=== PATIENT | female | born 1960 | race Caucasian/White ===

== ENCOUNTER 2023-02-22 13:07 | Outpatient (OUT) | payer MEDICARE, SELFPAY ==
--- NOTE | 2023-02-22 13:20 | XR_ITS ---
The [address] [address] Patient Name: PRASANNA RIVER MRN: [facility]:[id number] date: 1960 Sex: F Assigned Patient Location: MRI Current Patient Location: MRI Accession/Order Number: [id number] Exam Date: 02/22/2023 13:22 Report Date: 02/22/2023 23:31 At the request of: NON-STAFF PHYSICIAN Procedure: XR lumbar spine min 4V EXAMINATION: XR lumbar spine min 4V HISTORY: Lumbosacral region radiculopathy M54.17 ; chronic lumbar pain radiating into right leg COMPARISON: No relevant comparison available. FINDINGS: BONES: Mild left convex curvature lumbar spine. Mild degenerative facet arthropathy L4-L5, L5-S1. No fracture spondylolisthesis. DISC SPACES: Moderate disc space narrowing L4-L5, L5-S1. Disc bulging and likely some bone encroachment narrowing the L4-L5 and L5-S1 neural foramen. PARASPINOUS: Negative. No paraspinous abnormality is seen. OTHER: Negative. XR/XR lumbar spine min 4V IMPRESSION: 1. No appreciable acute abnormality. 2. Moderate degenerative changes of lower lumbar spine likely contributing to patient's symptoms. Electronically authenticated by: MOO CASTANO Date: 02/22/2023 23:31
--- NOTE | 2023-02-22 13:20 | MR_ITS ---
[address] [address] Patient Name: PRASANNA RIVER MRN: [facility]:[id number] date: 1960 Sex: F Assigned Patient Location: MRI Current Patient Location: MRI Accession/Order Number: [id number] Exam Date: 02/22/2023 13:39 Report Date: 02/22/2023 23:29 At the request of: NON-STAFF PHYSICIAN Procedure: MR lumbar spine wo con EXAMINATION: MR lumbar spine wo con HISTORY: Lumbosacral region radiculopathy M54.17 ; chronic lumbar pain radiating into right leg COMPARISON: No relevant comparison available. TECHNIQUE: A variety of imaging planes and parameters were utilized for visualization of suspected pathology. FINDINGS: For the purposes of numbering, sagittal T2 image # 8 extends from the T10 vertebral body superiorly to the S2 level inferiorly. PARASPINAL AREA: Normal with no visible mass. BONES: No fracture, pars defect, or osseous lesion. CORD/CAUDA EQUINA: Normal caliber, contour, and signal intensity. DISC LEVELS: 12-L1: No significant disc/facet abnormality, spinal stenosis, or foraminal stenosis. L1-L2: Mild diffuse disc bulging and disc space narrowing without significant central canal or foraminal stenosis. L2-L3: Early degenerative disc disease is present without focal protrusion or neural impingement. L3-L4: Moderate degenerative disc disease is present without visible neural impingement. L4-L5: Moderate marked disc space narrowing with mild diffuse disc bulging eccentric to the right causing moderate right foramen narrowing. No significant central canal or left foramen narrowing. Mild right degenerative facet arthropathy. L5-S1: Moderate right foramen narrowing secondary to moderate eccentric disc bulging to the right and moderate disc space narrowing. Mild degenerative facet arthropathy bilaterally. MR/MR lumbar spine wo con IMPRESSION: 1. Multilevel moderate foramen narrowing and mild central canal narrowing predominantly due to degenerative disc disease and disc bulging. 2. Mild degenerative facet arthropathy of lower lumbar spine. Electronically authenticated by: MOO CASTANO Date: 02/22/2023 23:29
== END 2023-02-22 13:08 | disposition home or self-care (01) ==
LOC: MRI 13:12
PROVIDERS: PCP Family Medicine
DX: M54.17 Radiculopathy, lumbosacral region (principal); M51.37 Other intervertebral disc degeneration, lumbosacral region; M48.07 Spinal stenosis, lumbosacral region
CPT/HCPCS: 72110; 72148

== ENCOUNTER 2023-04-12 08:54 | Outpatient (OUT) | payer MEDICARE, SELFPAY ==
--- OUTSIDE RECORDS SUMMARY | 2023-04-12 08:57 | XMS_ITS | CCD ---
Author Name Unknown Address [address] [place] [id number] Organization [facility] Care Team Providers Care Automatic Line Set Up Mechanic Name Role Phone ENRICO BELLO Admitting Unavailable ENRICO BELLO Attending Unavailable ENRICO BELLO Consulting Unavailable Larry Granado Primary Care Provider JODEE, DR NIELSEN Admitting Unavailable JODEE, DR NIELSEN Attending Unavailable ZAKIYA, DR EDWARDS Primary Care Unavailable DARIN, DR WOLFE Admitting Unavailable DARIN, DR WOLFE Attending Unavailable ZAKIYA, DR EDWARDS Primary Care Unavailable HENRIQUE MIGUEL Consulting Unavailable DARIN, DR WOLFE Consulting Unavailable JODEE, DR NIELSEN Admitting Unavailable JODEE, DR NIELSEN Attending Unavailable ZAKIYA, DR EDWARDS Primary Care Unavailable DR Prashant HERRING Consulting Unavailable Drew Herring Unavailable [phone] Drew Herring Admitting UnavailConner Disla Primary Care Unavailable Drew Herring Attending UnavailAashish Lopez Attending Unavailable Aashish Singh Admitting Unavailable NO FAMILY, PHYSICIAN Primary Care Unavailable Mathew Felix Attending Unavailable Mathew Felix Admitting Unavailable Conner Sigala Primary Care Unavailable CONNER SIGALA Attending Unavailable CONNER SIGALA Referring Unavailable JERMAINE VALLES Attending Unavailable CONNER SIGALA Referring Unavailable Allergies Allergy Classification Reported Allergen(s) Allergy Type Date of Onset Reaction(s) Facility (1 source) Aspirin Drug Allergy 05-17-19 07 [facility] Work Phone: (1 source) Ibuprofen Drug Allergy 05-17-19 07 [facility] Work Phone: (1 source) Acetaminophen / HYDROcodone Drug Allergy 12-11-19 14 [facility] (1 source) Aspirin Drug Allergy 02-11-20 13 [facility] (1 source) Ibuprofen Drug Allergy 02-11-20 13 [facility] (1 source) Latex Drug allergy (disorder) 02-27-20 14 [facility] (1 source) Meperidine Drug Allergy 02-11-20 13 [facility] (1 source) NSAIDs Drug allergy (disorder) 02-27-20 14 [facility] (2 sources) Sulfonamides (Antibiotic) Propensity to adverse reactions Unknown [place] Other (2 sources) Narcotic Pains Meds Propensity to adverse reactions (Emiliano) 01/12/2012 SOB SOB [place] Other (2 sources) Motrin, Aspirin Propensity to adverse reactions (Emiliano) 01/12/2012 Shock Shock [place] Other (1 source) Aspirin Drug Allergy 05-31-19 18 [facility]ository (1 source) Ibuprofen Drug Allergy 05-31-19 18 [facility] (1 source) Meperidine Drug Allergy 05-31-19 18 [facility] Medications Current Medications Medication Drug Class(es) Dates Sig (Normalized) Sig (Original) benoxinate hydrochloride 4 mg/ml / fluorescein sodium 2.5 mg/ml ophthalmic solution (1 source) Diagnostic Dye Start: 11-10-2021 End: 11-11-2021 fluorescein-benoxi shane 0.25-0.4 % 1 Drop (FLURESS) budesonide 3 mg delayed release oral capsule (2 sources) Corticosteroid Start: 09-07-2022 take 3 capsules by mouth once daily Budesonide 3 MG 3 CAPS Orally Once a day for 30 days August, Active pantoprazole 40 mg delayed release oral tablet (2 sources) Proton Pump Inhibitor Start: 09-19-2019 take 1 tablet by mouth every twenty-four hours Pantoprazole Sodium 40 MG 1 tablet Orally Once a day for 30 day(s) Sep, Active phenylephrine hydrochloride 25 mg/ml ophthalmic solution (1 source) alpha-1 Adrenergic Agonist Start: 11-10-2021 End: 11-11-2021 PHENYLephrine 2.5 % 1 Drop (AK-DILATE, ABRAHAM-SYNEPHRINE) potassium chloride 20 meq extended release oral tablet (1 source) take 1 tablet by mouth every twenty-four hours Potassium Chloride ER 20 MEQ 1 tablet with food Orally Once a day for 30 days Active probiotic (1 source) probiotic as directed Active proparacaine hydrochloride 5 mg/ml ophthalmic solution (1 source) Local Anesthetic Start: 11-10-2021 End: 11-11-2021 proparacaine 0.5 % 1 Drop (ALCAINE) tropicamide 10 mg/ml ophthalmic solution (1 source) Anticholinergic Start: 11-10-2021 End: 11-11-2021 tropicamide 1 % 1 Drop (MYDRIACYL) Completed/Discontinued Medications Medication Drug Class(es) Dates Sig (Normalized) Sig (Original) albuterol 0.83 mg/ml inhalation solution (1 source) beta2-Adrenergic Agonist Start: 07-01-2020 albuterol (PROVENTIL) 2.5 mg /3 mL (0.083 %) nebulizer solution Use via nebulizer as needed. 0 07/01/2020 Active Comment on above: Use via nebulizer as needed. ALPRAZolam 0.5 mg oral tablet (1 source) Benzodiazepine Start: 11-16-2006 take 1 tablet by mouth once daily alprazolam (XANAX) 0.5 mg ORAL Tab Take one(1) tablet three(3) times daily. 0 0 11/16/2006 Active Comment on above: Take one(1) tablet t hree(3) times daily. amLODIPine 5 mg oral tablet (1 source) Dihydropyridine Calcium Channel Arlyn take 1 tablet by mouth once daily amLODIPine (NORVASC) 5 mg tablet Take 1 tablet by mouth once daily. 0 Active Comment on above: Take 1 tablet by kat once daily. clonazePAM 1 mg oral tablet (1 source) Benzodiazepine Start: 01-13-2015 take 0.5 tablet by mouth once daily clonazePAM 1 MG 1/2 tab Orally daily Jan, Not-Taking clopidogrel 75 mg oral tablet (3 sources) P2Y12 Platelet Inhibitor Start: 11-02-2021 take 1 tablet by mouth once daily clopidogrel (PLAVIX) 75 mg tablet Take 75 mg by mouth once daily. 0 11/02/2021 Active Comment on above: Take 75 mg by mouth once daily. dicyclomine hydrochloride 20 mg oral tablet (1 source) Anticholinergic Start: 07-21-2020 take 1 tablet by mouth once daily dicyclomine (BENTYL) 20 mg tablet Take 20 mg by mouth once daily. 0 07/21/2020 Active Comment on above: Take 20 mg by mouth once daily. escitalopram 20 mg oral tablet (3 sources) Serotonin Reuptake Inhibitor Start: 10-16-2021 take 1 tablet by mouth once daily escitalopram oxalate (LEXAPRO) 20 mg tablet Take 20 mg by mouth once daily. 0 10/16/2021 Active take 1 tablet by kat th every twenty-four hours Lexapro 10 MG 1 tablet Orally Once a day Active Comment on above: Take 20 mg by mouth once daily. Ethinyl Estradiol / Norethindrone (1 source) Estrogen Start: 05-18-19 07 LOESTRIN 04/30 (21) 1 MG-20 MCG TAB Take one(1) tablet daily. 0 0 05/18/2006 Active Comment on above: Take one(1) tablet d aily. fluticasone propionate 0.05 mg/actuat metered dose nasal spray (1 source) Corticosteroid Start: 08-22-19 take 1 spray(s) nasal route once daily fluticasone (FLONASE) 50 mcg/actuation nasal spray Use 1 [place] in each nostril once daily. 0 08/21/2021 Active Comment on above: Use 1 [place] in each nostril once daily. Methylcellulose (1 source) Citrucel Not-Jonnathan ing 24 hr metoprolol succinate 25 mg extended release oral tablet (4 sources) beta-Adrenergic Arlyn Start: 05-18-19 End: 11-11-19 22 TOPROL XL 25 MG 24 HR TAB Take one(1) tablet daily. 0 0 05/18/2006 11/10/2021 Discontinued take 1 tablet by kat th every twenty-four hours Metoprolol Tartrate 25 MG 1 tablet Orall y once a day Active Comment on above: Take 1 tablet by kat th once daily. Take one(1) tablet d aily. omeprazole 40 mg delayed release oral capsule (1 source) Proton Pump Inhibitor take 1 capsule by mouth once daily omeprazole (PRILOSEC) 40 mg capsule Take 40 mg by mouth once daily. 0 Active Comment on above: Take 40 mg by mouth once daily. 24 hr oxybutynin chloride 10 mg extended release oral tablet (1 source) Cholinergic Muscarinic Antagonist Start: 2 take 1 tablet by mouth once daily oxybutynin ER (DITROPAN XL) 10 mg 24 hr tablet Take 10 mg by mouth once daily. 0 09/21/2021 Active Comment on above: Take 10 mg by mouth once daily. pravastatin sodium 40 mg oral tablet (3 sources) HMG-CoA Reductase Inhibitor Start: 2 take 1 tablet by mouth once daily pravastatin (PRAVACHOL) 40 mg tablet Take 40 mg by mouth once daily. 0 08/20/2021 Active take 1 tablet by mouth once ed y Pravastatin 10 mg one tab orally daily Active Comment on above: Take 40 mg by mouth once daily. predniSONE 10 mg oral tablet (2 sources) Start: 08-19-19 predniSONE 10 MG 8 tablet on day one then decrease by 1 tablet until gone Orally Once a day for 8 day(s) August, Not-Taking risperiDONE 0.25 mg oral tablet (1 source) Atypical Antipsychotic Start: 11-17-19 07 take 1 tablet by mouth once daily risperidone (RISPERDAL) 0.25 mg ORAL Tab Take one(1) tablet two(2) times daily. 0 0 11/16/2006 Active Comment on above: Take one(1) tablet t wo(2) times daily. THERAPEUTIC MULTIVITAMIN TAB (1 source) Start: 05-18-19 THERAPEUTIC MULTIVITAMIN TAB Take one(1) tablet daily. 0 0 05/18/2006 Active Comment on above: Take one(1) tablet d aily. tiZANidine (1 source) Central alpha-2 Adrenergic Agonist tiZANidine HCl Not-Taking Problems Active Problems Problem Classification Problem Date Documented Da te Episodic/Chronic Abdominal pain (4 sources) Abdominal pain; Translations: [Unspecified abdominal pain] Episodic Anal and rectal conditions (2 sources) Anal and rectal polyp; Translations: [Rectal polyp] Episodic Blindness and vision defects (1 source) Visual field defect; Translations: [Unspecified visual field defects] Episodic Esophageal disorders (2 sources) Gastroesophageal reflux disease; Translations: [Gastro-esophageal reflux disease without esophagitis] Chronic Genitourinary symptoms and ill-defined conditions (1 source) Post-void dribbling; Translations: [Post-void dribbling] Onset: 3 Chronic Intestinal obstruction without hernia (2 sources) Small bowel obstruction; Translations: [Unspecified intestinal obstruction, unspecified as to partial versus complete obstruction] Episodic Noninfectious gastroenteritis (5 sources) Colitis; Translations: [Noninfective gastroenteritis and colitis, unspecified] Onset: 3 Episodic Other and unspecified benign neoplasm (2 sources) Hyperplastic polyp of intestine; Translations: [Polyp of colon] Episodic Other and unspecified benign neoplasm (2 sources) Benign neoplasm of rectum; Translations: [Benign neoplasm of rectum] Episodic Other and unspecified benign neoplasm (2 sources) Benign neoplasm of colon; Translations: [Benign neoplasm of sigmoid colon] Episodic Other bone disease and musculoskeletal deformities (4 sources) Other specified disorders of bone density and structure, unspecified site; Translations: [OTH D/O BONE DEN STRUCT UNS SITE] Onset: 3 Episodic Other gastrointestinal disorders (2 sources) Irritable bowel syndrome with diarrhea; Translations: [Irritable bowel syndrome with diarrhea] Chronic Other gastrointestinal disorders (2 sources) Diarrhea; Translations: [Diarrhea, unspecified] Episodic Other gastrointestinal disorders (2 sources) Dysphagia; Translations: [Dysphagia, unspecified] Episodic Other screening for suspected conditions (not mental disorders or infectious disease) (2 sources) Encounter for screening for osteoporosis; Translations: [Encounter for screening mammogram for malignant neoplasm of breast] Onset: 3 Episodic Regional enteritis and ulcerative colitis (2 sources) Chronic ulcerative pancolitis; Translations: [Ulcerative (chronic) pancolitis with unspecified complications] Chronic Residual codes; unclassified (4 sources) Asymptomatic menopausal state; Translations: [ASYMPTOMATIC MENOPAUSAL STATE] Onset: 3 Episodic Spondylosis; intervertebral disc disorders; other back problems (2 sources) Other intervertebral disc degeneration, lumbar region; Translations: [Spondylosis without myelopathy or radiculopathy, lumbar region] Onset: 3 Chronic Spondylosis; intervertebral disc disorders; other back problems (1 source) Radiculopathy, site unspecified; Translations: [RADICULOPATHY SITE UNSPECIFIED] Onset: 3 Episodic Urinary tract infections (1 source) Urinary tract infections; Translations: [Urinary tract infection, site not specified] Onset: 3 Past or Other Problems Problem Classification Problem Date Documented Da te Episodic/Chronic Genitourinary symptoms and ill-defined conditions (3 sources) Retention of urine, unspecified; Translations: [Frequency of micturition] Onset: 09-09-2022 Episodic Other gastrointestinal disorders (6 sources) Diarrhea, unspecified; Translations: [DIARRHEA UNSPECIFIED] Onset: 08-19-2022 Episodic Other nervous system disorders (1 source) Unsteadiness on feet; Translations: [Unsteadiness on feet] Onset: 04-30-2022 Episodic Results Test Name Value Interpretation Reference Range Facil ity XR CHEST 2 VIEWSon 3 XR CHEST 2 VIEWS EXAMINATION/TECHNIQU E: XR CHEST 2 VIEWS HISTORY: Chest pressure. COMPARISON: None RESULT: No focal consolidation. No pleural effusion. No pneumothorax. Normal cardiomediastinal silhouette. No acute osseous findings. Surgical clips right upper quadrant. IMPRESSION: No acute radiographic abnormality. ELECTRONICALLY SIGNED BY: Clark Wheeler MD Normal Not Available Urine Cultureon 09-09-2022 Bacteria identified Cx Nom (U) No Growth 2 Days PERFORMED BY: [place] [address] PATHOLOGIST STILL OPERATOR HELPER PATEL LAWSON M.D. Normal [facility] Comment on above: Performed By: #### C UU #### [address] 09-02-2022 L --- Specimen: [id number] Received: 09/02/22 Status: MOLLY Katelyn Num: [id number] Spec Type: Surgical Subm Dr: Drew Herring MD Tissues: A Colon Biopsy (RANDOM COLON BX) Procedures: Trichrome, HE/2, Gross/Micro L4, CD3 Age/ Patient Sex Location Account Attending Physician Rosalba River Prashant 62/F [id number] Drew Herring MD SPEC NUM: [id number] RECD: 09/02/22-1315 STATUS: MOLLY ZEPEDA NUM: [id number] IOANA: 09/02/22- [facility] DR: Drew Herring MD ENTERED: 09/02/22-1317 [facility] DR: DIAZ TYPE: Surgical DEPT: S ORDERED: Trichrome, HE/2, Gross/Micro L4, CD3 ORDERED: Trichrome, HE/2, Gross/Micro L4, CD3 Pathological Diagnosis Colon, random, biopsy: - Colonic mucosa with changes most consistent with lymphocytic colitis. - There is no evidence of chronic colitis. - Negative for epithelial dysplasia. - CD3 is positive for increased surface intraepithelial lymphocytes. - Trichrome is negative for increased subepithelial collagen table. COMMENT: Sections demonstrate small fragments of intestinal mucosa with well preserved glandular architecture. There is colonic epithelial lymphocytosis without thickened subepithelial collagen. A few intraepithelial neutrophils are seen. There is no evidence of chronicity. Patchy lymphoid aggregates are also present. The histologic changes are most consistent with lymphocytic colitis. Clinical correlation is advised. Clinical Information Colitis, rule out microscopic colitis Gross Description Received in formalin labeled with the patient's name, number and random biopsies colon rule out microscopic colitis are multiple fragments of soft torres tissue measuring 1.7 x 0.4 x 0.2 cm in aggregate. Entirely submitted in one cassette labeled A1. Specimen: [id number] Received: 09/02/22 Status: MOLLY Zepeda Num: [id number] Spec Type: Surgical Subm Dr: Drew Herring MD Tissues: A Colon Biopsy (RANDOM COLON BX) Procedures: Trichrome, HE/2, Gross/Micro L4, CD3 Patient: PericoLisaRosalba L [id number] (Continued) Specimen: Received: 09/02/22 (Continued) Signed (signature on file) Sunita Copeland MD 09/03/22 1517 Specimen: [id number] Received: 09/02/22 Status: MOLLY Zepeda Num: [id number] Spec Type: Surgical Subm Dr: Drew Herring MD Tissues: A Colon Biopsy (RANDOM COLON BX) Procedures: Trichrome, HE/2, Gross/Micro L4, CD3 Patient: Rosalba River [id number] (Continued) Specimen: [id number] Received: 09/02/22 (Continued) Microscopic Description Two H E slides reviewed. The microscopic examination confirms the diagnosis. CPT Codes 98739, 57118, 24656 Specimen: [id number] Received: 09/02/22 Status: MOLLY Zepeda Num: [id number] Spec Type: Surgical Subm Dr: Drew Herring MD Tissues: A Colon Biopsy (RANDOM COLON BX) Procedures: Trichrome, HE/2, Gross/Micro L4, CD3 Patient: Rosalba River [id number] (Continued) Signed (signature on file) Sunita Copeland MD 09/03/22 1517 [facility] CBC AUTO DIFFon 08-19-2022 BASO # 0.1 103/ul Normal 0.0-0.1 [facility] Comment on above: Performed By: #### C BC #### [facility] [address] [place], [place] [address] Dr. Jenny Shin Basophils/100 WBC (Bld) 0.8 % Normal 0.2-2.0 [facility] Comment on above: Performed By: #### C BC #### [facility] [address] [place], [place] [address] Dr. Yilan Shin EO # 0.2 103/ul Normal 0.0-0.7 [facility] Comment on above: Performed By: #### C BC #### [facility] [address] [place] [address] Dr. Jenny Shin Eosinophils/100 WBC (Bld) 2.2 % Normal 0.9-7.0 [facility] Comment on above: Performed By: #### C BC #### [facility] [address] [place] [address] Dr. Jenny Shin Erythrocyte distribution width (RBC) [Ratio] 12.9 % Normal 11.0-15.0 [facility] Comment on above: Performed By: #### C BC #### [facility] [address] [place] [address] Dr. Jenny Shin Hematocrit (Bld) [Volume fraction] 43.0 % Normal 36.0-48.0 [facility] Comment on above: Performed By: #### C BC #### [facility] [address] [place] [address] Dr. Jenny Shin Hemoglobin (Bld) [Mass/Vol] 14.3 g/dL Normal 12.0-16.0 [facility] Comment on above: Performed By: #### C BC #### [facility] [address] [place] [address] Dr. Jenny Shin IG # 0.03 10e3/ul Normal 0.00-0.03 [facility] Comment on above: Performed By: #### C BC #### [facility] [address] [place] [address] Dr. Jenny Shin IG % 0.4 % Normal 0.0-0.5 [facility] Comment on above: Performed By: #### C BC #### [facility] [address] [place] [address] Dr. Jenny Shin LYMPH # 2.8 103/ul Normal 1.2-3.8 [facility] Comment on above: Performed By: #### C BC #### [facility] [address] [place] [address] Dr. Jenny Shin Lymphocytes/100 WBC (Bld) 35.7 % Normal 20.5-60.0 [facility] Comment on above: Performed By: #### C BC #### [facility] [address] [place] [address] Dr. Jenny Shin MANUAL DIFF REQ NO Normal [facility] Comment on above: Performed By: #### C BC #### [facility] [address] [place] [address] Dr. Jenny Shin MCH (RBC) [Entitic mass] 28.4 pg Normal 26.7-34.0 [facility] Comment on above: Performed By: #### C BC #### [facility] [address] [place] [address] Dr. Jenny Shin MCHC (RBC) [Mass/Vol] 33.3 g/dL Normal 29.9-35.2 [facility] Comment on above: Performed By: #### C BC #### [facility] [address] [place] [address] Dr. Jenny Shin MCV (RBC) [Entitic vol] 85.3 fL Normal 81.0-99.0 [facility] Comment on above: Performed By: #### C BC #### [facility] [address] [place] [address] Dr. Jenny Shin MONO # 0.6 103/ul Normal 0.3-0.8 [facility] Comment on above: Performed By: #### C BC #### [facility] [address] [place] [address] Dr. Jenny Shin Monocytes/100 WBC (Bld) 7.3 % Normal 1.7-12.0 [facility] Comment on above: Performed By: #### C BC #### [facility] [address] [place] [address] Dr. Jenny Shin NEUT # 4.1 103/ul Normal 1.4-6.5 [facility] Comment on above: Performed By: #### C BC #### [facility] [address] [place] [address] Dr. Jenny Shin Neutrophils/100 WBC (Bld) 53.6 % Normal 43.0-75.0 [facility] Comment on above: Performed By: #### C BC #### [facility] [address] [place] [address] Dr. Jenny Shin Platelet mean volume (Bld) [Entitic vol] 9.5 fL Normal 9.5-13.5 [facility] Comment on above: Performed By: #### C BC #### [facility] [address] [place] [address] Dr. Jenny Shin PLT 339 103/ul Normal 150-450 [facility] Comment on above: Performed By: #### C BC #### [facility] [address] [place] [address] Dr. Jenny Shin RBC 5.04 106/ul Normal 4.20-5.40 [facility] Comment on above: Performed By: #### C BC #### [facility] [address] [place] [address] Dr. Jenny Shin WBC 7.7 103/ul Normal 4.0-11.0 [facility] Comment on above: Performed By: #### C BC #### [facility] [address] [place] [address] Dr. Jenny Shin CRPon 08-19-2022 CRP [Mass/Vol] mg/L Normal <=1.0 [facility] Comment on above: Performed By: #### C RP, CMP #### [facility] [address] [place] [address] Dr. Jenny Shin PROF 14(COMP METB)on 023 Albumin [Mass/Vol] 3.7 g/dL Normal 3.4-5.0 [facility] Comment on above: Performed By: #### C RP, CMP #### [facility] [address] [place] [address] Dr. Jenny Shin Albumin/Globulin [Mass ratio] 0.9 {ratio} Normal [facility] Comment on above: Performed By: #### C RP, CMP #### [facility] [address] [place] [address] Dr. Jenny hSin ALP [Catalytic activity/Vol] 99 U/L Normal 46-116 [facility] Comment on above: Performed By: #### C RP, CMP #### [facility] [address] [place] [address] [address] Jenny Shin ALT [Catalytic activity/Vol] 24 U/L Normal 14-59 [facility] Comment on above: Performed By: #### C RP, CMP #### [facility] [address] [place] [address] [address] Jenny Shin Anion gap [Moles/Vol] 12.3 mmol/L Normal [facility] Comment on above: Performed By: #### C RP, CMP #### [facility] [address] [place] [address] [address] Jenny Shin AST [Catalytic activity/Vol] 25 U/L Normal 15-37 [facility] Comment on above: Performed By: #### C RP, CMP #### [facility] [address] [place] [address] Dr. Jenny Shin Bilirubin [Mass/Vol] 0.5 mg/dL Normal 0.2-1.0 [facility] Comment on above: Performed By: #### C RP, CMP #### [facility] [address] [place] [address] [address] Jenny Shin Calcium [Mass/Vol] 9.0 mg/dL Normal 8.5-10.1 [facility] Comment on above: Performed By: #### C RP, CMP #### [facility] [address] [place] [address] [address] Jenny Shin Chloride [Moles/Vol] 105 mmol/L Normal 98-107 [facility] Comment on above: Performed By: #### C RP, CMP #### [facility] [address] [place] [address] [address] Jenny Shin CO2 [Moles/Vol] 26.6 mmol/L Normal 21.0-32.0 [facility] Comment on above: Performed By: #### C RP, CMP #### [facility] [address] [place] [address] [address] Jenny Shin Creatinine [Mass/Vol] 0.87 mg/dL Normal 0.55-1.02 [facility] Comment on above: Performed By: #### C RP, CMP #### [facility] [address] [place] [address] [address] Jenny Shin EGFR-AF MARSHALLESE >60 Normal >=60 [facility] Comment on above: Performed By: #### C RP, CMP #### [facility] [address] [place] [address] [address] Jenny Shin EGFR-NON AF MARSHALLESE >60 Normal >=60 [facility] Comment on above: Performed By: #### C RP, CMP #### [facility] [address] [place] [address] [address] Jenny Shin Globulin (S) [Mass/Vol] 3.9 g/dL Normal [facility] Comment on above: Performed By: #### C RP, CMP #### [facility] [address] [place] [address] Dr. Jenny Shin Glucose [Mass/Vol] 105 mg/dL Normal 74-106 [facility] Comment on above: Performed By: #### C RP, CMP #### [facility] [address] [place] [address] [address] Jenny Shin Potassium [Moles/Vol] 2.9 mmol/L Critically low 3.5-5.1 [facility] Comment on above: Performed By: #### C RP, CMP #### [facility] [address] [place] [address] [address] Jenny Shin Protein [Mass/Vol] 7.6 g/dL Normal 6.4-8.2 [facility] Comment on above: Performed By: #### C RP, CMP #### [facility] [address] [place] [address] [address] Jenny Shin Sodium [Moles/Vol] 141 mmol/L Normal 136-145 [facility] Comment on above: Performed By: #### C RP, CMP #### [facility] [address] [address] [address] Jenny Shin Urea nitrogen [Mass/Vol] 10.0 mg/dL Normal 7.0-18.0 [facility] Comment on above: Performed By: #### C RP, CMP #### [facility] [address] [address] [address] Jenny Shin Urea nitrogen/Creatinin e [Mass ratio] 11.5 mg/mg Normal [facility] Comment on above: Performed By: #### C RP, CMP #### [facility] [address] [address] [address] Jenny Shin SED RATE WESTERGRENon 2022 SED RATE 17 mm/hr Normal <=30 [facility] Comment on above: Performed By: #### S EDR #### [facility] [address] [address] [address] Jenny Shin MG MAMM SCREEN 3D JELENA CADon 07-06-2022 MG MAMM SCREEN 3D JELENA CAD Patient: ROSALBA RIVER Exam Date: 07/06/2022 : 1960 Gender:F Ordering : DR YANETH WEBSTER Admission #: [id number] Family : Order #: [id number] CLICK HERE TO VIEW EXAM RADIOLOGY REPORT PROCEDURE: MAMMOGRAM SCREENING 3D BILATERAL CAD COMPARISON: MG MAMM SCREEN 3D JELENA CAD, 03/21/2020. INDICATIONS: Screening mammography Calculator Name NCI Breast Cancer Risk Assessment Tool 5 Year Breast Cancer Risk Not Reported. Lifetime Breast Cancer Risk Not Reported. Personal Breast Cancer No Personal Ovarian Cancer No Treatments None Family Cancers None LOCATION: [facility] BREAST COMPOSITION: Scattered areas fibroglandular density. FINDINGS: DIAGNOSTIC CATEGORY 2--BENIGN FINDING: RIGHT BREAST: No significant suspicious finding. Scattered benign-appearing calcifications are present. Scattered benign-appearing lymph nodes are present. No significant change has occurred. LEFT BREAST: No significant suspicious finding. Scattered benign-appearing lymph nodes are present. No significant change has occurred. RECOMMENDATIONS: ROUTINE MAMMOGRAM AND CLINICAL EVALUATION IN 12 MONTHS. PLEASE NOTE: A NORMAL MAMMOGRAM DOES NOT EXCLUDE THE POSSIBILITY OF BREAST CANCER. A CLINICALLY SUSPICIOUS PALPABLE LUMP SHOULD BE BIOPSIED. Dictated by: Henrique Miguel M.D. on 07/07/2022 at 07:33 Approved by: Henrique Miguel M.D. on 07/07/2022 at 07:43 Normal [facility] XR DEXA BONE DENSITYon 07-06 XR DEXA BONE DENSITY EXAMINATION: XR DEXA BONE DENSITY, 07/06/2022 3:20 PM EDT HISTORY: Screening for osteoporosis COMPARISON: None. TECHNIQUE: Dual-energy X-ray absorptiometry (DEXA) bone density study performed for the axial skeleton. FINDINGS: SPINE ANALYSIS: Average bone mineral density is 1.199 g/cm2. T-score (standard deviation relative to young adult mean): 0.2 . HIP ANALYSIS: Lowest bone mineral density is within the left femoral neck, 0.896 g/cm2. T-score (standard deviation relative to young adult mean): -1.0 . IMPRESSION: World Edd Organization Classification: Normal - Low Fracture Risk Electronically authenticated by: HENRIQUE MIGUEL Date: 2022-07-06 21:49 Normal [facility] XR lumbar spine 6V w bending on 04-30-2022 XR lumbar spine 6V w bending [facility] [address] XRay Report Signed Patient: Rosalba Mcneill MR#: [id number] : 1960 Acct:[id number] Age/Sex: 62 / F ADM Date: 04/30/22 Loc: ICXD Room: Type: [facility] Attending Dr: Mathew Felix MD Copies to: Mathew Felix MD Ordering Provider: Mathew Felix MD Date of Service: 04/30/22 XR/XR lumbar spine 6V w bending: Z23. ENCOUNTER FOR ADMINISTRATION OF VACCINE LUMBAR SPINE COMPLETE WITH FLEXION AND EXTENSION VIEWS - 8 views: CLINICAL HISTORY: Unsteady on her feet. No injury. COMPARISON: 03/17/2010 AP, lateral (neutral, flexion and extension), both oblique and AP and lateral coned-down views of the lumbosacral junction were obtained. The bony structures are osteopenic. There is subtle levoscoliotic curvature. There is no evidence of fracture. Alignment is maintained on the lateral views. No instability is seen. Disc space narrowing is present greatest at L4-5 and the lumbosacral junction. There are small endplate spurs and lower lumbar facet hypertrophy. No pars defect is identified. The sacroiliac joints are maintained and show mild sclerosis. There are no paraspinal soft tissue abnormalities. XR/XR lumbar spine 6V w bending IMPRESSION: OSTEOPENIA, SUBTLE SCOLIOSIS AND DEGENERATIVE CHANGES. Impression dictated by: Melly Navarro M.D.04/30/2022 4:46 PM Dictation Location: RADIO-PC-10 Transcribed By: [facility] 04/30/221645 Dictated By: Melly Navarro MD 04/30/22 1639 Signed By: 04/30/22 164 [facility] CNCOon 03-11-2021 CNCO Letter Text Normal [facility] CNPNon 01-09-2021 CNPN Telephone (OPHTMN) ROSALBA MCNEILL ([id number]) 1960 F Date Time Provider Department 01/09/21 SHAHZAD PIZARRO OPHTMN During your visit today, we recorded the following information about you: Candie Estevez 01/09/2021 3:47 PM Signed Received outside medical records for the following patient. Records have been sent to scanning for Epic entry. Patient is scheduled to be seen by Dr. Pizarro 05/05/2021. Allergies As of Date: 01/09/2021 Noted Allergy Reaction ASPIRIN 05/17/2006 2 - Rash IBUPROFEN 05/17/2006 2 - Rash Date Reviewed: 11/16/2006 Reviewed by: Mariam Manning - Reviewed Reason for Visit: Received Outside Medical Records [[id number]] Prescriptions as of 01/09/2021 - risperidone (RISPERDAL) 0.25 mg ORAL Tab Take one(1) tablet two(2) times daily. - alprazolam (XANAX) 0.5 mg ORAL Tab Take one(1) tablet three(3) times daily. - TOPROL XL 25 MG 24 HR TAB Take one(1) tablet daily. - LOESTRIN 04/30 (21) 1 MG-20 MCG TAB Take one(1) tablet daily. - THERAPEUTIC MULTIVITAMIN TAB Take one(1) tablet daily. Problem List As Of Date: 01/09/2021 (None) Encounter Status:Closed by CANDIE ESTEVEZ on 01/09/21 Normal [facility] CT HEAD W/O CONTRAST [id number] 10-09-2018 CT HEAD W/O CONTRAST [id number] CT SCAN OF THE HEAD WITHOUT CONTRAST CLINICAL HISTORY: REASON FOR STUDY: Cerebrovascular accident TECHNIQUE: Helically acquired axial CT images were obtained through the head without contrast. FINDINGS: The brain appears morphologically normal. Ross and white matter are normal in attenuation. No intra-axial or extra-axial mass or abnormal fluid collection is seen. IMPRESSION: Negative CT scan of the brain. Normal [employer] [facility] Comment on above: Order Comment: REASO N FOR STUDY: Cerebrovascular accident No Panel Information [facility] Vital Signs Date Time Vital Sign Value Performing Clinician Facility 03-10-2023 14:45-0500 Body height 162.56 cm Drew Herring Other [facility] Other 03-10-2023 14:45-0500 Body mass index (BMI) [Ratio] 39.13 kg/m2 Drew Herring Other [facility] Other 03-10-2023 14:45-0500 Body weight 103.42 kg Drew Herring Other [facility] Other 03-10-2023 14:45-0500 Diastolic blood pressure 93 mm[Hg] Drew Herring Other [facility] Other 03-10-2023 14:45-0500 Systolic blood pressure 168 mm[Hg] Drew Herring Other [facility] Other 09-07-2022 14:45-0400 Body height 162.56 cm Drew Herring Other [facility] Other 09-07-2022 14:45-0400 Body mass index (BMI) [Ratio] 36.9 kg/m2 Drew Herring Other [facility] Other 09-07-2022 14:45-0406 Body weight 97.52 kg Drew Herirng Other [facility] Other Encounters Encounter Date Encounter Type Care Provider Facility Start: 03-17-2023 End: 03-17-2023 ambulatory JERMAINE Cerda HAI Not Available Start: 03-12-2023 End: 03-13-2023 ambulatory CONNER SIGALA Not Available Start: 03-10-2023 End: 03-10-2023 ambulatory Drew Herring Other [facility] Other Start: 03-10-2023 Office outpatient visit 15 minutes Drew Herring [facility] Start: 09-09-2022 End: 09-09-2022 ambulatory Aashish Singh Facility:[facility] Start: 09-07-2022 End: 09-07-2022 ambulatory Drew Herring Other [facility] Other Start: 09-07-2022 Office outpatient visit 15 minutes Drew Herring [facility] G[facility] Start: 09-02-2022 End: 09-02-2022 ambulatory Drew Herring Facility:[facility] Start: 08-19-2022 End: 08-20-[address] DOCTOR ELLSWORTH Facility:[facility] Start: 07-06-2022 End: 07-07-[address] YANETH WEBSTER Facility:[facility] Start: 05-27-2022 End: 07-20-[address] DOCTOR ELLSWORTH Facility:[facility] Start: 04-30-2022 End: 04-30-2022 ambulatory Mathew Felix Facility:[facility] Start: 11-10-2021 End: 11-10-2021 Patient encounter procedure Shahzad Pizarro DO Work Phone: Ophthalmology Comment on above: Visual field defect (Primary Dx) Start: 10-09-2018 End: 10-09-2018 Patient encounter procedure ENRICO BELLO Facility:[facility] Procedures Date Procedure Procedure Detail Performing Clinician Start: 11-10-2021 End: 11-10-2021 Visual field xm uni/bi w/interp extended exam Shahzad Pizarro DO Work Phone: Start: 03-21-2020 Mammography Shahzad bear DO Work Phone: Plan of Treatment Date Care Activity Detail Author Start: 12-10-2021 Influenza vaccination INFLUENZA (#1) [facility] Start: 03-21-2021 Mammography MAMMOGRAM [facility] Start: 12-11-2020 COVID-19 VACCINE (3 - Booster) COVID-19 VACCINE (3 - Booster) [facility] Start: 2012 SHINGRIX VACCINE (1 of 2) SHINGRIX V ACCINE (1 of 2) [facility] Start: 02-01-2012 LIPID SCREEN LIPID SCREEN [facility] Start: 01-31-2010 DIABETES SCREEN DIABETES SCREEN [facility] Start: 2007 COLOGUARD (FIT-DNA) COLOGUARD (FIT-D NA) [facility] Start: 2007 Colonoscopy COLONOSCOPY [facility] Start: 2007 COLORECTAL CANCER SCREENING COLORECTAL CANCER SCREENING [facility] Start: [address] COLONOGRAPHY [facility] Start: 2007 FECAL OCCULT BLOOD FECAL OCCULT BLOO D [facility] Start: [address] [facility] Start: 1992 HPV TESTING HPV TESTING [facility] Start: 1983 PAP TESTING PAP TESTING [facility] Start: 1981 Urine microalbumin profile DTAP,TDAP ,TD (1 - Tdap) [facility] Start: 1980 HEPATITIS C SCREENING HEPATITIS C SC REENING [facility] Start: 1980 HIV SCRE[address] HIV SCREENING [facility] Start: 1974 Adult depression scr eening assessment DEPRESSION SCREENING [facility] Immunizations Immunization Date Immunization Notes Care Provider Fa cility 07-11-2020 COVID-19 vaccine, fu ll dose (MODERNA) Shahzad Pizarro DO Work Phone: [facility] 07-27-2016 tetanus toxoid, reduced diphtheria toxoid, and acellular pertussis vaccine, adsorbed Drew Nima Other [facility] Other Payers Date Payer Category Payer Private Health Insurance [id number] 2022 Self-pay 2022 Unknown [id number] 2021 Medicare DEVOTED MEDICARE DEVOTED HEALTH [id number] 2021-Present [phone] [address] [place] [id number] [facility] [id number] 2020 Unknown [id number] 1960 Unknown [id number] 593 1960 Unknown [id number]. 593 1960 Unknown [id number]. 593 1960 Unknown [id number]. 1259 1960 Unknown [id number]. 1259 1960 Unknown [id number]. 1259 Medicare [id number] Unknown [id number] 531 Unknown [id number] 531 Unknown [id number] 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 Start: 10-31-2021 End: 11-10-2021 Exposure to SARS-CoV-2 (event) Not sure [facility] Sex Assigned At Sex Assigned At Bir th [facility] Other Evaluation note 03-10-2023 Note Date & Type Note Facility 03-10-2023 Evaluation note Encounter Date Diagnosis Assessment Notes Feb, Microscopic colitis (ICD-10 - K52.89) PATIENT DOING WELL ON THE BUDESONIDE. WILL HAVE PATIENT STOP THE MEDICATION AFTER SHE HAS BEEN ON IT FOR ONE YEAR AND SEE HOW SHE DOES. [facility] Other Evaluation note 09-07-2022 Note Date & Type Note Facility 09-07-2022 Evaluation note Encounter Date Diagnosis Assessment Notes August, Diarrhea (ICD-10 - R19.7) August, Microscopic colitis (ICD-10 - K52.89) PATIENT IS IMPROVING ON PREDNISONE. SHE SHOULD ALSO CONTINUE ON HER PANTOPRAZOLE TO HELP KEEP INFLAMMATION UNDER CONTROL. START BUDESONIDE 3 MG 3 PO QAM FOR MAINTENANCE THERAPY. RETURN VISIT HERE IN SIX MONTHS [facility] Other Progress note 11-10-2021 Note Date & Type Note Facility 11-10-2021 Note HNO ID: [id number] Author: Shahzad Pizarro, DO Service: ? Author Type: Physician Type: Progress Notes Filed: 11/10/2021 3:25 PM Note Text: Visual field defect (primary encounter diagnosis) I don't see any defect on today's study so just observe I have confirmed and edited as necessary the relevant ophthalmic history, ROS, and the neuro exam findings as obtained by others. I have seen and examined this patient. I have discussed the case and the management of this patient's care with the Resident/Fellow, if applicable. I also have reviewed and agree with the assessment and plan as stated above and agree with all of its relevant components. Shahzad Pizarro DO November 10, 2021 3:25 PM [facility] History of Present illness Narrative 11-10-2021 Shahzad Pizarro DO - 11/10/2021 3:25 PM EDT Note Date & Type Note Facility 11-10-2021 History of Presen t illness Narrative Visual field defect (primary encounter diagnosis) I don't see any defect on today's study so just observe I have confirmed and edited as necessary the relevant ophthalmic history, ROS, and the neuro exam findings as obtained by others. I have seen and examined this patient. I have discussed the case and the management of this patient's care with the Resident/Fellow, if applicable. I also have reviewed and agree with the assessment and plan as stated above and agree with all of its relevant components. Shahzad Pizarro DO November 10, 2021 3:25 PM documented in this encounter [facility] History general Narrative - Reported 04-11-2014 Note Date & Type Note Facility 04-11-2014 History general N arrative - Reported Type Medical History Anxiety Medical History severe depression Medical History mild stroke in april 2014 Medical History high blood pressure Medical History Colonoscopy 02-03-15 Medical History Hypertension, essential, benign Medical History Osmotic diarrhea Medical History Pancolitis Medical History BMI 36.0-36.9,adult Medical History Body mass index (BMI ) of 35.0-35.9 in adult Medical History Dietary counseling and surveilla nce Surgical History appendix 1981 Surgical History tonsils AGE 12 Surgical History left ankle 1991 Hospitalization History stroke 04/2014 Hospitalization History see above [facility] Other History general Narrative - Reported 04-11-2014 Note Date & Type Note Facility 04-11-2014 History general N arrative - Reported Type Medical History Anxiety Medical History severe depression Medical History mild stroke in april 2014 Medical History high blood pressure Medical History Colonoscopy 02-03-15 Medical History Hypertension, essential, benign Medical History Osmotic diarrhea Medical History Pancolitis Medical History BMI 36.0-36.9,adult Medical History Body mass index (BMI ) of 35.0-35.9 in adult Medical History Dietary counseling and surveilla nce Surgical History appendix 1982 Surgical History tonsils AGE 12 Surgical History left ankle 1991 Surgical History TOP TEETH EXTRACTED Hospitalization History stroke 04/2014 Hospitalization History see above [facility] Other Evaluation note Note Date & Type Note Facility Evaluation note Diagnosis Visual field defect- Primary Visual field defect, unspecified documented in this encounter [facility] Summary Purpose Family History No Family History Records FoundNo Family History Records FoundNo Family History Records FoundNo Family History Records FoundNo Family History Records Found Advance Directives No Advanced Directives Records FoundNo Advanced Directives Records FoundNo Advanced Directives Records FoundNo Advanced Directives Records FoundNo Advanced Directives Records Found Additional Source Comments INFORMATION SOURCE (unrecogn ized section and content) DATE CREATED AUTHOR 10/19/2018 [facility] DATE CREATED AUTHOR AUTHOR'S ORGANIZ ATION 11/12/2021 [facility] DATE CREATED AUTHOR AUTHOR'S ORGANIZ ATION 08/23/2022 [facility] DATE CREATED AUTHOR AUTHOR'S ORGANIZ ATION 12/11/2022 [facility] DATE CREATED AUTHOR AUTHOR'S ORGANIZ ATION 03/18/[address] [facility] EPIC Source Comments (unrecognize d section and content) In the event this informatio n is protected by the Federal Confidentiality of Alcohol and Drug Abuse Patient Records regulations: The Federal rules restrict any use of the information to criminally investigate or prosecute any alcohol or drug abuse patient.[facility] Reason for Visit (unrecogniz ed section and content) Reason Comments Diplopia x the past year Blurred Vision OD Glare Driving in the dark Care Teams (unrecognized sec tion and content) Automatic Line Set Up Mechanic Relationship Specialty Start Date End Date Larry Granado PCP - General 05/17/06 FOR RECORDS PERTAINING TO PATIENTS WHO ARE OR HAVE BEEN ENROLLED IN A CHEMICAL DEPENDENCY/SUBSTANCEABUSE PROGRAM, SOME INFORMATION MAY BE OMITTED. This clinical summary was aggregated from multiple sources. Caution should be exercised in using it in the provision of clinical care. This summary normalizes information from multiple sources, and as a consequence, information in this document may materially change the coding, format and clinical context of patient data. In addition, data may be omitted in some cases. CLINICAL DECISIONS SHOULD BE BASED ON THE PRIMARY CLINICAL RECORDS. [facility]. provides no warranty or guarantee of the accuracy or completeness of information in this document.
--- NOTE | 2023-04-12 17:16 | PM.STRESS ---
Stress Test Stress Test Procedure: Exercise treadmill stress test General Information: Reason for Stress Test: Dyspnea Cardiac History and Risk Factors: Former smoker, father had IA Resting 12 - Lead Electrocardiogram: Rate & rhythm: Normal sinus at a rate of 75. [place]: Normal T-waves: Inverted in III ST-segments: Normal orientation Stress Test: Protocol: Phani protocol was followed. Exercise capacity: Fair exercise capacity. Total exercise time of 4minutes 12 seconds reached Phani stage 2 at 2.5MPH, 12% grade, & 7 METs. Blood pressure: Initial: 144/82, Maximum: 188/106, Recovery: 154/100 Rate & rhythm: Patient remained in sinus rhythm during the exercise and recovery portions of the study.? The maximum heart rate was 141, which was 88% of the maximum predicted heart rate 159. ST-segments & T-waves: During recovery, there was 0.5mm ST depression leading to ST downsloping in aVF, 0.5mm ST depression in II, and prominent ST downsloping in III. Patient response/symptoms: Patient complained of dyspnea and dizziness during exertion, which were reproducible to her chief complaint. Interpretation: Abnormal exercise stress test based on ST segment changes noted in the inferior leads. Reproducible dyspnea on exertion. [place]verria Treadmill Score is 1.7 which is a moderate risk. Clinical correlation required.
== END 2023-04-12 08:55 | disposition home or self-care (01) ==
LOC: CARD 08:54
PROVIDERS: PCP Family Medicine; Visit Provider Family Medicine
DX: R06.09 Other forms of dyspnea (principal)
CPT/HCPCS: 93017

== ENCOUNTER 2023-11-16 19:14 | Emergency (ER) | payer MEDICARE, SELFPAY ==
[2023-11-16 19:18] VITALS: BP 172/94; PULSE 62; TEMP 36.6; O2SAT 98; BMI 39.4
--- NOTE | 2023-11-16 19:23 | PC.NURSE ---
Complains of bladder pain for past two days and right sided flank pain that started today.
--- NOTE | 2023-11-16 19:36 | ED_ITS ---
Documented by User: DALLIN Ardon 11/22/23 12:57 HPI HPI - General Adult General Chief complaint: Urogenital-Female Stated complaint: Back Pain Time Seen by Provider: 11/16/23 19:26 Source: patient Mode of arrival: walk-in Limitations: no limitations History of Present Illness HPI narrative: 63-year-old female presents with complaint of bladder spasms, urinary frequency that started on Tuesday. Yesterday, started having burning with urination. Today, has developed some right lower back, flank discomfort. She also states she was little confused today and that she had trouble remembering her son's name. History of urinary tract infections in the past. Denies any history of kidney stones. + Nausea. Denies fever, chills, vomiting, diarrhea, hematuria. Quality:?As above Severity:? moderate Timing:?3 days, worsening Context: Normal setting and activity? Modifying factors:?Worse with urination Associated symptoms: As Related Data Home Medications ?Medication ?Instructions ?Recorded ?Confirmed albuterol sulfate 90 mcg/actuation 2 inh inhalation Q4H PRN shortness 11/16/23 11/16/23 aerosol inhaler of breath or wheezing amlodipine 5 mg tablet 5 mg PO DAILY 11/16/23 11/16/23 budesonide 3 mg 9 mg PO DAILY 11/16/23 11/16/23 capsule,delayed,extended release clopidogrel 75 mg tablet 75 mg PO DAILY 11/16/23 11/16/23 cyproheptadine 4 mg tablet mg 11/16/23 escitalopram oxalate 20 mg tablet 20 mg PO DAILY 11/16/23 11/16/23 hydrochlorothiazide 25 mg tablet 25 mg PO DAILY 11/16/23 11/16/23 metoprolol succinate 25 mg 25 mg PO DAILY 11/16/23 11/16/23 tablet,extended release 24 hr oxybutynin chloride 10 mg 10 mg PO DAILY 11/16/23 11/16/23 tablet,extended release 24 hr pravastatin 40 mg tablet 40 mg PO DAILY 11/16/23 11/16/23 Allergies Allergy/AdvReac Type Severity Reaction Status Date / Time aspirin Allergy Severe Anaphylaxis Verified 11/16/23 19:22 NSAIDS (Non-Steroidal AdvReac Severe Vomiting Verified 11/16/23 19:22 Anti-Inflamma Opioid HPI Opioid Management Most Recent Opioid Data: No Data to Display Review of Systems ROS Constitutional Denies: fever, chills or fatigue Cardiovascular Denies: chest pain Respiratory Denies: shortness of breath Gastrointestinal Reports: abdominal pain and nausea; Denies: vomiting or diarrhea Genitourinary Reports: painful urination, urinary frequency, urinary urgency and pelvic pain; Denies: blood in urine Musculoskeletal Reports: back pain; Denies: joint pain Neurological Denies: headache Endocrine Reports: fatigue Exam Constitutional Vital Signs, click to edit/add: Last Vital Signs Temp 97.9 F 11/16/23 19:18 Pulse 62 11/16/23 19:18 Resp 16 11/16/23 19:18 BP 172/94 H 11/16/23 19:18 Pulse Ox 98 11/16/23 19:18 O2 Del Method Room Air 11/16/23 19:18 Common normals: no apparent distress, oriented x3 and alert HENMT Common normals: normocephalic, head/scalp atraumatic and external nose normal Head and scalp: normocephalic and atraumatic Nose: external nose normal Respiratory Common normals: normal respiratory effort and clear to auscultation bilaterally Auscultation: clear to auscultation bilaterally Cardio Common normals: regular rate, regular rhythm and no murmurs Rate: regular rate Rhythm: regular rhythm GI Common normals: soft to palpation and non-tender Inspection: normal to inspection Palpation: soft Common normals: no CVA tenderness Extremity Common normals: normal to inspection Neuro Common normals: oriented x3, no focal motor deficits, no sensory deficits noted and gait normal Sensorium/orientation: alert Psych Common normals: thought process normal, cooperative and affect normal Thought process: normal thought process Course Vital Signs Vital signs: Vital Signs Temperature 97.9 F 11/16/23 19:18 Pulse Rate 62 11/16/23 19:18 Respiratory Rate 16 11/16/23 19:18 Blood Pressure 172/94 H 11/16/23 19:18 Pulse Oximetry 98 11/16/23 19:18 Oxygen Delivery Method Room Air 11/16/23 19:18 Temperature 97.9 F 11/16/23 19:18 Pulse Rate 62 11/16/23 19:18 Respiratory Rate 16 11/16/23 19:18 Blood Pressure 172/94 H 11/16/23 19:18 Pulse Oximetry 98 11/16/23 19:18 Oxygen Delivery Method Room Air 11/16/23 19:18 Medical Decision Making MDM Narrative Medical decision making narrative: This is a pleasant 63-year-old female who presents to the emergency department with complaint of bladder spasms, urinary frequency, dysuria, suprapubic discomfort, right flank, lower back pain since this past Tuesday. History of urinary tract infections in the past. Has had associated nausea. Denies fever, chills, vomiting, hematuria, diarrhea. On arrival afebrile, vital stable. On exam, nontoxic, well-appearing patient in no distress. Heart regular rate and rhythm. Lung sounds clear and equal bilaterally. Abdomen soft, nontender. No CVA tenderness. Labs reveal white blood cell count of 11.9. No anemia, thrombocytopenia, electrolyte imbalance, renal impairment. LFTs unremarkable. Urinalysis shows some concern for infection with leukocyte Estrace, 10?20 white blood cells, large bacteria. Urine culture was sent. Patient was given dose of Keflex Favor acute urinary tract infection [] less likely [] Disposition ? The patient was discharged. Plan: Patient will be discharged to home. Condition at time of disposition: stable ? Advised to follow up with primary provider. Advised to return for any worsening and/or development of new, concerning signs or symptoms PLEASE NOTE: Portions of the medical record may have been produced using electronic bread panner and may contain errors with respect to translation of words which may not have been identified prior to finalization of the chart. Lab Data Labs: Lab Results 11/16/23 11/16/23 Range/Units 20:00 20:05 WBC 11.9 H (4.0-11.0) 10^3/uL RBC 4.89 (4.20-5.40) 10^6/uL Hgb 14.2 (12.0-16.0) g/dL Hct 42.3 (36.0-48.0) % MCV 86.5 (81.0-99.0) fL MCH 29.0 (26.7-34.0) pg MCHC 33.6 (29.9-35.2) g/dL RDW 12.9 (11.0-15.0) % Plt Count 332 (150-450) 10^3/uL MPV 10.1 (9.5-13.5) fL Neut % (Auto) 65.0 (43.0-75.0) % Lymph % (Auto) 25.5 (20.5-60.0) % Ralls % (Auto) 8.1 (1.7-12.0) % Eos % (Auto) 0.5 L (0.9-7.0) % Baso % (Auto) 0.6 (0.2-2.0) % Neut # (Auto) 7.8 H (1.4-6.5) 10^3/uL Lymph # (Auto) 3.0 (1.2-3.8) 10^3/uL Ralls # (Auto) 1.0 H (0.3-0.8) 10^3/uL Eos # (Auto) 0.1 (0.0-0.7) 10^3/uL Baso # (Auto) 0.1 (0.0-0.1) 10^3/uL Abs Immat Gran (auto) 0.04 H (0.00-0.03) 10^3/uL Imm/Tot Granulo (auto) 0.3 (0.0-0.5) % Sodium 136 (136-145) mmol/L Potassium 3.4 L (3.5-5.1) mmol/L Chloride 102 (98-107) mmol/L Carbon Dioxide 29.1 (21.0-32.0) mmol/L Anion Gap 8.3 BUN 16.0 (7.0-18.0) mg/dL Creatinine 0.70 (0.55-1.02) mg/dL Est GFR ( Amer) >60 (>=60) Est GFR (Non-Af Amer) >60 (>=60) BUN/Creatinine Ratio 22.9 Glucose 104 (74-106) mg/dL Calcium 8.9 (8.5-10.1) mg/dL Total Bilirubin 0.5 (0.2-1.0) mg/dL AST 11 L (15-37) U/L ALT 23 (14-59) U/L Alkaline Phosphatase 96 (46-116) U/L Total Protein 7.0 (6.4-8.2) g/dL Albumin 3.3 L (3.4-5.0) g/dL Globulin 3.7 g/dL Albumin/Globulin Ratio 0.9 Urine Color Lt. yellow (YELLOW) Urine Clarity Clear (CLEAR) Urine pH 6.5 (5.0-9.0) Ur Specific [place] 1.010 (1.005-1.025) Urine Protein Negative (NEG/TRACE) mg/dL Urine Glucose (UA) Negative (NEGATIVE) mg/dL Urine Ketones Negative (NEGATIVE) mg/dL Urine Occult Blood Trace-i (NEGATIVE) Urine Nitrite Negative (NEGATIVE) Urine Bilirubin Negative (NEGATIVE) Urine Urobilinogen 0.2 (0.2-1.0) EU/dL Ur Leukocyte Esterase Moderate A (NEGATIVE) Urine RBC 0-2 (0-2) #/HPF Urine WBC 10-20 A (NONE SEEN) #/HPF Ur Squamous Epith Cells Few A (NONE/RARE) #/LPF Ur Transition Epith Cell Few A (NONE SEEN) #/LPF Urine Crystals None seen (None Seen) #/HPF Urine Bacteria Large A (NONE SEEN) #/HPF Urine Casts None seen (NONE SEEN) #/LPF Ur Culture Indicated? Yes Discharge Plan Discharge Stand Alone Forms: Portal Instructions Chief Complaint: Urogenital-Female Clinical Impression: Urinary tract infection Patient Disposition: Home, Self-Care Time of Disposition Decision: 22:01 Condition: Good Prescriptions / Home Meds: No Action albuterol sulfate 90 mcg/actuation HFA aerosol inhaler 2 inh inhalation Q4H PRN (Reason: shortness of breath or wheezing) amlodipine 5 mg tablet 5 mg PO DAILY budesonide 3 mg capsule,delayed,extend.release 9 mg PO DAILY clopidogrel 75 mg tablet 75 mg PO DAILY cyproheptadine 4 mg tablet escitalopram oxalate 20 mg tablet 20 mg PO DAILY hydrochlorothiazide 25 mg tablet 25 mg PO DAILY metoprolol succinate 25 mg tablet extended release 24 hr 25 mg PO DAILY oxybutynin chloride 10 mg tablet extended release 24hr 10 mg PO DAILY pravastatin 40 mg tablet 40 mg PO DAILY Print Language: Icelandic Instructions: Urinary Tract Infection in Women (DC) Referrals: GRACE SIGALA [Primary Care Provider] - 1 week Discharge Date/Time: 11/16/23 22:54 Documented by User: Blanka Armenta MD 11/22/23 19:32 HPI HPI - General Adult General Chief complaint: Urogenital-Female Stated complaint: Back Pain Time Seen by Provider: 11/16/23 19:26 Related Data Home Medications ?Medication ?Instructions ?Recorded ?Confirmed albuterol sulfate 90 mcg/actuation 2 inh inhalation Q4H PRN shortness 11/16/23 11/16/23 aerosol inhaler of breath or wheezing amlodipine 5 mg tablet 5 mg PO DAILY 11/16/23 11/16/23 budesonide 3 mg 9 mg PO DAILY 11/16/23 11/16/23 capsule,delayed,extended release clopidogrel 75 mg tablet 75 mg PO DAILY 11/16/23 11/16/23 cyproheptadine 4 mg tablet mg 11/16/23 escitalopram oxalate 20 mg tablet 20 mg PO DAILY 11/16/23 11/16/23 hydrochlorothiazide 25 mg tablet 25 mg PO DAILY 11/16/23 11/16/23 metoprolol succinate 25 mg 25 mg PO DAILY 11/16/23 11/16/23 tablet,extended release 24 hr oxybutynin chloride 10 mg 10 mg PO DAILY 11/16/23 11/16/23 tablet,extended release 24 hr pravastatin 40 mg tablet 40 mg PO DAILY 11/16/23 11/16/23 Allergies Allergy/AdvReac Type Severity Reaction Status Date / Time aspirin Allergy Severe Anaphylaxis Verified 11/16/23 19:22 NSAIDS (Non-Steroidal AdvReac Severe Vomiting Verified 11/16/23 19:22 Anti-Inflamma Opioid HPI Opioid Management Most Recent Opioid Data: No Data to Display Exam Constitutional Vital Signs, click to edit/add: Last Vital Signs Temp 97.9 F 11/16/23 19:18 Pulse 62 11/16/23 19:18 Resp 16 11/16/23 19:18 BP 172/94 H 11/16/23 19:18 Pulse Ox 98 11/16/23 19:18 O2 Del Method Room Air 11/16/23 19:18 Course Vital Signs Vital signs: Vital Signs Temperature 97.9 F 11/16/23 19:18 Pulse Rate 62 11/16/23 19:18 Respiratory Rate 16 11/16/23 19:18 Blood Pressure 172/94 H 11/16/23 19:18 Pulse Oximetry 98 11/16/23 19:18 Oxygen Delivery Method Room Air 11/16/23 19:18 Temperature 97.9 F 11/16/23 19:18 Pulse Rate 62 11/16/23 19:18 Respiratory Rate 16 11/16/23 19:18 Blood Pressure 172/94 H 11/16/23 19:18 Pulse Oximetry 98 11/16/23 19:18 Oxygen Delivery Method Room Air 11/16/23 19:18 Medical Decision Making [facility] Narrative Medical decision making narrative: This is a pleasant 63-year-old female who presents to the emergency department with complaint of bladder spasms, urinary frequency, dysuria, suprapubic discomfort, right flank, lower back pain since this past Tuesday. History of urinary tract infections in the past. Has had associated nausea. Denies fever, chills, vomiting, hematuria, diarrhea. On arrival afebrile, vital stable. On exam, nontoxic, well-appearing patient in no distress. Heart regular rate and rhythm. Lung sounds clear and equal bilaterally. Abdomen soft, nontender. No CVA tenderness. Labs reveal white blood cell count of 11.9. No anemia, thrombocytopenia, electrolyte imbalance, renal impairment. LFTs unremarkable. Urinalysis shows some concern for infection with leukocyte Estrace, 10?20 white blood cells, large bacteria. Urine culture was sent. Patient was given dose of Keflex Favor acute urinary tract infection [] less likely [] Disposition ? The patient was discharged. Plan: Patient will be discharged to home. Condition at time of disposition: stable ? Advised to follow up with primary provider. Advised to return for any worsening and/or development of new, concerning signs or symptoms PLEASE NOTE: Portions of the medical record may have been produced using electronic bread panner and may contain errors with respect to translation of words which may not have been identified prior to finalization of the chart. This patient was seen and evaluated in conjunction with the physician faculty i on call medical assistant. Please refer to full H&P. She presents for evaluation of flank pain with urinary frequency urgency dysuria and bladder spasms. She has not been febrile. She is not toxic in appearance. She is tolerating liquids without difficulty. Routine labs are reviewed. Her white count is minimally elevated at 11.9. Electrolytes and kidney function are normal. CT scan of the abdomen pelvis which is included in the body of this report does not show any acute findings including kidney stones or pyelonephritis. The results of the CT scan was discussed with the patient and she was given a copy for her records. She states that Cipro typically treats her urinary tract infections and she was given a dose of Cipro despite having already been given a dose of Keflex. She was also given a dose of Pyridium for her bladder spasms. She will be discharged home with a prescription for Cipro to use for the next 7 days. She was instructed to return to the emergency department for fever, worsening flank pain, inability to tolerate her medications or any concerns. Medical Records Medical records narrative: [place] [address] CT Scan Report Signed Patient: PRASANNA RIVER MR#: [id number] : 1960 Acct:[id number] Age/Sex: 63 / F ADM Date: 11/16/23 Loc: ER Attending Dr: Ordering Physician: Irving Estevez Date of Service: 11/16/23 Procedure(s): CT abdomen pelvis wo con Accession Number(s): [id number] cc: GRACE SIGALA ~ [facility] [place] [id number] Patient Name: PRASANNA RIVER MRN: [id number] date: 1960 Sex: F Assigned Patient Location: ER Current Patient Location: ER Accession/Order Number: [id number] Exam Date: 11/16/2023 21:00 Report Date: 11/16/2023 21:38 At the request of: IRVING ESTEVEZ Procedure: CT abdomen pelvis wo con EXAM: CT abdomen pelvis wo con HISTORY: flank pain TECHNIQUE: Helical CT images from the lung bases through the symphysis pubis were obtained with contrast. Coronal and sagittal reformatted images were generated at a workstation for further assessment. COMPARISON: None. FINDINGS: Lower chest: No consolidation. No pleural effusion or pneumothorax. Liver: No suspicious liver lesions. Portal veins appear patent. Gallbladder: Cholecystectomy changes. Spleen: Normal size. Pancreas: No suspicious pancreatic lesions. The pancreatic duct is not dilated. Adrenal glands: No adrenal nodules. Kidneys: No hydronephrosis or obstructing renal stones. Bladder / Pelvic organs: Unremarkable. Bowel: No bowel wall thickening. The appendix is not visualized. Lymph nodes: No retroperitoneal, mesenteric, or pelvic lymphadenopathy. Peritoneum / Retroperitoneum: No free fluid or air within the abdomen. Vessels: No infrarenal aortic aneurysm. Bones and soft tissues: No suspicious lesion in the bones. CT/CT abdomen pelvis wo con IMPRESSION: 1. No renal or ureteral stone. No acute intra-abdominal abnormality. 2. Small pericardial effusion. Electronically authenticated by: NADEEN BEY Date: 11/16/2023 21:38 Lab Data Labs: Lab Results 11/16/23 11/16/23 Range/Units 20:00 20:05 WBC 11.9 H (4.0-11.0) 10^3/uL RBC 4.89 (4.20-5.40) 10^6/uL Hgb 14.2 (12.0-16.0) g/dL Hct 42.3 (36.0-48.0) % MCV 86.5 (81.0-99.0) fL MCH 29.0 (26.7-34.0) pg MCHC 33.6 (29.9-35.2) g/dL RDW 12.9 (11.0-15.0) % Plt Count 332 (150-450) 10^3/uL MPV 10.1 (9.5-13.5) fL Neut % (Auto) 65.0 (43.0-75.0) % Lymph % (Auto) 25.5 (20.5-60.0) % Ralls % (Auto) 8.1 (1.7-12.0) % Eos % (Auto) 0.5 L (0.9-7.0) % Baso % (Auto) 0.6 (0.2-2.0) % Neut # (Auto) 7.8 H (1.4-6.5) 10^3/uL Lymph # (Auto) 3.0 (1.2-3.8) 10^3/uL Ralls # (Auto) 1.0 H (0.3-0.8) 10^3/uL Eos # (Auto) 0.1 (0.0-0.7) 10^3/uL Baso # (Auto) 0.1 (0.0-0.1) 10^3/uL Abs Immat Gran (auto) 0.04 H (0.00-0.03) 10^3/uL Imm/Tot Granulo (auto) 0.3 (0.0-0.5) % Sodium 136 (136-145) mmol/L Potassium 3.4 L (3.5-5.1) mmol/L Chloride 102 (98-107) mmol/L Carbon Dioxide 29.1 (21.0-32.0) mmol/L Anion Gap 8.3 BUN 16.0 (7.0-18.0) mg/dL Creatinine 0.70 (0.55-1.02) mg/dL Est GFR ( Amer) >60 (>=60) Est GFR (Non-Af Amer) >60 (>=60) BUN/Creatinine Ratio 22.9 Glucose 104 (74-106) mg/dL Calcium 8.9 (8.5-10.1) mg/dL Total Bilirubin 0.5 (0.2-1.0) mg/dL AST 11 L (15-37) U/L ALT 23 (14-59) U/L Alkaline Phosphatase 96 (46-116) U/L Total Protein 7.0 (6.4-8.2) g/dL Albumin 3.3 L (3.4-5.0) g/dL Globulin 3.7 g/dL Albumin/Globulin Ratio 0.9 Urine Color Lt. yellow (YELLOW) Urine Clarity Clear (CLEAR) Urine pH 6.5 (5.0-9.0) Ur Specific [place] 1.010 (1.005-1.025) Urine Protein Negative (NEG/TRACE) mg/dL Urine Glucose (UA) Negative (NEGATIVE) mg/dL Urine Ketones Negative (NEGATIVE) mg/dL Urine Occult Blood Trace-i (NEGATIVE) Urine Nitrite Negative (NEGATIVE) Urine Bilirubin Negative (NEGATIVE) Urine Urobilinogen 0.2 (0.2-1.0) EU/dL Ur Leukocyte Esterase Moderate A (NEGATIVE) Urine RBC 0-2 (0-2) #/HPF Urine WBC 10-20 A (NONE SEEN) #/HPF Ur Squamous Epith Cells Few A (NONE/RARE) #/LPF Ur Transition Epith Cell Few A (NONE SEEN) #/LPF Urine Crystals None seen (None Seen) #/HPF Urine Bacteria Large A (NONE SEEN) #/HPF Urine Casts None seen (NONE SEEN) #/LPF Ur Culture Indicated? Yes Discharge Plan Discharge Stand Alone Forms: Portal Instructions Chief Complaint: Urogenital-Female Clinical Impression: Urinary tract infection Patient Disposition: Home, Self-Care Time of Disposition Decision: 22:01 Condition: Good Prescriptions / Home Meds: No Action albuterol sulfate 90 mcg/actuation HFA aerosol inhaler 2 inh inhalation Q4H PRN (Reason: shortness of breath or wheezing) amlodipine 5 mg tablet 5 mg PO DAILY budesonide 3 mg capsule,delayed,extend.release 9 mg PO DAILY clopidogrel 75 mg tablet 75 mg PO DAILY cyproheptadine 4 mg tablet escitalopram oxalate 20 mg tablet 20 mg PO DAILY hydrochlorothiazide 25 mg tablet 25 mg PO DAILY metoprolol succinate 25 mg tablet extended release 24 hr 25 mg PO DAILY oxybutynin chloride 10 mg tablet extended release 24hr 10 mg PO DAILY pravastatin 40 mg tablet 40 mg PO DAILY Print Language: Icelandic Instructions: Urinary Tract Infection in Women (DC) Referrals: GRACE SIGALA [Primary Care Provider] - 1 week Discharge Date/Time: 11/16/23 22:54
--- OUTSIDE RECORDS SUMMARY | 2023-11-16 19:43 | XMS_ITS | CCD ---
Author Organization [facility] Inform ion [facility] Care Team Providers Care Telemarketing Sales Representative Name Role Phone ENRICO BELLO Admitting Unavailable ENRICO BELLO Attending Unavailable ENRICO BELLO Consulting Unavailable Larry Granado Primary Care Provider JODEE, DR NIELSEN Admitting Unavailable JODEE, DR NIELSEN Attending Unavailable ZAKIYA, DR EDWARDS Primary Care Unavailable DARIN, DR WOLFE Admitting Unavailable DARIN, DR WOLFE Attending Unavailable ZAKIYA, DR EDWARDS Primary Care Unavailable HENRIQUE MIGULE Consulting Unavailable DARIN, DR WOLFE Consulting Unavailable JODEE, DR NIELSEN Admitting Unavailable JODEE, DR NIELSEN Attending Unavailable ZAKIYA, DR EDWARDS Primary Care Unavailable DR Prashant HERRING Consulting Unavailable Drew Herring Unavailable Drew Herring Admitting UnavailConner Disla Primary Care Unavailable Drew Herring Attending UnavailAashish Lopez Attending Unavailable Aashish Singh Admitting Unavailable NO FAMILY, PHYSICIAN Primary Care Unavailable Sujata Felix Attending Unavailable Sujata Felix Admitting Unavailable Conner Sigala Primary Care Unavailable CONNER SIGALA Attending Unavailable CONNER SIGALA Referring Unavailable JOHAN STAPLETON Attending Unavailable CONNER SIGALA Attending Unavailable CONNER SIGALA Referring Unavailable SUJATA FELIX Attending Unavailable JOHAN STAPLETON Referring Unavailable JERMAINE VALLES Attending Unavailable CONNER SIGALA Referring Unavailable Allergies Allergy Classification Reported Allergen(s) Allergy Type Date of Onset Reaction(s) Facility (1 source) Aspirin Drug Allergy 05-17-19 [facility] Work Phone: (1 source) Ibuprofen Drug Allergy 05-17-19 [facility] Work Phone: (1 source) Acetaminophen / HYDROcodone Drug Allergy 12-11-19 14 [facility] Repository (1 source) Aspirin Drug Allergy 02-11-20 13 [facility] Repository (1 source) Ibuprofen Drug Allergy 02-11-20 13 [facility] Repository (1 source) Latex Drug allergy (disorder) 02-27-20 14 [facility] Repository (1 source) Meperidine Drug Allergy 02-11-20 13 [facility] Repository (1 source) NSAIDs Drug allergy (disorder) 02-27-20 14 [facility] Repository (2 sources) Sulfonamides (Antibiotic) Propensity to adverse reactions Unknown [facility] Other (2 sources) Narcotic Pains Meds Propensity to adverse reactions (Emiliano) 01/12/2012 SOB SOB [facility] Other (2 sources) Motrin, Aspirin Propensity to adverse reactions (Emiliano) 01/12/2012 Shock Shock [facility] Other (1 source) Aspirin Drug Allergy 05-31-19 18 [facility] Repository (1 source) Ibuprofen Drug Allergy 05-31-19 18 [facility] Repository (1 source) Meperidine Drug Allergy 05-31-19 18 [facility] Repository Medications Current Medications Medication Drug [...] 1 tablet by kat th once daily. clonazePAM 1 mg oral tablet [...] nasal spray (1 source) Corticosteroid Start: 08-22-19 22 take 1 spray(s) nasal route once daily fluticasone (FLONASE) 50 mcg/actuation nasal spray Use 1 [place] in each nostril once daily. 0 08/21/2021 Active Comment on above: Use 1 [place] in each nostril once daily. Methylcellulose (1 source) Citrucel Not-Jonnathan ing 24 hr metoprolol succinate 25 mg extended release oral tablet (4 sources) beta-Adrenergic Arlyn Start: 05-18-19 07 End: 11-11-19 22 TOPROL XL 25 MG [...] THERAPEUTIC MULTIVITAMIN TAB (1 source) Start: 05-18-19 07 THERAPEUTIC MULTIVITAMIN TAB Take one(1) tablet daily. [...] Results Test Name Value Interpretation Reference Range Facility BI MAMMOGRAM SCREENING TOMOS YNTHESIS BILATERALon 07-21-2023 BI MAMMOGRAM SCREENING TOMOSYNTHESIS BILATERAL This is a summary report. The complete report is available in the patient's medical record. If you cannot access the medical record, please contact the sending organization for a detailed fax or copy. BI MAMMOGRAM SCREENING TOMOSYNTHESIS BILATERAL:08/25/2023 12:55 PM CLINICAL HISTORY:screen. COMPARISONS: March 21, 2020. TECHNIQUE: Routine full field 3D breast tomosynthesis was performed bilaterally. CAD analysis was performed and used in the interpretation. FINDINGS: Scattered fibroglandular densities are noted with stable asymmetry. There are no developing masses, suspicious microcalcifications, or areas of architectural distortion identified on today's examination. There is no significant change when compared to the prior examinations identified, given differences in technique and positioning. IMPRESSION: BI-RADS 1- NEGATIVE. ROUTINE FOLLOW-UP MAMMOGRAPHY IS SUGGESTED IN ONE YEAR. DENSITY: Scattered fibroglandular densities. Board Certified Radiologists. Accredited by the ACR and FDA. MAMMOGRAPHY IS VERY IMPORTANT TO YOUR HEALTH. THE [place] [place] [employer]ET[employer] GUIDELINES RECOMMEND THAT WOMEN 40 YEARS OF AGE AND OLDER SHOULD HAVE A MAMMOGRAM EVERY YEAR. A REMINDER LETTER WILL BE SENT AT THE APPROPRIATE TIME. ELECTRONICALLY SIGNED BY: Ken Howard DO Normal Not Available XR CHEST 2 VIEWSon 3 XR CHEST [...] (U) No Growth 2 Days PERFORMED BY: [address] [place] [id number] PATHOLOGIST PERSONAL ATTENDANT PATEL LAWSON M.D. Normal [facility] Comment on above: Performed By: #### C UU #### [place] [id number] [facility] 09-02-2022 L --- Specimen: [id number] Received: 09/02/22 Status: MOLLY Rodrígueztsering Num: [id number] Spec Type: Surgical Subm Dr: Drew Herring MD Tissues: A Colon Biopsy (RANDOM COLON BX) Procedures: LUANA Dias/Roberto, Gross/Micro L4, CD3 Age/ Patient Sex Location Account Attending Physician Rosalba River 62/F [id number] Drew Herring MD SPEC NUM: [id number] RECD: 09/02/22 STATUS: MOLLY RE NUM: [id number] IOANA: 09/02/22- [facility] DR: Drew Herring MD ENTERED: 09/02/[address] [facility] DR: SPEC TYPE: Surgical DEPT: S ORDERED: Trichrome, HE/2, [...] submitted in one cassette labeled A1. Specimen: [id number] Received: 09/02/22 Status: MOLLY Re Num: [id number] Spec Type: Surgical Subm Dr: Drew Herring MD Tissues: A Colon Biopsy (RANDOM COLON BX) Procedures: Trichrome, HE/2, Gross/Micro L4, CD3 Patient: Rosalba River [id number] (Continued) Specimen: [id number] Received: 09/02/22 (Continued) Signed (signature on file) Sunita Copeland MD 09/03/22 1517 Specimen: [id number] Received: 09/02/22 Status: MOLLY Zepeda Num: [id number] Spec Type: Surgical Subm Dr: Drew Herring MD Tissues: A Colon Biopsy (RANDOM COLON BX) Procedures: Trichrome, HE/2, Gross/Micro L4, CD3 Patient: Rosalba River [id number] (Continued) Specimen: [id number] Received: 09/02/22 (Continued) Microscopic Description Two H E slides reviewed. The microscopic examination confirms the diagnosis. CPT Codes 33174, 75183, 19425 Specimen: [id number] Received: 09/02/22 Status: MOLLY Katelyn Num: [id number] Spec Type: Surgical Subm Dr: Drew Herring MD Tissues: A Colon Biopsy (RANDOM COLON BX) Procedures: Trichrome, HE/2, Gross/Micro L4, CD3 Patient: Rosalba River [id number] (Continued) Signed (signature on file) Sunita Copeland MD 09/03/22 1517 [facility] CBC AUTO DIFFon 08-19-2022 BASO # 0.1 103/ul Normal 0.0-0.1 [facility] Comment on above: Performed By: #### C BC #### [facility] [address] [place] [address] Dr. Jenny Shin Basophils/100 WBC (Bld) 0.8 % Normal 0.2-2.0 [facility] Comment on above: Performed By: #### C BC #### [facility] [address] [place] [address] Dr. Jenny Shin EO # 0.2 103/ul Normal 0.0-0.7 [facility] Comment on above: Performed By: #### C BC #### [facility] [address] [place] [address] Dr. Jenny Shin Eosinophils/100 WBC (Bld) 2.2 % Normal 0.9-7.0 [facility] Comment on above: Performed By: #### C BC #### [facility] [address] [place] [address] Dr. Jenny Shin Erythrocyte distribution width (RBC) [Ratio] 12.9 % Normal 11.0-15.0 [facility] Comment on above: Performed By: #### C BC #### [facility] [address] [place] [address] Dr. Jenny Shin Hematocrit (Bld) [Volume fraction] 43.0 % Normal 36.0-48.0 [facility] Comment on above: Performed By: #### C BC #### [facility] [address] [place] [address] Dr. Jenny Shin Hemoglobin (Bld) [Mass/Vol] 14.3 g/dL Normal 12.0-16.0 [facility] Comment on above: Performed By: #### C BC #### [facility] [address] [place] [address] Dr. Jenny Shin IG # 0.03 10e3/ul Normal 0.00-0.03 [facility] Comment on above: Performed By: #### C BC #### [facility] [address] [place] [address] Dr. Jenny Shin IG % 0.4 % Normal 0.0-0.5 [facility] Comment on above: Performed By: #### C BC #### [facility] [address] [place] [address] Dr. Jenny Shin LYMPH # 2.8 103/ul Normal 1.2-3.8 [facility] Comment on above: Performed By: #### C BC #### [facility] [address] [place] [address] Dr. Jenny Shin Lymphocytes/100 WBC (Bld) 35.7 % Normal 20.5-60.0 [facility] Comment on above: Performed By: #### C BC #### [facility] [address] [place] [address] Dr. Jenny Shin MANUAL DIFF REQ NO Normal [facility] Comment on above: Performed By: #### C BC #### [facility] [address] [place] [address] Dr. Jenny Shin MCH (RBC) [Entitic mass] 28.4 pg Normal 26.7-34.0 [facility] Comment on above: Performed By: #### C BC #### [facility] [address] [place] [address] Dr. Jenny Shin MCHC (RBC) [Mass/Vol] 33.3 g/dL Normal 29.9-35.2 [facility] Comment on above: Performed By: #### C BC #### [facility] [address] [place] [address] Dr. Jenny Shin MCV (RBC) [Entitic vol] 85.3 fL Normal 81.0-99.0 [facility] Comment on above: Performed By: #### C BC #### [facility] [address] [place] [address] Dr. Jenny Shin MONO # 0.6 103/ul Normal 0.3-0.8 [facility] Comment on above: Performed By: #### C BC #### [facility] [address] [place] [address] Dr. Jenny Shin Monocytes/100 WBC (Bld) 7.3 % Normal 1.7-12.0 [facility] Comment on above: Performed By: #### C BC #### [facility] [address] [place] [address] Dr. Jenny Shin NEUT # 4.1 103/ul Normal 1.4-6.5 [facility] Comment on above: Performed By: #### C BC #### [facility] [address] [place] [address] Dr. Jenny Shin Neutrophils/100 WBC (Bld) 53.6 % Normal 43.0-75.0 [facility] Comment on above: Performed By: #### C BC #### [facility] [address] [place] [address] Dr. Jenny Shin Platelet mean volume (Bld) [Entitic vol] 9.5 fL Normal 9.5-13.5 [facility] Comment on above: Performed By: #### C BC #### [facility] [address] [place] [address] Dr. Jenny Shin PLT 339 103/ul Normal 150-450 [facility] Comment on above: Performed By: #### C BC #### [facility] [address] [place] [address] Dr. Jenny Shin RBC 5.04 106/ul Normal 4.20-5.40 [facility] Comment on above: Performed By: #### C BC #### [facility] [address] [place] [address] [address] Jenny Shin WBC 7.7 103/ul Normal 4.0-11.0 [facility] Comment on above: Performed By: #### C BC #### [facility] [address] [place] [address] Dr. Jenny Shin CRPon 08-19-2022 CRP [Mass/Vol] mg/L Normal <=1.0 [facility] Comment on above: Performed By: #### C RP, CMP #### [facility] [address] [place] [address] Dr. Jenny Shin PROF 14(COMP METB)on 023 Albumin [Mass/Vol] 3.7 g/dL Normal 3.4-5.0 [facility] Comment on above: Performed By: #### C RP, CMP #### [facility] [address] [place] [address] Dr. Jenny Shin Albumin/Globulin [Mass ratio] 0.9 {ratio} Normal [facility] Comment on above: Performed By: #### C RP, CMP #### [facility] [address] [place] [address] Dr. Jenny Shni ALP [Catalytic activity/Vol] 99 U/L Normal 46-116 [facility] Comment on above: Performed By: #### C RP, CMP #### [facility] [address] [place] [address] Dr. Jenny Shin ALT [Catalytic activity/Vol] 24 U/L Normal 14-59 [facility] Comment on above: Performed By: #### C RP, CMP #### [facility] [address] [place] [address] Dr. Jenny Shin Anion gap [Moles/Vol] 12.3 mmol/L Normal [facility] Comment on above: Performed By: #### C RP, CMP #### [facility] [address] [place] [address] Dr. Jenny Shin AST [Catalytic activity/Vol] 25 U/L Normal 15-37 [facility] Comment on above: Performed By: #### C RP, CMP #### [facility] [address] [place] [address] Dr. Jenny Shin Bilirubin [Mass/Vol] 0.5 mg/dL Normal 0.2-1.0 [facility] Comment on above: Performed By: #### C RP, CMP #### [facility] [address] [place] [address] Dr. Jenny Shin Calcium [Mass/Vol] 9.0 mg/dL Normal 8.5-10.1 [facility] Comment on above: Performed By: #### C RP, CMP #### [facility] [address] [place] [address] Dr. Jenny Shin Chloride [Moles/Vol] 105 mmol/L Normal 98-107 [facility] Comment on above: Performed By: #### C RP, CMP #### [facility] [address] [place] [address] Dr. Jenny Shin CO2 [Moles/Vol] 26.6 mmol/L Normal 21.0-32.0 [facility] Comment on above: Performed By: #### C RP, CMP #### [facility] [address] [place] [address] Dr. Jenny Shin Creatinine [Mass/Vol] 0.87 mg/dL Normal 0.55-1.02 [facility] Comment on above: Performed By: #### C RP, CMP #### [facility] [address] [place] [address] Dr. Jenny Shin EGFR-AF SRI [place]ANKAN >60 Normal >=60 [facility] Comment on above: Performed By: #### C RP, CMP #### [facility] [address] [place] [address] Dr. Jenny Shin EGFR-NON AF SRI LANKAN >60 Normal >=60 [facility] Comment on above: Performed By: #### C RP, CMP #### [facility] [address] [place] [address] Dr. Jenny Shin Globulin (S) [Mass/Vol] 3.9 g/dL Normal [facility] Comment on above: Performed By: #### C RP, CMP #### [facility] [address] [place] [address] [address] Jenny Shin Glucose [Mass/Vol] 105 mg/dL Normal 74-106 [facility] Comment on above: Performed By: #### C RP, CMP #### [facility] [address] [place] [address] [address] Jenny Shni Potassium [Moles/Vol] 2.9 mmol/L Critically low 3.5-5.1 [facility] Comment on above: Performed By: #### C RP, CMP #### [facility] [address] [address] [address] Jenny Shin Protein [Mass/Vol] 7.6 g/dL Normal 6.4-8.2 [facility] Comment on above: Performed By: #### C RP, CMP #### [facility] [address] [address] [address] Jenny Shin Sodium [Moles/Vol] 141 mmol/L Normal 136-145 [facility] Comment on above: Performed By: #### C RP, CMP #### [facility] [address] [place] [address] [address] Jenny Shin Urea nitrogen [Mass/Vol] 10.0 mg/dL Normal 7.0-18.0 [facility] Comment on above: Performed By: #### C RP, CMP #### [facility] [address] [address] [address] Jenny Shin Urea nitrogen/Creatinine [Mass ratio] 11.5 mg/mg Normal [facility] Comment on above: Performed By: #### C RP, CMP #### [facility] [address] [place] [address] Dr. Jenny Shin SED RATE [facility] 2022 SED RATE 17 mm/hr Normal <=30 [facility] Comment on above: Performed By: #### S EDR #### [facility] [address] [address] [address] Jenny Shin MG MAMM SCREEN 3D JELENA CADon 07-06-2022 MG MAMM SCREEN 3D JELENA CAD Patient: ROSALBA RIVER Exam Date: 07/06/2022 : 1960 Gender:F Ordering : DR YANETH WEBSTER Admission #: [id number] Family : Order #: [id number] CLICK HERE TO VIEW EXAM RADIOLOGY REPORT PROCEDURE: MAMMOGRAM SCREENING 3D BILATERAL CAD COMPARISON: MG MAMM SCREEN 3D JELENA CAD, 03/21/2020. INDICATIONS: Screening mammography Calculator Name NCI Breast Cancer Risk Assessment Tool 5 Year Breast Cancer Risk Not Reported. Lifetime Breast Cancer Risk Not Reported. Personal Breast Cancer No Personal Ovarian Cancer No Treatments None Family Cancers None LOCATION: [facility] BREAST COMPOSITION: Scattered areas fibroglandular density. [...] Miguel M.D. on 07/07/2022 at 07:43 Normal [facility] XR DEXA BONE DENSITYon 07-06 XR DEXA [...] by: HENRIQUE MIGUEL Date: 2022-07-06 21:49 Normal [facility] XR lumbar spine 6V w bending on 04-30-2022 XR lumbar spine 6V w bending [facility] [address] XRay Report Signed Patient: Rosalba Mcneill MR#: [id number] : 1960 Acct:[id number] Age/Sex: 62 / F ADM Date: 04/30/22 Loc: ICXD Room: Type: [facility] Attending Dr: Sujata Felix MD Copies to: Sujata Felix MD Ordering Provider: Sujata Felix MD Date of Service: 04/30/22 XR/XR [...] Melly Navarro M.D.04/30/2022 4:46 PM Dictation Location: [place] [address] Transcribed By: [facility] 04/30/22 1646 Dictated By: Melly Navarro MD 04/30/22 1639 Signed By: 04/30/22 1646 Normal [facility] CNCOon 03-11-2021 CNCO Letter Text Normal [facility] 01-09-2021 CNPN Telephone (OPHTMN) ROSALBA MCNEILL ([id number]) 1960 F Date Time Provider Department 01/09/21 SHAHZAD PIZARRO During your visit today, we recorded the following information about you: Candie Estevez 01/09/2021 3:47 PM Signed Received outside medical records for the following patient. Records have been sent to [facility] for Epic entry. Patient is scheduled to be seen by Dr. Pizarro 05/05/2021. Allergies As of Date: 01/09/2021 Noted Allergy Reaction ASPIRIN 05/17/2006 2 - Rash IBUPROFEN 05/17/2006 2 - Rash Date Reviewed: 11/16/2006 Reviewed by: Mariam Manning - Reviewed Reason for Visit: Received Outside Medical Records [3576] Prescriptions as of 01/09/2021 - risperidone (RISPERDAL) 0.25 mg ORAL Tab Take one(1) tablet two(2) times daily. - alprazolam (XANAX) 0.5 mg ORAL Tab Take one(1) tablet three(3) times daily. - TOPROL XL 25 MG 24 HR TAB Take one(1) tablet daily. - LOESTRIN 1/20 (21) 1 MG-20 MCG TAB Take one(1) tablet daily. - THERAPEUTIC MULTIVITAMIN TAB Take one(1) tablet daily. Problem List As Of Date: 01/09/2021 (None) Encounter Status:Closed by CANDIE ESTEVEZ on 01/09/21 Normal [facility] [address] HEAD W/O CONTRAST [id number] 10-09-2018 CT HEAD W/O CONTRAST [address] CT SCAN OF THE HEAD WITHOUT CONTRAST CLINICAL HISTORY: REASON FOR STUDY: Cerebrovascular accident TECHNIQUE: Helically acquired axial CT images were obtained through the head without contrast. FINDINGS: The brain appears morphologically normal. Ross and white matter are normal in attenuation. No intra-axial or extra-axial mass or abnormal fluid collection is seen. IMPRESSION: Negative CT scan of the brain. Normal [facility] Comment on above: Order Comment: REASO N FOR STUDY: Cerebrovascular accident No Panel Information [facility] Vital Signs Date Time Vital Sign Value Performing Clinician Facility 03-10-2023 14:45-0500 Body height 162.56 cm Drew Nima Other [facility] Other 03-10-2023 14:45-0500 Body mass index (BMI) [Ratio] 39.13 kg/m2 Drew Herring Other [facility] Other 03-10-2023 14:45-0500 Body weight 103.42 kg Drew Herring Other [facility] Other 03-10-2023 14:45-0500 Diastolic blood pressure 93 mm[Hg] Drew Herring Other [facility] Other 03-10-2023 14:45-0500 Systolic blood pressure 168 mm[Hg] Drew Nima Other [facility] Other 09-07-2022 14:45-0400 Body height 162.56 cm Drew Stephensack Other [facility] Other 09-07-2022 14:45-0400 Body mass index (BMI) [Ratio] 36.9 kg/m2 Drew Nima Other [facility] Other 09-07-2022 14:45-0400 Body weight 97.52 kg Drew Herring Other [facility] Other Encounters Encounter Date Encounter Type Care Provider Facility Start: 08-25-2023 End: 08-26-2023 ambulatory JOHAN STAPLETON Not Available Start: 08-18-2023 End: 08-18-2023 ambulatory SUJATA FELIX Not Available Start: 07-21-2023 End: 07-21-2023 ambulatory JOHAN STAPLETON Not Available Start: 03-17-2023 End: 03-17-2023 ambulatory JERMAINE VALLES Not Available Start: 03-12-2023 End: 03-13-2023 ambulatory CONNER SIGALA Not Available Start: 03-10-2023 End: 03-10-2023 ambulatory Drew Herring Other [facility] Other Start: 03-10-2023 Office outpatient visit 15 minutes Drew Herring [facility] Start: 09-09-2022 End: 09-09-2022 ambulatory Aashish Singh Facility:[facility] Start: 09-07-2022 End: 09-07-2022 ambulatory Drew Herring Other [facility] Other Start: 09-07-2022 Office outpatient visit 15 minutes Drew Herring [facility] G[facility] Start: 09-02-2022 End: 09-02-2022 ambulatory Drew Herring Facility:[facility] Start: 08-19-2022 End: 08-20-[address] DOCTOR ELLSWORTH Facility:[facility] Start: 07-06-2022 End: 07-07-[address] YANETH WEBSTER Facility:[facility] Start: 05-27-2022 End: 07-20-[address] DOCTOR ELLSWORTH Facility:[facility] Start: 04-30-2022 End: 04-30-2022 ambulatory Sujata Felix Facility:[facility] Start: 11-10-2021 End: 11-10-2021 Patient encounter procedure Shahzad Pizarro DO Work Phone: Ophthalmology Comment on above: Visual field defect (Primary Dx) Start: 10-09-2018 End: 10-09-2018 Patient encounter procedure ENRICO BELLO Facility:[facility] Date Procedure Procedure Detail Performing Clinician Start: 11-10-2021 End: 11-10-2021 Visual field xm uni/bi w/interp extended exam Shahzad Pizarro DO Work Phone: Start: 03-21-2020 Mammography Shahzad bear DO Work Phone: Plan of Treatment Date Care Activity Detail Author Start: 12-10-2021 Influenza vaccination INFLUENZA (#1) [facility] Start: 03-21-2021 Mammography MAMMOGRAM [facility] Start: 12-11-2020 COVID-19 VACCINE (3 - Booster) COVID-19 VACCINE (3 - Booster) [facility] Start: 2012 SHINGRIX VACCINE (1 of 2) SHINGRIX V ACCINE (1 of 2) [facility] Start: 02-01-2012 LIPID SCREEN LIPID SCREEN [facility] Start: 01-31-2010 DIABETES SCREEN DIABETES SCREEN [facility] Start: 2007 COLOGUARD (FIT-DNA) COLOGUARD (FIT-D NA) [facility] Start: 2007 Colonoscopy COLONOSCOPY [facility] Start: 2007 COLORECTAL CANCER SCREENING COLORECTAL CANCER SCREENING [facility] Start: [address] COLONOGRAPHY [facility] Start: 2007 FECAL OCCULT BLOOD FECAL OCCULT BLOO D [facility] Start: 2007 SIGMOIDOSCOPY SIGMOIDOSCOPY [facility] Start: 1992 HPV TESTING HPV TESTING [facility] Start: 1983 PAP TESTING PAP TESTING [facility] Start: 1981 Urine microalbumin profile DTAP,TDAP ,TD (1 - Tdap) [facility] Start: 1980 HEPATITIS C SCREENING HEPATITIS C SC REENING [facility] Start: 1980 HIV SCREENING HIV SCREENING [facility] Start: 1974 Adult depression scr eening assessment DEPRESSION SCREENING [facility] Immunizations Immunization Date Immunization Notes Care Provider Fartun jalloh 07-11-2020 COVID-19 vaccine, fu ll dose (MODERNA) Shahzad Pizarro DO Work Phone: [facility] 07-27-2016 tetanus toxoid, reduced diphtheria toxoid, and acellular pertussis vaccine, adsorbed Drew Herring Other [email or web address] Other Payers Date Payer Category Payer Medicare [id number] 2022 Self-pay 2022 Unknown [id number] 2021 Medicare DEVOTED MEDICARE DEVOTED HEALTH [id number] 2021-Present [phone] [address] [place] [id number] O [id number] 2020 Unknown [id number] 1960 Unknown [id number] [id number] 1960 Unknown [id number] 2.16.840.1.630344.3.579.2.593 1962 Unknown [id number] 2.16.840.1.792012.3.579.2.593 1962 Unknown [id number] 2.16.840.1.927625.3.579.2.1259 1962 Unknown [id number] 2.16.840.1.772459.3.579.2.1259 1962 Unknown [id number] 2.16.840.1.531588.3.579.2.1259 1962 Unknown [id number] 2.16.840.1.257191.3.579.2.1259 1962 Unknown [id number] 2.16.840.1.372740.3.579.2.1259 1962 Unknown [id number] 2.16.840.1.131275.3.579.2.1259 1960 Unknown [id number] 2.16.840.1.865485.3.579.2.1259 Medicare [id number] [id number] Unknown [id number] 2.16.840.1.732429.3.579.2.531 Unknown [id number] 2.16.840.1.878734.3.579.2.531 Unknown [id number] 2.16.840.1.211604.3.579.2.531 Social History Date Type Detail Facility Tobacco smoking status NHIS Ex-smoker [facility] Work Phone: History of tobacco use Cigarette Smoker [facility] Start: 11-10-2021 Alcohol intake 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 Start: 10-31-2021 End: 11-10-2021 Exposure to SARS-CoV-2 (event) Not sure [facility] Sex Assigned At Sex Assigned At Bir th [email or web address] Other Evaluation note 03-10-2023 Note Date & Type Note Facility 03-10-2023 Evaluation note Encounter Date Diagnosis Assessment Notes Feb, Microscopic colitis (ICD-10 - K52.89) PATIENT DOING WELL ON THE BUDESONIDE. WILL HAVE PATIENT STOP THE MEDICATION AFTER SHE HAS BEEN ON IT FOR ONE YEAR AND SEE HOW SHE DOES. [email or web address] Other Evaluation note 09-07-2022 Note Date & Type Note Facility 09-07-2022 Evaluation note Encounter Date Diagnosis Assessment Notes August, Diarrhea (ICD-10 - R19.7) August, Microscopic colitis (ICD-10 - K52.89) PATIENT IS IMPROVING ON PREDNISONE. SHE SHOULD ALSO CONTINUE ON HER PANTOPRAZOLE TO HELP KEEP INFLAMMATION UNDER CONTROL. START BUDESONIDE 3 MG 3 PO QAM FOR MAINTENANCE THERAPY. RETURN VISIT HERE IN SIX MONTHS [email or web address] Other Progress note 11-10-2021 Note Date & Type Note Facility 11-10-2021 Note HNO ID: [id number] Author: Shahzad Pizarro, DO Service: ? Author [...] Pizarro DO November 10, 2021 3:25 PM [facility] History of Present illness Narrative 11-10-2021 [...] 2021 3:25 PM documented in this encounter [facility] History general Narrative - Reported 04-11-2014 Note [...] History stroke 04/2014 Hospitalization History see above [email or web address] Other History general Narrative - Reported 04-11-2014 [...] History stroke 04/2014 Hospitalization History see above [email or web address] Other Evaluation note Note Date & Type Note Facility Evaluation note Diagnosis Visual field defect- Primary Visual field defect, unspecified documented in this encounter [facility] Summary Purpose Family History No Family History Records FoundNo Family History Records FoundNo Family History Records FoundNo Family History Records FoundNo Family History Records Found Advance Directives No Advanced Directives Records FoundNo Advanced Directives Records FoundNo Advanced Directives Records FoundNo Advanced Directives Records FoundNo Advanced Directives Records Found Additional Source Comments INFORMATION SOURCE (unrecogn ized section and content) DATE CREATED AUTHOR 10/19/2018 [facility] DATE CREATED AUTHOR AUTHOR'S ORGANIZ ATION 11/12/2021 [facility] DATE CREATED AUTHOR AUTHOR'S ORGANIZ ATION 08/23/2022 [facility] DATE CREATED AUTHOR AUTHOR'S ORGANIZ ATION 12/11/2022 [facility] DATE CREATED AUTHOR AUTHOR'S ORGANIZ ATION 09/02/2023 [facility] [employer] Source Comments (unrecognize d section and content) In the event this informatio n is protected by the Federal Confidentiality of Alcohol and Drug Abuse Patient Records regulations: The Federal rules restrict any use of the information to criminally investigate or prosecute any alcohol or drug abuse patient.[facility] Reason for Visit (unrecogniz ed section and content) Reason Comments Diplopia x the past year Blurred Vision OD Glare Driving in the dark Care Teams (unrecognized sec tion and content) 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 [facility] [facility]. provides no warranty or guarantee of the accuracy or completeness of information in this document.
[2023-11-16] MEDS: 0.9 % SODIUM CHLORIDE 1,000 ML 999 ML IV (20:03)
[2023-11-16 20:24] LABS: Basophils Absolute Auto 0.1 10^3/uL (0.0-0.1); Basophils Percent Auto 0.6 % (0.2-2.0); Eosinophils Absolute Auto 0.1 10^3/uL (0.0-0.7); Eosinophils Percent Auto 0.5 % (0.9-7.0); Hematocrit 42.3 % (36.0-48.0); Hemoglobin 14.2 g/dL (12.0-16.0); Immature Granulocytes Abs Auto 0.04 10^3/uL (0.00-0.03); Immature Granulocytes Pct Auto 0.3 % (0.0-0.5); Lymphocytes Percent Auto 25.5 % (20.5-60.0); Mean Corpuscular HGB Conc 33.6 g/dL (29.9-35.2); Mean Corpuscular Volume 86.5 fL (81.0-99.0); Mean Platelet Volume 10.1 fL (9.5-13.5); Monocytes Percent Auto 8.1 % (1.7-12.0); Neutrophils Absolute Auto 7.8 10^3/uL (1.4-6.5); Platelet Count 332 10^3/uL (150-450); Red Blood Count 4.89 10^6/uL (4.20-5.40); Red Cell Distribution Width 12.9 % (11.0-15.0); White Blood Count 11.9 10^3/uL (4.0-11.0)
[2023-11-16 20:25] LABS: Bilirubin Urine NEGATIVE (NEGATIVE); Blood Urine TRACE-I (NEGATIVE); Clarity Urine CLEAR (CLEAR); Color Urine LT. YELLOW (YELLOW); Glucose Urine UA NEGATIVE (NEGATIVE); Ketones Urine NEGATIVE (NEGATIVE); Leukocyte Esterase Urine MODERATE (NEGATIVE); Nitrite Urine NEGATIVE (NEGATIVE); Protein Urine NEGATIVE (NEG/TRACE); Urobilinogen Urine 0.2 EU/dL (0.2-1.0); pH Urine 6.5 (5.0-9.0)
[2023-11-16 20:35] LABS: Bacteria Urine LARGE #/HPF (NONE SEEN); RBC Urine 0-2 #/HPF (0-2)
[2023-11-16 20:36] LABS: Cast Seen? NONE SEEN #/LPF (NONE SEEN); Crystals Seen? None Seen #/HPF (None Seen); Squamous Epithelial Cell Urine FEW #/LPF (NONE/RARE); Transitional Epi Cells Urine FEW #/LPF (NONE SEEN); Urine Culture Indicated YES
[2023-11-16 20:40] LABS: Alanine Aminotransferase 23 U/L (14-59); Albumin Globulin Ratio 0.9; Albumin Level 3.3 g/dL (3.4-5.0); Alkaline Phosphatase 96 U/L (46-116); Anion Gap 8.3; Aspartate Amino Transferase 11 U/L (15-37); BUN Creatinine Ratio 22.9; Bilirubin Total 0.5 mg/dL (0.2-1.0); Calcium 8.9 mg/dL (8.5-10.1); Carbon Dioxide 29.1 mmol/L (21.0-32.0); Chloride 102 mmol/L (98-107); Estimated GFR (African America >60 (>=60); Estimated GFR (Non-African Ame >60 (>=60); Globulin 3.7 g/dL; Glucose 104 mg/dL (74-106); Potassium 3.4 mmol/L (3.5-5.1); Sodium 136 mmol/L (136-145)
--- NOTE | 2023-11-16 20:51 | CT_ITS ---
The [address] [address] Patient Name: PRASANNA RIVER MRN: [id number] date: 1960 Sex: F Assigned Patient Location: ER Current Patient Location: Accession/Order Number: [id number] Exam Date: 11/16/2023 21:00 Report Date: 11/16/2023 21:38 At the request of: CHIRAG ESTEVEZ Procedure: CT abdomen pelvis wo con EXAM: CT abdomen pelvis wo con HISTORY: flank pain TECHNIQUE: Helical CT images from the lung bases through the symphysis pubis were obtained with contrast. Coronal and sagittal reformatted images were generated at a workstation for further assessment. COMPARISON: None. FINDINGS: Lower chest: No consolidation. No pleural effusion or pneumothorax. Liver: No suspicious liver lesions. Portal veins appear patent. Gallbladder: Cholecystectomy changes. Spleen: Normal size. Pancreas: No suspicious pancreatic lesions. The pancreatic duct is not dilated. Adrenal glands: No adrenal nodules. Kidneys: No hydronephrosis or obstructing renal stones. Bladder / Pelvic organs: Unremarkable. Bowel: No bowel wall thickening. The appendix is not visualized. Lymph nodes: No retroperitoneal, mesenteric, or pelvic lymphadenopathy. Peritoneum / Retroperitoneum: No free fluid or air within the abdomen. Vessels: No infrarenal aortic aneurysm. Bones and soft tissues: No suspicious lesion in the bones. CT/CT abdomen pelvis wo con IMPRESSION: 1. No renal or ureteral stone. No acute intra-abdominal abnormality. 2. Small pericardial effusion. Electronically authenticated by: NADEEN BEY Date: 11/16/2023 21:38
[2023-11-16] MEDS: CEPHALEXIN 500 MG CAPSULE PO (21:27)
== END 2023-11-16 22:54 | disposition home or self-care (01) ==
PROVIDERS: Physician Assistant; Emergency Provider Emergency Medicine; PCP Family Medicine
DX: N39.0 Urinary tract infection, site not specified (principal)
CPT/HCPCS: 36415; 74176; 80053; 81001; 85025; 87086; 87150; 87186; 99285

== ENCOUNTER 2024-04-29 09:43 | Emergency (ER) | payer MEDICARE, SELFPAY ==
[2024-04-29] VITALS (20 sets, daily range): BP systolic 124–157; BP diastolic 76–100; PULSE 85–105; TEMP 36.7; O2SAT 93–96; BMI 40.9
--- OUTSIDE RECORDS SUMMARY | 2024-04-29 09:53 | XMS_ITS | CCD ---
Author Organization [facility] Care Team Providers Care Wiper Blender Name Role Phone ENRICO BELLO Admitting Unavailable ENRICO BELLO Attending Unavailable ENRICO BELLO Consulting Unavailable Larry Granado Primary Care Provider [phone] JODEE, DR NIELSEN Admitting Unavailable JODEE, DR NIELSEN Attending Unavailable ZAKIYA, DR EDWARDS Primary Care Unavailable DARIN, DR WOLFE Admitting Unavailable DARIN, DR WOLFE Attending Unavailable ZAKIYA, DR EDWARDS Primary Care Unavailable MOO CASTANO Consulting Unavailable DARIN, DR WOLFE Consulting Unavailable JODEE, DR NIELSEN Admitting Unavailable JODEE, DR NIELSEN Attending Unavailable ZAKIYA, DR EDWARDS Primary Care Unavailable DR Prashant SCOTT Consulting Unavailable Drew Scott Unavailable Drew Scott Admitting UnavailConner Arreaga Primary Care Unavailable Drew Scott Attending UnavailAashish Lopez Attending Unavailable Aashish Singh Admitting Unavailable NO FAMILY, PHYSICIAN Primary Care Unavailable Sujata Felix Attending Unavailable Sujata Felix Admitting Unavailable Conner Rosales Primary Care Unavailable Ned Ward Attending Unavailable DO Ruben TANG Attending UnavailDO Thai Middletonobir R Admitting UnavailCONNER Arreaga Primary Care Physician [phone] Ruben TANG Attending Unavailable Ruben TANG Admitting Unavailable Armani Ayon Attending Unavailable DO Ruben TANG Admitting UnavailConner Arreaga DO Primary Care Provider Sujata Felix MD Unavailable Conner Rosales DO Unavailable Conner Rosales DO Unavailable Charles Townsend Admitting Unavailable Betancor, Charles Attending Unavailable NONE, XXXX Referring Unavailable Betancor, Charles Admitting Unavailable Betancor, Charles Attending Unavailable Betancor, Charles Referring Unavailable CONNER ROSALES Attending Unavailable CONNER ROSALES Referring Unavailable JOHAN STAPLETON Attending Unavailable SUJATA FELIX Attending Unavailable JOHAN STAPLETON Referring Unavailable BREE FIGUEROA Attending UnavailJERMAINE Franco Attending Unavailable ÁNGEL WEBSTER Attending Unavailable Allergies Allergy Classification Reported Allergen(s) Allergy Type Date of Onset Reaction(s) Facility (9 sources) Aspirin; Translations: [aspirin] Drug Allergy 05-17-19 07 Rash, Difficulty breathing (finding) [facility] Work Phone: (10 sources) Ibuprofen Drug Allergy 05-17-19 07 Rash, Hives [facility] Work Phone: (1 source) Acetaminophen / HYDROcodone Drug Allergy 12-11-19 14 [facility] Repository (1 source) Aspirin Drug Allergy 02-11-20 13 [facility] Repository (1 source) Ibuprofen Drug Allergy 02-11-20 13 [facility] Repository (1 source) Latex Drug allergy (disorder) 02-27-20 14 [facility] Repository (1 source) Meperidine Drug Allergy 02-11-20 13 [facility] Repository (1 source) NSAIDs Drug allergy (disorder) 02-27-20 14 [facility] Repository (2 sources) Sulfonamides (Antibiotic) Propensity to adverse reactions Unknown [facility] [employer] Other (2 sources) Narcotic Pains Meds Propensity to adverse reactions (Emiliano) 01/12/2012 SOB SOB [facility] [employer] Other (2 sources) Motrin, Aspirin Propensity to adverse reactions (Emiliano) 01/12/2012 Shock Shock [employer] [facility] [employer] Other (1 source) Aspirin Drug Allergy 05-31-19 18 [facility] Repository (1 source) Ibuprofen Drug Allergy 05-31-19 18 [facility] Repository (1 source) Meperidine Drug Allergy 05-31-19 18 [facility] Repository (17 sources) NSAIDs; Translations: [NSAIDs] Propensity to adverse reactions (disorder) 09-10-19 Disorientated (finding), Shortness of breath [facility] Repository (8 sources) [place]; Translations: [Strawberries] Propensity to adverse reactions (disorder) Anaphylaxis (disorder) [facility] Repository (9 sources) Aluminum aspirin Drug Allergy 09-10-19 Shortness of breath [facility] Healthcare (9 sources) Meperidine Drug Allergy 09-10-19 Rash [facility] Healthcare (9 sources) Meperidine Drug Allergy 09-10-19 Unknown [facility] Healthcare (9 sources) Sulfonamides (Antibiotic) Drug Allergy 09-10-19 Rash [facility] Healthcare Medications Current Medications Medication Drug Class(es) Dates Sig (Normalized) Sig (Original) [id number] 200 actuat albuterol 0.09 mg/actuat metered dose inhaler (13 sources) beta2-Adrenergic Agonist Start: 08-15-2023 End: 08-14-2024 take 2 puff(s) by inhalation every four hours for wheezing albuterol HFA 90 mcg/act inhaler Indications: Asthma with status asthmaticus, unspecified asthma severity, unspecified whether persistent (CMS/HCC) Inhale 2 puffs every 4 (four) hours if needed for wheezing 1 g 11 08/15/2023 08/14/2024 Active Start: 08-03-2023 End: 12-13-2023 albuterol (2.5 MG/3ML) 0.083 % nebulizer solution Indications: Pulmonary emphysema, unspecified emphysema type (CMS/HCC) Take 3 mL (2.5 mg) by nebulization every 4 (four) hours if needed for wheezing Take 2.5 mg by nebulization every 4 (four) hours if needed for wheezing. 75 mL 3 08/03/2023 12/13/2023 Discontinued Start: 07-01-2020 albuterol (PRO VENTIL) 2.5 mg /3 mL (0.083 %) nebulizer solution Use via nebulizer as needed. 0 07/01/2020 Active Comment on above: Use via nebulizer as needed. amLODIPine 5 mg oral tablet (13 sources) Dihydropyridine Calcium Channel Severino Start: 09-07-19 End: 03-02-20 take 1 tablet by mouth once daily amLODIPine (Norvasc) 5 MG tablet Indications: Essential hypertension (CMS/HCC) TAKE 1 TABLET BY MOUTH EVERY DAY 90 tablet 1 03/02/2024 Active take 1 tablet by mouth once ed y amLODIPine (NORVASC) 5 mg tablet Take 1 tablet by mouth once daily. 0 Active Comment on above: Take 1 tablet by kat th once daily. atomoxetine 10 mg oral capsule (11 sources) Norepinephrine Reuptake Inhibitor Start: 12-13-19 End: 12-13-19 take 1 capsule by mouth once daily atomoxetine (Strattera) 10 MG capsule Indications: ADD (attention deficit disorder) without hyperactivity Take 1 capsule (10 mg) by mouth Daily Swallow capsule whole; do not open. If opened accidentally, do not touch eyes; wash hands immediately (product is an eye irritant). 90 capsule 3 12/13/2023 12/12/2024 Active benoxinate hydrochloride 4 mg/ml / fluorescein sodium 2.5 mg/ml ophthalmic solution (1 source) Diagnostic Dye Start: 11-11-19 End: 11-12-19 fluorescein-benoxina te 0.25-0.4 % 1 Drop (FLURESS) ciprofloxacin 500 mg oral tablet (5 sources) Quinolone Antimicrobial Start: 04-23-19 End: 04-28-19 take 1 tablet by mouth in the morning ciprofloxacin (Cipro) 500 MG tablet Indications: Pelvic pressure in female Take 1 tablet (500 mg) by mouth in the morning and 1 tablet (500 mg) before bedtime. Do all this for 5 days. 10 tablet 04/23/2024 04/28/2024 Active Start: 11-28-2023 End: 12-13-2023 take 1 tablet by mouth twice daily ciprofloxacin (Cipro) 250 MG tablet Indications: Acute cystitis without hematuria 1 tablet orally bid x 3 days 6 tablet 11/28/2023 12/13/2023 Discontinued clopidogrel 75 mg oral tablet (15 sources) [id number] Platelet Inhibitor Start: 08-15-2023 take 1 tablet by mouth once daily clopidogrel (Plavix) 75 MG tablet Indications: Hyperlipidemia, unspecified (CMS/HCC) TAKE 1 TABLET BY MOUTH EVERY DAY 90 tablet 3 08/15/2023 Active Start: 11-02-2021 take 1 tablet by kat th once daily clopidogrel (PLAVIX) 75 mg tablet Take 75 mg by mouth once daily. 0 11/02/2021 Active Comment on above: Take 75 mg by mouth once daily. Cyproheptadine (12 sources) Start: 02-20-2024 take 2 mg by mouth at bedtime cyproheptadine 2 mg, Oral, Bedtime, Refills(s) 0 Start Date: 02/20/24 Status: Ordered Start: 02-12-2024 take 1 tablet by kat th at bedtime cyproheptadine (Periactin) 4 MG tablet Indications: Dizziness and giddiness TAKE 1/2 TABLET BY MOUTH AT BEDTIME 45 tablet 3 02/12/2024 Active Start: 12-02-2022 take 1 tablet by kat th at bedtime cyproheptadine (Periactin) 4 MG tablet Take 4 mg by mouth at bedtime. 12/02/2022 Active escitalopram 20 mg oral tablet (15 sources) Serotonin Reuptake Inhibitor Start: 04-07-2023 take 1 tablet by mouth once daily escitalopram (Lexapro) 20 MG tablet Indications: Anxiety associated with depression TAKE 1 TABLET BY MOUTH EVERY DAY FOR 90 DAYS 90 tablet 3 04/07/2023 Active Start: 10-16-2021 take 1 tablet by kat th once daily escitalopram oxalate (LEXAPRO) 20 mg tablet Take 20 mg by mouth once daily. 0 10/16/2021 Active take 1 tablet by kat th every twenty-four hours Lexapro 10 MG 1 tablet Orally Once a day Active Comment on above: Take 20 mg by mouth once daily. fluconazole 100 mg oral tablet (5 sources) Azole Antifungal take 1 tablet by mouth once fluconazole (Diflucan) 100 MG tablet Take 100 mg by mouth 1 (one) time Active fluticasone propionate 0.05 mg/actuat metered dose nasal spray (10 sources) Corticosteroid Start: take 1 spray(s) nasal route once daily fluticasone (Flonase) 50 MCG/ACT nasal spray Indications: Acute non-recurrent maxillary sinusitis SPRAY 1 SPRAY INTO EACH NOSTRIL EVERY DAY FOR 90 DAYS 48 mL 3 06/16/2023 Active Start: 08-21-2021 take 1 spray(s) nasa l route once daily fluticasone (FLONASE) 50 mcg/actuation nasal spray Use 1 [place] in each nostril once daily. 0 08/21/2021 Active Comment on above: Use 1 [place] in each nostril once daily. hydroCHLOROthiazide 25 mg oral tablet (5 sources) Thiazide Diuretic take 1 tablet by mouth in the morning hydroCHLOROthiazide (HYDRODiuril) 25 MG tablet Take 1 tablet by mouth in the morning. Active omeprazole 40 mg delayed release oral capsule (10 sources) Proton Pump Inhibitor take 1 capsule by mouth before mealtime omeprazole (PriLOSEC) [address] capsule Take 40 mg by mouth in the morning. Take before meals. Active Comment on above: Take 40 mg by mouth once daily. 24 hr oxybutynin chloride 10 mg extended release oral tablet (13 sources) Cholinergic Muscarinic Antagonist Start: 2023 take 1 tablet by mouth once daily oxybutynin XL (Ditropan-XL) 10 MG 24 hr tablet Indications: Spasm of bladder TAKE 1 TABLET BY MOUTH EVERY DAY FOR 90 DAYS 90 tablet 2 02/10/2024 Active Start: 06-16-2023 take 1 tablet by kat th once daily oxybutynin XL (Ditropan-XL) 10 MG 24 hr tablet Indications: Spasm of bladder TAKE 1 TABLET BY MOUTH EVERY DAY FOR 90 DAYS 90 tablet 2 06/16/2023 Active Start: 09-21-2021 take 1 tablet by kat th once daily oxybutynin ER (DITROPAN XL) 10 mg 24 hr tablet Take 10 mg by mouth once daily. 0 09/21/2021 Active Comment on above: Take 10 mg by mouth once daily. pantoprazole 40 mg delayed release oral tablet (2 sources) Proton Pump Inhibitor Start: 09-19-19 20 take 1 tablet by mouth every twenty-four hours Pantoprazole Sodium 40 MG 1 tablet Orally Once a day for 30 day(s) Sep, Active phenylephrine hydrochloride 25 mg/ml ophthalmic solution (1 source) alpha-1 Adrenergic Agonist Start: 11-11-19 End: 11-12-19 PHENYLephrine 2.5 % 1 Drop (AK-DILATE, ABRAHAM-SYNEPHRINE) potassium chloride 20 meq extended release oral tablet (1 source) take 1 tablet by mouth every twenty-four hours Potassium Chloride ER 20 MEQ 1 tablet with food Orally Once a day for 30 days Active pravastatin sodium 40 mg oral tablet (15 sources) HMG-CoA Reductase Inhibitor Start: 06-16-19 take 1 tablet by mouth once daily in the evening pravastatin (Pravachol) 40 MG tablet Indications: Hyperlipidemia, unspecified (CMS/HCC) TAKE 1 TABLET BY MOUTH EVERY DAY IN THE EVENING FOR 90 DAYS 90 tablet 3 06/16/2023 Active Start: 08-20-2021 take 1 tablet by kat th once daily pravastatin (PRAVACHOL) 40 mg tablet Take 40 mg by mouth once daily. 0 08/20/2021 Active take 1 tablet by kat th once daily Pravastatin 10 mg one tab orally daily Active Comment on above: Take 40 mg by mouth once daily. probiotic (1 source) probiotic as dir ected Active proparacaine hydrochloride 5 mg/ml ophthalmic solution (1 source) Local Anesthetic Start: 11-10-2021 End: 11-11-2021 proparacaine 0.5 % 1 Drop (ALCAINE) terconazole 4 mg/ml vaginal cream (2 sources) Azole Antifungal Start: 04-23-2024 End: 04-30-2024 terconazole (Terazol 7) 0.4 % vaginal cream Indications: Vulvovaginal Candidiasis Insert 1 applicator into the vagina at bedtime for 7 days 45 g 2 04/23/2024 04/30/2024 Active tropicamide 10 mg/ml ophthalmic solution (1 source) Anticholinergic Start: 11-10-2021 End: 11-11-2021 tropicamide 1 % 1 Drop (MYDRIACYL) Completed/Discontinued Medications Medication Drug Class(es) Dates Sig (Normalized) Sig (Original) ALPRAZolam 0.5 mg oral tablet (1 source) Benzodiazepine Start: 11-16-2006 take 1 tablet by mouth once daily alprazolam (XANAX) 0.5 mg ORAL Tab Take one(1) tablet three(3) times daily. 0 0 11/16/2006 Active Comment on above: Take one(1) tablet t hree(3) times daily. Budesonide (14 sources) Corticosteroid Start: 02-20-2024 take 3 capsules by mouth once daily budesonide 3 mg, Oral, Daily, Taking 3 capsules for days, Refills(s) 0 Start Date: 02/20/24 Status: Ordered Start: 12-15-2022 take 1 capsule by mo uth in the morning, then take 3 mg by mouth every twenty-four hours budesonide EC (Entocort EC) 3 MG 24 hr capsule Take 9 mg by mouth in the morning. 12/15/2022 Active Start: 09-07-2022 take 3 capsules by m outh once daily Budesonide 3 MG 3 CAPS Orally Once a day for 30 days August, Active clonazePAM 1 mg oral tablet (1 source) Benzodiazepine Start: 01-13-2015 take 0.5 tablet by mouth once daily clonazePAM 1 MG 1/2 tab Orally daily Jan, Not-Taking dicyclomine hydrochloride 20 mg oral tablet (1 source) Anticholinergic Start: 07-21-2020 take 1 tablet by mouth once daily dicyclomine (BENTYL) 20 mg tablet Take 20 mg by mouth once daily. 0 07/21/2020 Active Comment on above: Take 20 mg by mouth once daily. estradiol 0.1 mg/ml vaginal cream (3 sources) Estrogen Start: 08-15-2023 End: 12-13-2023 estradiol (Estrace) 0.1 MG/GM vaginal cream Indications: Vaginal atrophy INSERT 1 GRAM INTO THE VAGINA AT BEDTIME FOR 2 WEEKS, THEN AT BEDTIME TWICE A WEEK 42.5 g 2 08/15/2023 12/13/2023 Discontinued Ethinyl Estradiol / Norethindrone (1 source) Estrogen Start: 05-18-2006 LOESTRIN /20 (21) 1 MG-20 MCG TAB Take one(1) tablet daily. 0 0 05/18/2006 Active Comment on above: Take one(1) tablet d aily. Methylcellulose (1 source) Citrucel Not-Taking metoprolol tartrate 50 mg oral tablet (18 sources) beta-Adrenergic Severino Start: 02-20-2024 End: 02-20-2024 Lopressor 50 mg oral tablet 50 mg = 1 tab(s), Tab, Oral, Start date 02/20/24 9:00:00 AM EST, 02/20/24 0:45:00 EST Start Date: 02/20/24 Stop Date: 02/20/24 Status: Completed Start: 02-20-2024 End: 02-20-2024 take 50 mg by mouth once daily metoprolol 50 mg, Oral, Daily, Refills(s) 0 Start Date: 02/20/24 Status: Ordered Start: 09-26-2023 End: 09-25-2024 take 1 tablet by mouth once daily metoprolol succinate XL (Toprol-XL) 50 MG 24 hr tablet Indications: Essential hypertension (CMS/HCC) TAKE 1 TABLET BY MOUTH DAILY, DO NOT CRUSH OR CHEW 90 tablet 1 01/30/2024 Active Start: 05-18-2006 End: 11-10-2021 TOPROL XL 25 MG 24 HR TAB Ta ke one(1) tablet daily. 0 0 05/18/2006 11/10/2021 Discontinued take 1 tablet by kat th every twenty-four hours Metoprolol Tartrate 25 MG 1 tablet Orally once a day Active Comment on above: Take 1 tablet by kat th once daily. Take one(1) tablet d aily. nitrofurantoin, macrocrystals 25 mg / nitrofurantoin, monohydrate 75 mg oral capsule (2 sources) Nitrofuran Antibacterial Start: 04-23-19 End: 04-23-19 take 1 capsule by mouth in the morning nitrofurantoin, macrocrystal-monohyd rate, (Macrobid) 100 MG capsule Indications: Leukocytes in urine Take 1 capsule (100 mg) by mouth in the morning and 1 capsule (100 mg) before bedtime. Do all this for 7 days. 14 capsule 04/23/2024 04/23/2024 Discontinued permethrin 50 mg/ml topical cream (3 sources) Pyrethroid Start: 09-26-19 End: 12-13-19 permethrin (Elimite) 5 % cream Indications: Scabies infestation apply to skin from hairline to toes and wash off 8-10 hours later 60 g 09/26/2023 12/13/2023 Discontinued predniSONE 10 mg oral tablet (2 sources) Start: 08-19-19 predniSONE 10 MG 8 tablet on day one then decrease by 1 tablet until gone Orally Once a day for 8 day(s) August, Not-Taking risperiDONE 0.25 mg oral tablet (1 source) Atypical Antipsychotic Start: 11-17-19 take 1 tablet by mouth once daily risperidone (RISPERDAL) 0.25 mg ORAL Tab Take one(1) tablet two(2) times daily. 0 0 11/16/2006 Active Comment on above: Take one(1) tablet t wo(2) times daily. THERAPEUTIC MULTIVITAMIN TAB (1 source) Start: 02-07-20 07 THERAPEUTIC MULTIVITAMIN TAB Take one(1) tablet daily. 0 0 05/18/2006 Active Comment on above: Take one(1) tablet d aily. tiZANidine (1 source) Central alpha-2 Adrenergic Agonist tiZANidine HCl Not-Taking Problems Active Problems Problem Classification Problem Date Documented Da te Episodic/Chronic Abdominal pain (8 sources) Abdominal pain; Translations: [Unspecified abdominal pain] 04-23-2024 Episodic Acute cerebrovascular disease (9 sources) Cerebrovascular accident; Translations: [Cerebral infarction, unspecified] Onset: 3 09-22-2022 Chronic Anal and rectal conditions (2 sources) Anal and rectal polyp; Translations: [Rectal polyp] Episodic Anxiety disorders (9 sources) Anxiety; Translations: [Anxiety disorder, unspecified] Onset: 3 11-04-2022 Chronic Asthma (9 sources) Asthma; Translations: [Unspecified asthma, uncomplicated] Onset: 3 11-04-2022 Chronic Cardiac dysrhythmias (9 sources) Atrial fibrillation; Translations: [Unspecified atrial fibrillation] Onset: 3 09-22-2022 Chronic Disorders of lipid metabolism (13 sources) Hyperlipidemia; Translations: [Hyperlipidemia, unspecified] Onset: 3 Chronic Disorders usually diagnosed in infancy, childhood, or adolescence (14 sources) Attention deficit hyperactivity disorder, predominantly inattentive type; Translations: [Other specified behavioral and emotional disorders with onset usually occurring in childhood and adolescence] Onset: 3 02-19-2024 Chronic Disorders usually diagnosed in infancy, childhood, or adolescence (1 source) Behavioral and emotional disorder with onset in childhood; Translations: [Other specified behavioral and emotional disorders with onset usually occurring in childhood and adolescence] Onset: 4 Chronic Esophageal disorders (11 sources) Gastroesophageal reflux disease; Translations: [Gastro-esophageal reflux disease without esophagitis] Onset: 3 11-04-2022 Chronic Essential hypertension (13 sources) Essential hypertension; Translations: [Essential (primary) hypertension] Onset: 3 Chronic Genitourinary symptoms and ill-defined conditions (10 sources) Post-void dribbling; Translations: [Incontinence] Onset: 3 11-04-2022 Chronic Genitourinary symptoms and ill-defined conditions (7 sources) Retention of urine, unspecified; Translations: [Frequency of micturition] Onset: 3 04-23-2024 Episodic Heart valve disorders (9 sources) Mitral valve prolapse; Translations: [Nonrheumatic mitral (valve) prolapse] Onset: 3 11-04-2022 Chronic Hypertension with complications and secondary hypertension (2 sources) Hypertensive urgency ; Translations: [Hypertensive urgency] 02-24-2024 Chronic Inflammatory diseases of female pelvic organs (2 sources) Acute vaginitis; Translations: [Acute vaginitis] 04-23-2024 Episodic Intestinal obstruction without hernia (2 sources) Small bowel obstruction; Translations: [Unspecified intestinal obstruction, unspecified as to partial versus complete obstruction] Episodic Mood disorders (13 sources) Depressive disorder; Translations: [Depression, unspecified] Onset: 3 Chronic Noninfectious gastroenteritis (5 sources) Colitis; Translations: [Noninfective gastroenteritis and colitis, unspecified] Onset: 3 Episodic Nonspecific chest pain (2 sources) Chest pain; Translations: [Other chest pain] Onset: 4 Episodic Other aftercare (1 source) Long-term current use of drug therapy; Translations: [Other penitentiary (current) drug therapy] Onset: 4 Episodic Other aftercare (2 sources) Post-discharge follow-up; Translations: [Encounter for follow-up examination after completed treatment for conditions other than malignant neoplasm] 02-24-2024 Episodic Other and unspecified benign neoplasm (2 [...] STRUCT UNS SITE] Onset: 3 Episodic Other circulatory disease (1 source) History of transient ischemic attack; Translations: [Personal history of transient ischemic attack (TIA), and cerebral infarction without residual deficits] Onset: 4 Episodic Other circulatory disease (3 sources) History of cerebrovascular accident 02-19-2024 Episodic Other diseases of bladder and urethra (9 sources) Spasm of bladder; Translations: [Other specified disorders of bladder] Onset: 3 09-22-2022 Chronic Other ear and sense organ disorders (9 sources) Hearing loss; Translations: [Unspecified hearing loss, unspecified ear] Onset: 3 11-04-2022 Chronic Other gastrointestinal disorders (2 sources) Irritable bowel syndrome with diarrhea; Translations: [Irritable bowel syndrome with diarrhea] Chronic Other gastrointestinal disorders (2 sources) Dysphagia; Translations: [Dysphagia, unspecified] Episodic Other injuries and conditions due to external causes (2 sources) Injury of head; Translations: [Unspecified injury of head, subsequent encounter] 02-24-2024 Episodic Other nutritional; endocrine; and metabolic disorders (9 sources) Morbid obesity; Translations: [Morbid (severe) obesity due to excess calories] Onset: 3 09-09-2022 Chronic Other screening for suspected conditions (not mental [...] Spondylosis; intervertebral disc disorders; other back problems (20 sources) Other intervertebral disc degeneration, lumbar region; Translations: [Spondylosis without myelopathy or radiculopathy, lumbar region] Onset: 3 12-13-2023 Chronic Superficial injury; contusion (3 sources) Right knee abrasion; Translations: [Abrasion, right knee, initial encounter] Onset: 4 Episodic Transient cerebral ischemia (9 sources) Transient cerebral ischemia; Translations: [Transient cerebral ischemic attack, unspecified] Onset: 3 09-22-2022 Chronic Urinary tract infections (1 source) Urinary tract infections; Translations: [Urinary tract infection, site not specified] Onset: 3 Past or Other Problems Problem Classification Problem Date Documented Da te Episodic/Chronic Blindness and vision defects (10 sources) Visual field defect; Translations: [Unspecified visual field defects] Onset: 09-22-2022 Episodic Delirium, dementia, and amnestic and other cognitive disorders (9 sources) Dementia; Translations: [Unspecified dementia without behavioral disturbance] Onset: 11-04-2022 Resolved: 03-28-2023 03-28-2023 Chronic Mood disorders (9 sources) Mood disorders Onset: 07-21-2023 07-21-2023 Other bone disease and musculoskeletal deformities (9 sources) Osteopenia; Translations: [Other specified disorders of bone density and structure, unspecified site] Onset: 09-22-2022 09-22-2022 Episodic Other gastrointestinal disorders (6 sources) Diarrhea, unspecified; Translations: [DIARRHEA UNSPECIFIED] Onset: 08-19-2022 Episodic Other gastrointestinal disorders (11 sources) Diarrhea; Translations: [Diarrhea, unspecified] Onset: 08-18-2023 08-18-2023 Episodic Other nervous system disorders (1 source) Unsteadiness on feet; Translations: [Unsteadiness on feet] Onset: 04-30-2022 Episodic Residual codes; unclassified (9 sources) Amnesia; Translations: [Other amnesia] Onset: 09-22-2022 09-22-2022 Episodic Spondylosis; intervertebral disc disorders; other back problems (20 sources) Radiculopathy, site unspecified; Translations: [Nerve root disorder] Onset: 05-28-2022 09-22-2022 Episodic Results Test Name Value Interpretation Reference Range Facility Urinalysis macro (dipstick) panel (U)on 04-23-2024 Bilirubin, UA Negative Negative - 4(70) +++ mg/dL [facility] Blood, UA Positive Negative - 50 Luís/mcL [facility] Clarity, UA Clear [facility] Color, UA Yellow [facility] Glucose, UA Negative Negative - 2000(110) ++++ mg/dL [facility] Interpretation and review of laboratory results Abnormal [facility] Ketones, UA Negative Negative - 160(16) ++++ mg/dL [facility] Leukocytes, UA Positive Negative - 500+++ Mannie/mcL [facility] Nitrite, UA Negative Negative - Positive [facility] pH, UA 6 5 - 9 [facility] Protein, UA Negative Negative - 2000(20) ++++ mg/dL [facility] Spec Grav, UA 1.01 1 - 1.03 [facility] Urobilinogen, UA 1.0 0.2 - 12 mg/dL [facility] NM Myocardial Spect Rest/Str ess 1 Dayon 04-22-2024 NM Myocardial Spect Rest/Stress 1 Day Exam Date/Time: 04/16/2024 10:43 EST Reason for Exam: R07.9;Chest pain Report [facility] [address] [place] [address] Nuclear Stress Report Name: ROSALBA RIVER Study Date: 04/16/2024 07:57 AM [facility] [place] 1960 (M/d/yyyy) Gender: Female Age: 64 yrs Ethnicity: T Reason For Study: Chest pain Ordering Physician: Charles Townsend Referring Physician: Charles Townsend Protocol 64460 Pharmacologic Lexiscan stress with Isotope. Study Protocol: One day rest/stress acquisition. Rest Dose Tc99m Cardiolite was administered. Rest Dose: 9.3 mCi IV. Stress Dose Stress Protocol: Lexiscan. Stress Dose: 28.3 mCi IV. Stress Parameters Normal blood pressure response. Symptoms: Headache. ECG Rest Occasional PVC's at rest. Normal Sinus Rhythm. ECG Peak Occasional PVC's. No significant changes from baseline. No ST-T wave changes from baseline. Arrhythmia No arrhythmias. Image Quality Rest Images: Limited or suboptimal due to excessive GI uptake. Stress Images: Limited or suboptimal due to excessive GI uptake. SPECT Perfusion No gross reversibility. Left Ventricle Report Normal global and regional wall motion in all territories. Interpretation Summary Normal global and regional wall motion in all territories. Rest Images: Limited or suboptimal due to excessive GI uptake. Stress Images: Limited or suboptimal due to excessive GI uptake. No gross reversibility. TID 0.97 FINAL REPORT Dictated: 04/16/2024 7:57 am Devonte Lazar MD Signed (Electronic Signature): 04/22/2024 3:37 pm Signed by: Devonte Lazar MD Transcribed by: DIVINA Technologist: JESUS Branham [facility] V[facility] Office/Cl inic Noteon 03-01-2024 Heart and Vascular Office/Clinic Note [facility] V[facility] Office/Clinic Note Chief Complaint Inpatient F/U- Chest pain , HTN History of Present Illness 63-year-old woman comes for cardiac evaluation. 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 She recently fell and hit her chest which caused significant chest pain. As a result, she was sent to the cardiology office for evaluation. Chest pain has resolved but in the setting of multiple risk factors and difficult ambulation, she is interested in ruling out underlying blockages with a stress test. Denies heart failure symptoms. Review of Systems PHQ Score Initial Depression Screen Score: 0 SCORE Constitutional: no fever, no chills, no sweats, no weakness Respiratory: no shortness of breath, no cough, no orthopnea, no wheezing Cardiovascular: no chest pain, no palpitations, no edema Additional ROS info: Except as noted in the above Review of Systems and in the History of Present Illness all other systems have been reviewed and are negative or noncontributory. Physical Exam Vitals & Measurements HR: 70(Peripheral) RR: 18 BP: 136/82 SpO2: 96% HT: 64 in HT: 162 cm WT: 107.6 kg WT: 237.217 lb BMI: 41 General: alert, no acute distress ENMT: TM's clear, oral mucosa moist, no pharyngeal erythema or exudate Cardiovascular: regular rate and rhythm, normal peripheral perfusion Respiratory: Lungs CTA, respirations non labored Extremities: no deformity, no trauma Neurological: oriented x 4, LOC appropriate for age, CN II-XII intact, motor strength equal & normal bilaterally, sensation equal & normal bilaterally, speech normal Assessment/Plan 63-year-old woman comes for cardiac evaluation History of chest pain, currently resolved Multiple CAD risk factors Hypertension, currently well-controlled Chronic antiplatelet therapy with Plavix 75 mg daily History of TIA/stroke, with ataxia requiring cane for ambulation Hyperlipidemia, treated with pravastatin 40 mg daily. History of statin myalgias with rosuvastatin atorvastatin Chronic beta-severino therapy with metoprolol 50 mg daily Antihypertensive therapy with amlodipine 5 mg daily No peripheral edema Plan: Obtain echocardiogram to determine left ventricular systolic function rule out any valvular abnormalities Obtain Lexiscan stress test to rule out underlying myocardial ischemia Continue high intensity statin therapy and uptitrate as tolerated Continue Plavix 75 mg daily Continue metoprolol 50 mg daily Continue multipin 5 mg daily Ordered: Echo Transthoracic Complete NM Myocardial Spect Rest/Stress 1 Day Problem List/Past Medical History Ongoing ADD (attention deficit disorder) Depression HLD (hyperlipidemia) HTN (hypertension) Hx of completed stroke Historical No qualifying data Medications amlodipine, 5 mg, Oral, Daily atomoxetine, 10 mg, Oral, Daily budesonide, 3 mg, Oral, Daily clopidogrel, 75 mg, Oral, Daily cyproheptadine, 2 mg, Oral, Bedtime escitalopram, 20 mg, Oral, Daily metoprolol, 50 mg, Oral, Daily oxybutynin, 10 mg, Oral, Daily pravastatin, 40 mg, Oral, Bedtime Allergies NSAIDs (Disorientated) Strawberries (Anaphylactic reaction) aspirin (Difficulty breathing) Social History Alcohol - Denies Alcohol Use, 02/19/2024 Substance Abuse - Denies Substance Abuse, 02/19/2024 Tobacco - Denies Tobacco Use, 02/19/2024 Former smoker, quit more than 30 days ago Tobacco Use:. Never Smokeless Tobacco Use:., 03/01/2024 Family History Acute myocardial infarction: Father. Hypertension: Mother and Father. Primary malignant neoplasm of lung: Mother. Normal [facility] Comment on above: Result Comment: Elec tronically Signed By: Kristian SMITH, Charles\.oscar\Date and Time Signed: 03/01/24 16:19 EST ED Note-Physicianon 02-22-20 ED Note-Physician ED Note-Physician Basic Information Time Seen: Karlie Carter PA-C 02/19/2024 18:03 Chief Complaint c/o right knee, right hand pain, constant midsternal chest pain that radiates across chest. on plavix for hx of stroke 4 years ago. pt states fell yesterday. took tylenol History of Present Illness Patient is a 63-year-old female with a past medical history of a CVA on Plavix, HTN, and anxiety who presents to the ED with chest pain, right knee pain, right hand pain, and right perioribital pain that began following a mechanical fall that occurred yesterday at 1300. Patient states she was walking up a ramp into a store when she tripped on the dress of a lady walking in front of her. Patient notes she fell onto her right side, hitting the right side of her face on the concrete. Patient denies loss of consciousness. She states she was observed by EMS but refused transportation to a hospital. She notes since the fall she has been having increasing pain in her right knee, hand, and chest. Patient states originally the chest pain was localized to the right aspect of her chest but is since radiated across the entire chest. She describes it as constant and tight. Patient denies a history of cardiovascular disease. She denies taking any medication for the pain. Review of Systems A 10 point review of systems is negative except as noted above. Medical and Surgical History: Reviewed and noted Social history: Lives at home Family History: Reviewed. Tobacco: denies Physical Exam Vitals & Measurements T: 36.8 ???C(Oral) HR: 90(Peripheral) RR: 18 BP: 152/90 SpO2: 97% HT: 162 cm WT: 105.1 kg BMI: 40.05 Nurses note and vital signs reviewed and noted. General: The patient appears well and in no apparent distress. Patient is resting comfortably on cart. GCS = 15. Skin: Warm, dry, no pallor noted. Head: Normocephalic, atraumatic Neck: Supple, trachea mid-line, diffuse cervical spinal tenderness to palpation, no lymphadenopathy. The patient has no step-offs or crepitus noted Eyes: PERRLA, EOMI ENT: No abad sign, ecchymosis to the left upper eyelid, left supraorbital tenderness to palpation, no step-offs, no blood in posterior oropharynx, no dental injuries Cardiovascular: Regular Rate and Rhythm, normal peripheral perfusion Respiratory: no distress, no accessory muscle use, no obvious wheezing Chest Wall: Mild tenderness to palpation to the right anterior ribs 3-5 with small area of ecchymosis over rib 4, no flail chest Back: Back has no evidence of trauma, including contusion, abrasion, swelling or ecchymosis. The patient had no evidence of step-offs or crepitus noted. No tenderness to palpation. Musculoskeletal: normal ROM, tenderness to palpation to the right fifth metacarpal with diffuse ecchymosis to the posterior aspect of the right hand, 2 abrasions to the anterior right knee, no focal bony tenderness to palpation of the right knee, full range of motion of the right knee intact, neurovascularly intact. Moves all four extremities in all modalities with 5/5 strength. GI: Soft, no tenderness to palpation, no masses appreciated. No rebound, guarding, or rigidity noted. 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 Psychiatric: Cooperative Procedure Heart Score for Major Cardiac Event History: Example factors for history - pattern of chest pain, onset, duration, relation with exercise, stress or cold, localization, concomitant symptoms. reaction to sublingual nitrates, [] Highly suspicious +2 [] Moderately suspicious +1 [x] Slightly suspicious 0 EKG: [x] Significant ST-Depression +2 [] Non specific repolarization disturbance +1 [] Normal 0 Age: [] >= 65 +2 [x] 45-65 + 1 [] <45 0 Risk Factors: (HLD, HTN, DM, Cigarette Smoking, Pos Family Hx, Obesity) [] >3 risk factors or hx of atherosclerotic disease + 2 [x] 1-2 risk factors + 1 [] No risk factors known 0 Troponin: [] >= 3X normal + 2 [] 1-3X normal + 1 [x] <= Normal 0 [] 0-3 Points 0.9 - 1.7% risk of major adverse cardiac event in 6 weeks [x] 4-6 Points 12-16.6% risk of major adverse cardiac event in 6 weeks [] 7-10 Points 50-65% risk of major adverse cardiac event in 6 weeks [] 0-3 Points with 2 sets of negative cardiac markers <1% risk of major adverse cardiac event in 30 days. Medical Decision Making Patient is a 63-year-old female with a past medical history of a CVA on Plavix, HTN, and anxiety who presents to the ED with chest pain that began following a mechanical fall that occurred yesterday at 1300. Patient is hemodynamically stable and afebrile. Heart score is 4. Patient was requesting pain medications. Due to an allergy to NSAIDs, she was offered morphine. Patient then denied this stating that s (more content not included)... Normal [facility] Comment on above: Result Comment: Elec tronically Signed By: Karlie Carter PA-C\.br\Date and Time Signed: 02/19/24 22:33 EST\.br\Electronically Co-Signed By: Karlie Carter PA-C\.br\Date and Time Co-Signed: 02/19/24 22:56 EST\.br\Electronically Co-Signed By: Ned Ward M.D.\.br\Date and Time Co-Signed: 02/22/24 07:21 EST ABO/Rh History Checkon 02-20 ABO/Rh History Check Patient discharged prior Normal [facility] Comment on above: Performed By: #### 1 [id number] #### [facility] [address] [place] [address] CHEMISTRYOrdered By: SYSTEM SYSTEM on 02-20-2024 Cholesterol [Mass/Vol] 170 mg/dL Normal 120 - 200 mg/dL [facility] Cholesterol in HDL [Mass/Vol] 51 mg/dL Invalid Interpretation Code [facility] Comment on above: Result Comment: '>= 60 LOW RISK' '<= 40 HIGH RISK' Cholesterol in LDL [Mass/Vol] 108 mg/dL Normal <=129mg/dL [facility] Cholesterol in VLDL [Mass/Vol] 21 mg/dL Normal 7 - 40 mg/dL [facility] Free T4 [Mass/Vol] 0.75 ng/dL Normal 0.58 - 1. 64 ng/dL [facility] Triglyceride [Mass/Vol] 107 mg/dL Normal <=149mg/dL [facility] Troponin HS 8.50 pg/mL Low 10.10 - 27.10 pg/mL [facility] Comment on above: Interpretive Data: T he 95% CI (Confidence Interval) PPV (Positive Predictive Value) for myocardial infarction in females is 38 pg/mL, in males 51 pg/mL. The results should be used in conjunction with clinical conditions of myocardial infarction. (Access High Sensitivity Troponin I Instructions For Use, [employer], November 2017) TSH Qn 5.91 m[IU]/L High 0.34 - 5.60 mcIU/mL [facility] CHEMISTRYOrdered By: Karla Elmore on 02-20-2024 HbA1c (Bld) [Mass fraction] 5.7 % Normal <=5.9% [facility] [place] CT Abdomen/Pelvis w/ Contras ton 02-20-2024 CT Abdomen/Pelvis w/ Contrast Exam Date/Time: 02/19/2024 19:20 EST Reason for Exam: ABDOMINAL TRAUMA;Trauma Report Review CT chest, for report CT abdomen pelvis. All CT scans at this facility use dose modulation, iterative reconstruction, and/or weight based dosing when appropriate to reduce radiation dose to as low as reasonably achievable. Ordering Provider: Karlie Carter FINAL REPORT Dictated: 02/20/2024 9:21 am Víctor Arevalo MD Signed (Electronic Signature): 02/20/2024 9:21 am Signed by: Víctor Arevalo MD Transcribed by: GENO Technologist: RAJAT Technical Comments GFR (mL/min/1/73m2) >60 Contrast: Isovue 300 Contrast amount in ml's: 130 Rectal Contrast Given? No Normal [facility] CT Chest w/ Contraston 02-19 CT Chest w/ Contrast Exam Date/Time: 02/19/2024 19:20 EST Reason for Exam: CHEST TRAUMA, MOD-SEVERE;Trauma Report IMPRESSION: CHOLECYSTECTOMY. NO ACUTE DISEASE, CT CHEST ABDOMEN PELVIS. CT OF THE CHEST, ABDOMEN, AND PELVIS WITH INTRAVENOUS CONTRAST MEDIUM. HISTORY: Trauma, CHEST TRAUMA, MOD-SEVERE TECHNICAL FACTORS: CT imaging of the chest, abdomen, and pelvis, was obtained and formatted as 5 mm contiguous axial images from the thoracic inlet through the symphysis pubis. Sagittal and coronal reconstructions obtained during postprocessing. Intravenous contrast medium: 130 mL, Isovue-300. Comparison: None CT OF THE CHEST WITH INTRAVENOUS CONTRAST MEDIUM. FINDINGS: Right lung: No nodules, masses, consolidation, pleural effusion, pneumothorax. Dependent subsegmental atelectatic change. Left lung: No nodules, masses, consolidation, pleural effusion, pneumothorax. Dependent subsegmental atelectatic change. Lymph nodes: No hilar, mediastinal, or axillary lymph node enlargement. Thoracic aorta: Normal in course and caliber. Cardiac: Size normal. No pericardial effusion. No coronary artery calcification. Musculoskeletal:No osteoblastic, and no osteolytic lesions. CT OF THE ABDOMEN AND PELVIS WITH INTRAVENOUS CONTRAST MEDIUM. Report FINDINGS: Liver: Normal in size, shape, and attenuation. Bile Ducts: Normal in caliber. Gallbladder: Surgically absent. Pancreas: Normal without masses, cysts, ductal dilatation or calcification. Spleen: Normal in size without masses or calcifications. Splenules measuring 10 and 6 mm, anterior to anterior spleen. Kidneys: Normal in size and enhancement. No hydronephrosis, masses, or stones. Adrenals: Normal. Small bowel: Normal in caliber. Appendix: Normal. Colon: Normal in caliber. Peritoneum: No ascites, free air, or fluid collections. Vessels: Aorta normal in course and caliber. Portal vein, splenic vein, superior mesenteric vein are patent. Lymph nodes: Retroperitoneal: No enlarged retroperitoneal lymph nodes. Mesenteric: No enlarged mesenteric lymph nodes. Pelvic: No enlarged pelvic lymph nodes. Ureters: Normal in course and caliber. No calcifications. Bladder: No wall thickening. Reproductive organs: No pelvic masses. Abdominal Wall: No hernia identified. No diastasis of rectus musculature. No edema or masses. Bones: No bone lesions. Posterior disc space narrowing L3-L4 with diffuse disc space narrowing L4-L5 and L5-S1. Posterior osteophytes L3 and L4. No post operative changes. All CT scans at this facility use dose modulation, iterative reconstruction, and/or weight based dosing when appropriate to reduce radiation dose to as low as reasonably achievable. Report Ordering Provider: Karlie Carter FINAL REPORT Dictated: 02/20/2024 9:20 am Signer Víctor SMITH Signed (Electronic Signature): 02/20/2024 9:20 am Signed by: Signer Víctor SMITH Transcribed by: GENO Technologist: RAJAT Technical Comments GFR (mL/min/1/73m2) >60 Contrast: Isovue 300 Contrast amount in ml's: 130 Normal [facility] CT Head or Brain w/o Contras ton 02-20-2024 CT Head or Brain w/o Contrast Exam Date/Time: 02/19/2024 19:20 EST Reason for Exam: HEAD TRAUMA, MOD-SEVERE;Other (please specify) Report IMPRESSION: NO EVIDENCE OF INTRACRANIAL HEMORRHAGE. CLINICAL HISTORY: HEAD TRAUMA, MOD-SEVERE. Patient fell. Pain. COMMENT: Unenhanced images were obtained. The ventricles and basal cisterns and cortical sulci appear within normal limits. There is no mass effect nor midline shift. There are small ill-defined areas of mildly decreased attenuation involving cerebral white matter and white matter of the basal ganglia bilaterally, that are nonspecific, but with small vessel ischemic changes suspected. There is no evidence of intracranial hemorrhage nor extra-axial hematoma. No mass lesion is evident. No skull fracture is noted. All CT scans at this facility use dose modulation, iterative reconstruction, and/or weight based dosing when appropriate to reduce radiation dose to as low as reasonably achievable. Ordering Provider: Karlie Carter FINAL REPORT Dictated: 02/20/2024 9:10 am Jama Ivy M.D. Signed (Electronic Signature): 02/20/2024 9:10 am Signed by: Jama Ivy M.D. Transcribed by: GENO Technologist: RAJAT Normal [facility] CT Maxillofacial w/o Contras ton 02-20-2024 CT Maxillofacial w/o Contrast Exam Date/Time: 02/19/2024 19:20 EST Reason for Exam: Trauma Report IMPRESSION: NO EVIDENCE OF FACIAL BONE FRACTURE. CLINICAL HISTORY: Trauma. Patient fell. Pain. COMMENT: Unenhanced images were obtained. The facial bone structures, including bones of the orbits, nasal bones, zygomatic arches, bony xie of the paranasal sinuses, the maxilla, and the mandible, are unremarkable in appearance, without evidence of fracture. The intraorbital structures are unremarkable and no intraorbital hematoma is evident. The left frontal sinus is underdeveloped. The paranasal sinuses are aerated and otherwise unremarkable. There is deviation of the bony nasal septum to the right, this appears chronic, as no fracture line is evident. The nasal cavities are unremarkable. The upper teeth are absent and some of the lower teeth are absent. All CT scans at this facility use dose modulation, iterative reconstruction, and/or weight based dosing when appropriate to reduce radiation dose to as low as reasonably achievable. Ordering Provider: Karlie Carter FINAL REPORT Dictated: 02/20/2024 9:28 am Jama Ivy M.D. Signed (Electronic Signature): 02/20/2024 9:28 am Signed by: Jama Ivy M.D. Transcribed by: GENO Technologist: RAJAT King [facility] CT Spine Cervical w/o Contra diane 02-20-2024 CT Spine Cervical w/o Contrast Exam Date/Time: 02/19/2024 19:20 EST Reason for Exam: NECK TRAUMA, DANGEROUS INJURY MECHANISM;Trauma Report IMPRESSION: NO EVIDENCE OF CERVICAL SPINE FRACTURE. MULTILEVEL DEGENERATIVE CHANGES. CLINICAL HISTORY: Trauma, NECK TRAUMA, DANGEROUS INJURY MECHANISM. Patient fell. Pain. COMMENT: Unenhanced images were obtained. There is kyphotic curvature of the cervical spine, which may be positional, developmental, degenerative, or due to cervical muscle spasm. There are mild hypertrophic degenerative arthritic changes at the atlantoodontoid articulation. There is mild narrowing of interspaces from C4-C5 through C7-T1. There is marginal hypertrophic spurring of vertebral bodies from C4 through T1, and there are hypertrophic spurs of uncinate processes at C4-C5 bilaterally, C5-C6 bilaterally, and C6-C7 bilaterally. There is associated neural foraminal encroachment at these levels. The cervical vertebral bodies are maintained in height. No fracture nor subluxation is noted. There is no prevertebral retropharyngeal soft tissue swelling. Evaluation of cervical intervertebral discs is limited, but with posterior hypertrophic spurring of vertebral bodies, there are anterior extradural defects at the C4-C5, C5-C6, and C6-C7 levels, with decreases in AP spinal canal diameters. All CT scans at this facility use dose modulation, iterative reconstruction, and/or weight based dosing when appropriate to reduce radiation dose to as low as reasonably achievable. Ordering Provider: Karlie Carter FINAL REPORT Dictated: 02/20/2024 9:21 am Jama Ivy M.D. Signed (Electronic Signature): 02/20/2024 9:21 am Signed by: Jama Ivy M.D. Transcribed by: GENO Technologist: RAJAT King [facility] Discharge Note-Nursingon Discharge Note-Nursing Discharge Note-Nursing ROSALBA NICOLE :1960 Visit Date:02/19/2024 Inpatient Discharge Instructions Your Care Team Admitting Physician - Ruben TANG DO Reason for Your Visit Chest Pain, Fall Your Diagnosis Acute chest pain Abrasion of knee, right Traumatic ecchymosis of right hand Traumatic periorbital ecchymosis of right eye HTN (hypertension) Hx of completed stroke HLD (hyperlipidemia) Depression ADD (attention deficit disorder) On deep vein thrombosis (DVT) prophylaxis Anterior chest wall pain Chest pain Facial pain Fall Hand pain-swelling Knee pain-swelling Tests Performed ABO/Rh History Check -- Results Pending -- Hemoglobin A1c -- Results Pending -- CT Abdomen/Pelvis w/ Contrast CT C-Spine w/o Contrast CT Chest w/ Contrast CT Head or Brain w/o Contrast CT Maxillofacial w/o Contrast XR Hand 3+ Views Right XR Knee Complete 4+ Views Right Please visit your patient portal for your results or contact your primary care physician. This Is Your Medications List amlodipine atomoxetine budesonide clopidogrel cyproheptadine escitalopram metoprolol oxybutynin pravastatin Discharge Vitals Temperature (Oral) 36.7 ???C Heart Rate (Apical) 78 Respiratory Rate 16 Blood Pressure 149/86 Height 162 cm Weight 105 kg BMI 40.05 What to do next Instructions From Your Doctor Event Name Event Result Discharge Activity Ambulate as tolerated Discharge Restrictions No restrictions Discharge Diet(s) Fat Modified- Low cholesterol Previously Scheduled Follow-Up Appointments 2023 11:00 AM EST With: Charles Townsend MD Where: [facility] New Follow Up Appointments after Discharge Follow Up with [facility] - new patient visit When: 03/01/2024 11:00 AM EST Comments: Will be seeing Dr. Townsend at this appointment. Follow Up with CON[facility]ALES When: Comments: Patient is to call Doctor's office to make hospital follow up appoinment. Where: [address], [address] [place] [address]- [employer] ([facility]) Medications What How Much When Instructions Next Dose Unchanged amlodipine 5 Milligram By Mouth Every day 02/21/2024 Unchanged atomoxetine 10 Milligram By Mouth Every day Resume 02/21/2024 Unchanged budesonide 3 Milligram By Mouth Every day Taking 3 capsules for days Resume 02/21/2024 Unchanged clopidogrel 75 Milligram By Mouth Every day 02/21/2024 Unchanged cyproheptadine 2 Milligram By Mouth At bedtime Tonight at bedtime Unchanged escitalopram 20 Milligram By Mouth Every day 02/21/2024 Unchanged metoprolol 50 Milligram By Mouth Every day 02/21/2024 Unchanged oxybutynin 10 Milligram By Mouth Every day 02/21/2024 Unchanged pravastatin 40 Milligram By Mouth At bedtime Tonight at bedtime Test Results CBC BMP WBC: 10.2 E9/L (02/19/24 18:26:00) Glucose Lvl: 97 mg/dL (02/19/24 18:26:00) RBC: 4.8 E12/L (02/19/24 18:26:00) BUN: 10 mg/dL (02/19/24 18:26:00) HGB: 14.2 gm/dL (02/19/24 18:26:00) Creatinine: 0.6 mg/dL (02/19/24 18:26:00) Hct: 40.8 % (02/19/24 18:26:00) BUN/Creat Ratio: 17 (02/19/24 18:26:00) MCV: 85.1 fL (02/19/24 18:26:00) Sodium Lvl: 139 mmol/L (02/19/24 18:26:00) MCH: 29.7 pg (02/19/24 18:26:00) Potassium Lvl: 3.2 mmol/L Low (02/19/24:00) MCHC: 34.9 gm/dL (02/19/24::) Chloride: 104 mmol/L (02/19/24::) RDW: 13.7 % (02/19/24::) CO2: 27 mmol/L (02/19/24::) Platelet: 366 E9/L (02/19/24::) AGAP: 11 mEq/L (02/19/24::) MPV: 7.6 fL (02/19/24::) Calcium Lvl: 9.1 mg/dL (02/19/24::) Allergies NSAIDs (Disorientated) Strawberries (Anaphylactic reaction) aspirin (Difficulty breathing) Problems Ongoing - Any problem that you are currently receiving treatment for. ADD (attention deficit disorder) Depression HLD (hyperlipidemia) HTN (hypertension) Hx of completed stroke Education Materials Chest Wall Pain Chest wall pain is pain in or around the bones and muscles of your chest. Sometimes, an injury causes this pain. Excessive coughing or overuse of arm and chest muscles may also cause chest wall pain. Sometimes, the cause may not be known. This pain may take several weeks or longer to get better. Follow these instructions at home: Managing pain, stiffness, and swelling ??? If directed, put ice on the painful area: ? Put ice in a plastic bag. ? Place a towel between your skin and the bag. ? Leave the ice on for 20 minutes, 2???3 times per day. Activity ??? Rest as told by your health care provider.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 second(s) [facility] Comment on above: Interpretive Data: 1 5 days - 4 weeks 1 - 5 months 6 -11 months 1 5 years 6 10 years 11 -17 years Mean: 11.2 (9.5 12.6) Mean: 11.0 (9.7 12.8) Mean: 11.0 (9.8 13.0) Mean: 11.3 (9.9 13.4) Mean: 11.7 (10.0 14.6) Mean: 11.8 (10.0 - 14.1) Pediatric Reference ranges were obtained from a study by arline Horton al. prepared from 1437 samples obtained at 7 different centers using the same coagulation reagent and instrumentation as [facility]. Currently there are no coagulation studies available worldwide for children to 14 days, and no normal ranges. ED Clinical Summaryon 2023 ED Clinical Summary ED Clinical Summary [place] [id number] ED Clinical Summary Person Information Name: ROSALBA NICOLE [facility] Age: 63 Years : 1960 Sex: Female Language: [place] PCP: CONNER ROSALES DO Marital Status: Visit Id: Visit Reason: Facial pain; Hand pain-swelling; Knee pain-swelling; Fall; Chest pain; CP / FELL Speciality: Acuity: 2 Enc Type: Observation Med Service: Medical Arrival: 02/19/2024 17:44:36 Discharge: LOS: 000 06:03 Checkin: 02/19/2024 17:44:36 Checkout: 02/19/2024 23:47:38 Dispo Type: Admitted as IP to this [facility] EVENTS: Event Name Event Status Request Date/Time Start Date/Time Complete Date/Time Arrive Complete 02/19/2024 17:44:36 02/19/2024 17:44:36 02/19/2024 17:44:36 Document Home Meds Request 02/19/2024 17:44:36 Triage Complete 02/19/2024 17:44:36 02/19/2024 18:02:12 02/19/2024 18:02:12 Bed Assign Complete 02/19/2024 17:51:00 02/19/2024 17:51:00 02/19/2024 17:51:00 Dr Exam Complete 02/19/2024 17:51:00 02/19/2024 18:03:12 02/19/2024 18:03:12 RN Exam Complete 02/19/2024 17:51:00 02/19/2024 18:07:46 02/19/2024 18:07:46 EKG Complete 02/19/2024 17:53:57 02/19/2024 17:57:45 Registration Complete 02/19/2024 17:55:17 02/19/2024 17:55:17 02/19/2024 17:55:17 Reg Complete Request 02/19/2024 17:55:17 Reg Bed Request Complete 02/19/2024 17:55:17 02/19/2024 17:55:17 02/19/2024 17:55:17 Registration Complete 02/19/2024 18:03:12 02/19/2024 19:24:35 02/19/2024 19:24:35 Fall Risk Request 02/19/2024 18:07:46 NPO Request 02/19/2024 18:14:26 Pending Labs Inlab 02/19/2024 18:14:26 Lab Complete 02/19/2024 18:14:26 02/19/2024 20:21:53 Urine Collect Complete 02/19/2024 18:14:26 02/19/2024 20:21:53 Patient Care Request 02/19/2024 18:14:26 CT Complete 02/19/2024 18:14:26 02/19/2024 18:56:39 02/19/2024 19:20:54 Blood Collect Request 02/19/2024 18:14:26 X-Ray Complete 02/19/2024 18:14:26 02/19/2024 19:16:17 02/19/2024 19:44:14 RT Request 02/19/2024 18:14:26 Dr Exam Complete 02/19/2024 18:19:47 02/19/2024 18:19:47 02/19/2024 18:19:47 Meds Admin Complete 02/19/2024 18:20:46 02/19/2024 18:30:39 Pending Labs Complete 02/19/2024 18:31:54 02/19/2024 18:31:54 02/19/2024 18:58:25 Lab Complete 02/19/2024 18:31:54 02/19/2024 18:31:54 02/19/2024 18:58:25 X-Ray Complete 02/19/2024 19:06:59 02/19/2024 19:16:17 02/19/2024 19:44:14 Wet Read Request 02/19/2024 19:44:14 Pending Labs Cancel 02/19/2024 21:02:49 02/19/2024 23:11:01 Meds Admin Request 02/19/2024 21:46:21 Meds Admin Complete 02/19/2024 21:48:26 02/19/2024 21:53:54 Consult Request 02/19/2024 22:00:41 Hospitalist Consult Request 02/19/2024 22:00:41 Observation Request 02/19/2024 22:11:52 Patient Care Request 02/19/2024 22:11:52 Patient Care Request 02/19/2024 22:11:54 Patient Care Request 02/19/2024 22:11:54 Medicare Form Complete 02/19/2024 22:11:55 02/19/2024 22:19:32 Patient Care Request 02/19/2024 22:11:55 Patient Care Request 02/19/2024 22:11:55 Patient Care Request 02/19/2024 23:07:28 Meds Admin Request 02/19/2024 23:07:28 RT Request 02/19/2024 23:07:28 Pending Labs Request 02/19/2024 23:11:01 Lab Request 02/19/2024 23:11:01 ADDRESS: [address] [place] [id number] [facility] DOC NOTES: MEDICAL INFORMATION: Prescriptions Given: PATIENT EDUCATION INFORMATION: Instructions: Follow up: DIAGNOSIS: 1:Acute chest pain; 2:Abrasion of knee, right; 3:Traumatic ecchymosis of right hand; 4:Traumatic periorbital ecchymosis of right eye; 5:HTN (hypertension); 6:Hx of completed stroke; 7:HLD (hyperlipidemia); 8:Depression; 9:ADD (attention deficit disorder); 10:On deep vein thrombosis (DVT) prophylaxis; Anterior chest wall pain Normal [facility] ED Patient Education Noteon 02-19-2024 ED Patient Education Note ED Patient Education Note Normal [facility] ED Patient Summaryon 024 ED Patient Summary ED Patient Summary [place] [id number] Patient Discharge Instructions Person Information Name: ROSALBA NICOLE Age: 63 Years Arrival Date: 02/19/2024 17:44:36 Discharge Diagnosis: 1:Acute chest pain; 2:Abrasion of knee, right; 3:Traumatic ecchymosis of right hand; 4:Traumatic periorbital ecchymosis of right eye; 5:HTN (hypertension); 6:Hx of completed stroke; 7:HLD (hyperlipidemia); 8:Depression; 9:ADD (attention deficit disorder); 10:On deep vein thrombosis (DVT) prophylaxis; Anterior chest wall pain Primary Care Physician: CONNER ROSALES DO Provider Information Primary Provider: Ned Ward M.D. Advanced Straw Boss:Karlie Carter PA-C The exam and treatment you received in the Emergency Department were for an urgent problem and are not intended as complete care. It is important that you follow up with a doctor, nurse practitioner, or physician???s fws faculty assistant for ongoing care. If your symptoms become worse or you do not improve as expected and you are unable to reach your usual health care provider, you should return to the Emergency Department. We are available 24 hours a day. ROSALBA NICOLE has been given the following list of patient education materials, prescriptions and follow-up instructions: Follow-up Instructions: In the event that this physician does not participate in your insurance network, please consult with your insurance company to find a nearby participating provider. Patient Education Materials: A MESSAGE TO ALL PATIENTS REGARDING OPIOIDS PRESCRIPTION OPIOIDS: WHAT YOU NEED TO KNOW Prescription opioids can be used to help relieve [id number] pain and are often prescribed following a surgery or injury, or for certain health conditions. These medications can be an important part of the treatment but also come with serious risks. It is important to work with your healthcare provider to make sure you are getting the safest, most effective care. WHAT ARE THE RISKS AND SIDE EFFECTS OF OPIOID USE? Prescription opioids carry serious risks of addiction and overdose, especially with prolonged use. An opioid overdose, often marked by slowed breathing, can cause sudden . The use of prescription opioids can have a number of side effects as well, even when taken as directed: ??? Tolerance???meaning you might need to take more of the medication for the same pain relief ??? Physical dependence???meaning you have symptoms of withdrawal when a medication is stopped ??? Increased sensitivity to pain ??? Constipation ??? Nausea, vomiting, and dry mouth ??? Sleepiness and dizziness ??? Confusion ??? Depression ??? Low levels of testosterone that can result in lower sex drive, energy, and strength ??? Itching and sweating RISKS ARE GREATER WITH: ??? History of drug misuse, substance use disorder, or overdose ??? Mental health conditions (such as depression or anxiety) ??? Sleep apnea ??? Older age (65 years and older) ??? Avoid alcohol while taking prescription opioids. Also, unless specifically advised by your health care provider, medications to avoid include: ??? Benzodiazepines (such as Xanax or Valium) ??? Muscle relaxants (such as Soma or Flexeril) ??? Hypnotics (such as Ambien or Lunesta) ??? Other prescription opioids KNOW YOUR OPTIONS Talk to your health care provider about ways to manage your pain that don???t involve prescription opioids. Some of these options may actually work better and have fewer risks and side effects. Options may include: ??? Pain relievers such as acetaminophen, ibuprofen, and naproxen ??? Some medication that are also used for depression or seizures ??? Physical therapy and exercise ??? Cognitive behavioral therapy, a psychological, goal-directed approach, in which patients learn how to modify physical, behavioral, and emotional triggers of pain and stress. IF YOU ARE PRESCRIBED OPIOIDS FOR PAIN: ??? Never take opioids in greater amounts or more often than prescribed. ??? Follow up with your primary health care provider. o Work together to create a plan on how to manage your pain. o Talk about ways to help manage your pain that don???t involve prescription opioids. o Talk about any and all concerns and side effects. ??? Help prevent misuse and abuse o Never sell or share prescription opioids. o Never use another person???s prescription opioids. ??? Store prescription opioids in a secure place and out of reach of others (this may include visitors, children, friends, and family). ??? Safely dispose of unused prescription opioids: Find your community drug take-back program or your pharmacy mail-back program, or flush them down the toilet, following guidance from the Food and Drug Administration (www.fda.gov/Drugs/Re sourcesForYou). ??? Visit www.cdc.gov/drugo (more content not included)... Normal [facility] Ethanolon 02-19-2024 Ethanol Lvl <10 Normal <=11 [facility] Comment on above: Performed By: #### 2 [id number] #### [facility] Laboratory [address] [place] [address] HEMATOLOGYOrdered By: SYSTEM SYSTEM on 02-19-2024 Basophils/100 WBC (Bld) 1.4 % Normal 0.0 - 2.0 % Remisol Heme Basophils/Leukocytes Auto (Bld) [Pure # fraction] 0.1 E9/L Normal 0.0 - 0.2 E9/L Remisol Heme Eosinophils (Bld) [#/Vol] 0.1 E9/L Normal 0.0 - 0.5 E9/L Remisol Heme Eosinophils/100 WBC (Bld) 0.5 % Normal 0.0 - 8.0 % Remisol Heme Erythrocyte distribution width (RBC) [Ratio] 13.7 % Normal 10.9 - 14.2 % Remisol Heme Hematocrit (Bld) [Volume fraction] 40.8 % Normal 34.0 - 46.0 % Remisol Heme Hemoglobin (Bld) [Mass/Vol] 14.2 g/dL Normal 12.0 - 16.0 gm/dL Remisol Heme Lymphocytes (Bld) [#/Vol] 2.8 E9/L Normal 1.0 - 4.0 E9/L Remisol Heme Lymphocytes/100 WBC (Bld) 27.9 % Normal 14.0 - 50.0 % Remisol Heme MCH (RBC) [Entitic mass] 29.7 pg Normal 27.0 - 34.0 pg Remisol Heme MCHC (RBC) [Mass/Vol] 34.9 g/dL Normal 31.4 - 36.0 gm/dL Remisol Heme MCV (RBC) [Entitic vol] 85.1 fL Normal 80.0 - 100.0 fL Remisol Heme Monocytes (Bld) [#/Vol] 1.0 E9/L Normal 0.2 - 1.0 E9/L Remisol Heme Monocytes/100 WBC (Bld) 9.8 % Normal 4.0 - 14.0 % Remisol Heme Neutrophils (Bld) [#/Vol] 6.2 E9/L Normal 2.0 - 7.5 E9/L Remisol Heme Neutrophils/100 WBC (Bld) 60.4 % Normal 36.0 - 75.0 % Remisol Heme Platelet 366.0 E9/L Normal 150.0 - 500.0 E9/L Remisol Heme Platelet mean volume (Bld) [Entitic vol] 7.6 fL Normal 6.4 - 10.8 fL Remisol Heme RBC (Bld) [#/Vol] 4.8 E12/L Normal 4.3 - 5.9 E12/L Remisol Heme WBC corrected for nucl RBC Auto (Bld) [#/Vol] 10.2 E9/L Normal 4.0 - 11.0 E9/L Remisol Heme Hep Func Panelon 02-19-2024 Albumin [Mass/Vol] 4.2 g/dL Normal 3.3-5.0 [facility] Comment on above: Performed By: #### 2 [id number] #### [facility] [address] [place] [address] Albumin/Globulin (S) [Mass conc ratio] 1.4 Normal 1.1-2.2 [facility] Comment on above: Performed By: #### 2 [id number] #### [facility] [address] [place] [address] ALP [Catalytic activity/Vol] 91 Int._Unit/L Normal 21-98 [facility] Comment on above: Performed By: #### 2 [id number] #### [facility] [address] [place] [address] ALT No additional P-5'-P [Catalytic activity/Vol] 32 Int._Unit/L Normal 6-46 [facility] Comment on above: Performed By: #### 2 [id number] #### [facility] [address] [place] [address] AST [Catalytic activity/Vol] 33 Int._Unit/L Normal 5-43 [facility] Comment on above: Performed By: #### 2 [id number] #### [facility] [address] [place] [address] Bilirubin [Mass/Vol] 0.5 mg/dL Normal 0.0-1.1 [facility] Comment on above: Performed By: #### 2 [id number] #### [facility] [address] [place] [address] Bilirubin.direct [Mass/Vol] 0.0 mg/dL Normal 0.0-0.4 [facility] Comment on above: Performed By: #### 2 [id number] #### [facility] [address] [place] [address] Bilirubin.indirect [Mass or moles/Vol] 0.5 mg/dL Normal 0.1-0.9 [facility] Comment on above: Performed By: #### 2 [id number] #### [facility] [address] [place] [address] Globulin (S) [Mass/Vol] 3.0 g/dL Normal 1.4-4.0 [facility] Comment on above: Performed By: #### 2 [id number] #### [facility] [address] [place] [address] Protein [Mass/Vol] 7.2 g/dL Normal 6.0-7.8 [facility] Comment on above: Performed By: #### 2 [id number] #### [facility] [address] [place] [address] Lipase Levelon 02-19-2024 Lipase [Catalytic activity/Vol] 33 U/L Normal 13-58 [facility] Comment on above: Performed By: #### 2 [id number] #### [facility] [address] [place] [address] PT & PTTon 02-19-2024 aPTT Coag (PPP) [Time] 34.3 second(s) Normal 25.1-36.5 [facility] Comment on above: Result Comment: Para meter 15 days - 4 weeks 1 - 5 months 6 - 11 months 1 - 5 years 6 - 10 years 11 - 17 years PTT Mean: 35.4 (27.6-45.6) Mean: 33.5 (24.8-40.7) Mean: 32.4 (25.1-40.7) Mean: 31.6 (24.0-39.2) Mean: 31.6 (26.9-38.7) Mean: 31.0 (24.6-38.4) Pediatric Reference ranges were obtained from a study by arline Horton al. prepared from 1437 samples obtained at 7 different centers using the same coagulation reagent and instrumentation as [facility]. Currently there are no coagulation studies available worldwide for children to 14 days, and no normal ranges. Heparin therapeutic range (represented by Anti-Factor Xa activity of 0.2 - 0.4 U/mL) corresponds to PTT of 56.6 - 109.0 sec. Performed By: #### 1 [id number] #### [facility] [address] [place] [address] INR Coag (PPP) [Relative time] 0.96 {INR} Invalid Interpretation Code [facility] Comment on above: Result Comment: INR results are specifically intended to assess patients stabilized on long-term Anticoagulation therapy suggested INR???s ???Less Intensive Anticoagulation??? 2.0 ??? 3.0 Conventional Range 3.0 ??? 4.5 Performed By: #### 1 [id number] #### [facility] [address] [place] [address] PT Coag (PPP) [Time] 10.8 second(s) Normal 9.4-12.5 [facility] Comment on above: Result Comment: 15 d ays - 4 weeks 1 - 5 months 6 -11 months 1 ??? 5 years 6 ??? 10 years 11 -17 years Mean: 11.2 (9.5 ??? 12.6) Mean: 11.0 (9.7 ??? 12.8) Mean: 11.0 (9.8 ??? 13.0) Mean: 11.3 (9.9 ??? 13.4) Mean: 11.7 (10.0 ??? 14.6) Mean: 11.8 (10.0 - 14.1) Pediatric Reference ranges were obtained from a study by Fish Patel et al. prepared from 1437 samples obtained at 7 different centers using the same coagulation reagent and instrumentation as [facility]. Currently there are no coagulation studies available worldwide for children to 14 days, and no normal ranges. Performed By: #### 1 [id number] #### [facility] [address] [place] [address] Troponin 0 Hr.on 02-19-2024 Troponin HS 5.80 pg/mL Low 10.10-27.10 [facility] Comment on above: Result Comment: The 95% CI (Confidence Interval) PPV (Positive Predictive Value) for myocardial infarction in females is 38 pg/mL, in males 51 pg/mL. The results should be used in conjunction with clinical conditions of myocardial infarction. (Access High Sensitivity Troponin I Instructions For Use, [employer], November 2017) Performed By: #### 1 [id number] #### [facility] [address] [place] [address] Troponin 1 Hr.on 02-19-2024 Troponin HS 6.80 pg/mL Low 10.10-27.10 [facility] Comment on above: Order Comment: 1926 pt with xay will check back [id number] 02/19/2024 19:23:43 EST Result Comment: The 95% CI (Confidence Interval) PPV (Positive Predictive Value) for myocardial infarction in females is 38 pg/mL, in males 51 pg/mL. The results should be used in conjunction with clinical conditions of myocardial infarction. (Access High Sensitivity Troponin I Instructions For Use, [employer], November 2017) Performed By: #### 1 [id number] #### [facility] [address] [place] [address] U Drug Screenon 02-19-2024 Amphetamines Screen method >1000 ng/mL Ql (U) Negative Normal NEGATIVE [facility] Comment on above: Result Comment: Nega tive Cutoff: <1000 ng/mL Performed By: #### 2 [id number] #### [facility] [address] [place] [address] Barbiturates Screen Ql (U) Negative Normal NEGATIVE [facility] Comment on above: Result Comment: Nega tive Cutoff: <200 ng/mL Performed By: #### 2 [id number] #### [facility] [address] [place] [address] Benzodiazepines Ql (U) Negative Normal NEGATIVE [facility] Comment on above: Result Comment: Nega tive Cutoff: <200 ng/mL Performed By: #### 2 [id number] #### [facility] [address] [place] [address] Cannabinoids Screen Ql (U) Negative Normal NEGATIVE [facility] Comment on above: Result Comment: Nega tive Cutoff: <50 ng/mL Performed By: #### 2 [id number] #### [facility] [address] [place] [address] Cocaine Ql (U) Negative Normal NEGATIVE [facility] Comment on above: Result Comment: Nega tive Cutoff: <300 ng/mL Performed By: #### 2 [id number] #### [facility] [address] [place] [address] Opiates Screen Ql (U) Negative Normal NEGATIVE [facility] Comment on above: Result Comment: Nega tive Cutoff: <300 ng/mL Performed By: #### 2 [id number] #### [facility] [address] [place] [address] Phencyclidine Screen method >25 ng/mL Ql (U) Negative Normal NEGATIVE [facility] Comment on above: Result Comment: Nega tive Cutoff: <25 ng/mL These drug screen results are to be used for medical (i.e., treatment) purposes only. Unconfirmed drug screening results must not be used for non-medical purposes (e.g., employment testing, legal testing). Performed By: #### 2 [id number] #### [facility] [address] [place] [address] U Fentanyl Negative Normal NEGATIVE [facility] Comment on above: Result Comment: Nega tive Cutoff: <5 ng/mL These drug screen results are to be used for medical (i.e., treatment) purposes only. Unconfirmed drug screening results must not be used for non-medical purposes (e.g., employment testing, legal testing). Performed By: #### 2 [id number] #### [facility] [address] [place] [address] eGFRon 02-19-2024 eGFR 101 mL/min/1.73 m2 Normal >=59 [facility] Comment on above: Performed By: #### 1 [id number] #### [facility] [address] [place] [address] BI MAMMOGRAM SCREENING TOMOS YNTHESIS BILATERALon 07-21-2023 [...] IS VERY IMPORTANT TO YOUR HEALTH. THE [place] [employer] GUIDELINES RECOMMEND THAT WOMEN 40 YEARS OF AGE AND OLDER SHOULD HAVE A MAMMOGRAM EVERY YEAR. A REMINDER LETTER WILL BE SENT AT THE APPROPRIATE TIME. ELECTRONICALLY SIGNED BY: Ken Howard DO Normal Not Available Urine Cultureon 09-09-2022 Bacteria identified Cx Nom (U) No Growth 2 Days PERFORMED BY: [email or web address] [address]una[address] [place] [id number] PATHOLOGIST DOOR AND ARRIVAL ATTENDANT PATEL LAWSON M.D. Normal [facility] Comment on above: Performed By: #### C UU #### [place] [id number] [facility] 09-02-2022 L - -------- Specimen: [id number] Received: 09/02/22 Status: MOLLY Vira Num: [id number] Spec Type: Surgical Subm Dr: Drew Scott MD Tissues: A Colon Biopsy (RANDOM COLON BX) Procedures: LUANA Dias/Roberto, Gross/Micro L4, CD3 -------- Age/ Patient Sex Location Account Attending Physician -------- Rosalba River 62/F [id number] Drew Scott MD -------- SPEC NUM: [id number] RECD: 09/02/22 STATUS: MOLLY VIRA NUM: [id number] IOANA: 09/02/22- [facility] DR: Drew Scott MD ENTERED: 09/02/[address] [facility] [address]: DIAZ TYPE: Surgical DEPT: S ORDERED: [...] Entirely submitted in one cassette labeled A1. -------- Specimen: [id number] Received: 09/02/22 Status: MOLLY Rodrígueztsering Num: [id number] Spec Type: Surgical Subm Dr: Drew Scott MD Tissues: A Colon Biopsy (RANDOM COLON BX) Procedures: Trichrome, HE/2, Gross/Micro L4, CD3 -------- Patient: Rosalba River Prashant [id number] (Continued) -------- Specimen: [id number] Received: 09/02/22 (Continued) Signed (signature on file) Sunita Copeland MD 09/03/22 1517 -------- Specimen: [id number] Received: 09/02/22 Status: MOLLY Rodrígueztsering Num: [id number] Spec Type: Surgical Subm Dr: Drew Scott MD Tissues: A Colon Biopsy (RANDOM COLON BX) Procedures: Trichrome, HE/2, Gross/Micro L4, CD3 -------- Patient: Rosalba River [id number] (Continued) -------- Specimen: [id number] Received: 09/02/22 (Continued) Microscopic Description Two H E slides reviewed. The microscopic examination confirms the diagnosis. CPT Codes 73007, 92649, 65809 -------- -------- Specimen: [id number] Received: 09/02/22 Status: MOLLY Zepeda Num: [id number] Spec Type: Surgical Subm Dr: Drew Scott MD Tissues: A Colon Biopsy (RANDOM COLON BX) Procedures: Trichrome, HE/2, Gross/Micro L4, CD3 -------- Patient: Rosalba River [id number] (Continued) -------- Signed (signature on file) Sunita Copeland MD 09/03/22 1517 Normal [facility] CBC AUTO DIFFon 08-19-2022 BASO # 0.1 103/ul Normal 0.0-0.1 [facility] Comment on above: Performed By: #### C BC #### [facility] [address] [place] [address] Dr. Jenny Shin Basophils/100 WBC (Bld) 0.8 % Normal 0.2-2.0 [facility] Comment on above: Performed By: #### C BC #### [facility] [address] [place] [address] Dr. Jenny Shin EO # 0.2 103/ul Normal 0.0-0.7 [facility] Comment on above: Performed By: #### C BC #### [facility] [address] [address] [address] Jenny Shin Eosinophils/100 WBC (Bld) 2.2 % Normal 0.9-7.0 [facility] Comment on above: Performed By: #### C BC #### [facility] [address] [place] [address] Dr. Jenny Shin Erythrocyte distribution width (RBC) [Ratio] 12.9 % Normal 11.0-15.0 [facility] Comment on above: Performed By: #### C BC #### [facility] [address] [address] [address] Jenny Shin Hematocrit (Bld) [Volume fraction] 43.0 % Normal 36.0-48.0 [facility] Comment on above: Performed By: #### C BC #### [facility] [address] [address] [address] Jenny Shin Hemoglobin (Bld) [Mass/Vol] 14.3 g/dL Normal 12.0-16.0 [facility] Comment on above: Performed By: #### C BC #### [facility] [address] [address] [address] Jenny Shin IG # 0.03 10e3/ul Normal 0.00-0.03 [facility] Comment on above: Performed By: #### C BC #### [facility] [address] [address] [address] Jenny Shin IG % 0.4 % Normal 0.0-0.5 [facility] Comment on above: Performed By: #### C BC #### [facility] [address] [address] [address] Jenny Shin LYMPH # 2.8 103/ul Normal 1.2-3.8 [facility] Comment on above: Performed By: #### C BC #### [facility] [address] [address] [address] Jenny Shin Lymphocytes/100 WBC (Bld) 35.7 % Normal 20.5-60.0 [facility] Comment on above: Performed By: #### C BC #### [facility] [address] [place] [address] Dr. Jenny Shin MANUAL DIFF REQ NO Normal [facility] Comment on above: Performed By: #### C BC #### [facility] [address] [place] [address] Dr. Jenny Shin MCH (RBC) [Entitic mass] 28.4 pg Normal 26.7-34.0 [facility] Comment on above: Performed By: #### C BC #### [facility] [address] [address] [address] Jenny Shin MCHC (RBC) [Mass/Vol] 33.3 g/dL Normal 29.9-35.2 [facility] Comment on above: Performed By: #### C BC #### [facility] [address] [address] [address] Jenny Shin MCV (RBC) [Entitic vol] 85.3 fL Normal 81.0-99.0 [facility] Comment on above: Performed By: #### C BC #### [facility] [address] [place] [address] Dr. Jenny Shin MONO # 0.6 103/ul Normal 0.3-0.8 [facility] Comment on above: Performed By: #### C BC #### [facility] [address] [place] [address] Dr. Jenny Shin Monocytes/100 WBC (Bld) 7.3 % Normal 1.7-12.0 [facility] Comment on above: Performed By: #### C BC #### [facility] [address] [place] [address] Dr. Jenny Shin NEUT # 4.1 103/ul Normal 1.4-6.5 [facility] Comment on above: Performed By: #### C BC #### [facility] [address] [place] [address] Dr. Jenny Shin Neutrophils/100 WBC (Bld) 53.6 % Normal 43.0-75.0 [facility] Comment on above: Performed By: #### C BC #### [facility] [address] [place] [address] Dr. Jenny Shin Platelet mean volume (Bld) [Entitic vol] 9.5 fL Normal 9.5-13.5 [facility] Comment on above: Performed By: #### C BC #### [facility] [address] [place] [address] Dr. Jenny Shin PLT 339 103/ul Normal 150-450 [facility] Comment on above: Performed By: #### C BC #### [facility] [address] [place] [address] Dr. Jenny Shin RBC 5.04 106/ul Normal 4.20-5.40 [facility] Comment on above: Performed By: #### C BC #### [facility] [address] [place] [address] Dr. Jenny Shin WBC 7.7 103/ul Normal 4.0-11.0 [facility] Comment on above: Performed By: #### C BC #### [facility] [address] [place] [address] Dr. Jenny Shin CRPon 08-19-2022 CRP [Mass/Vol] mg/L Normal <=1.[address] [facility] Comment on above: Performed By: #### C RP, CMP #### [facility] [address] [place] [address] Dr. Jenny Shin PROF 14(COMP METB)on 023 Albumin [Mass/Vol] 3.7 g/dL Normal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 Obstetrics and Gynecology Patient: Rosalba River : 1960 (64 y.o.) Exam Date: 04/23/2024 Reason for Visit - Chief Complaint Patient presents with sick visit She has had pain that has been going on for 4 days now. The pain is near the bladder. The patient states she has two different types of pain one being a pressure pain and the other a dull pain that comes and goes. She has had discharge and smell that has been going on for a month. She did state she has a little burning while she wipes now. Pt also mentions that she is painful intercourse. Blood and leukocytes in urine: culture sent The patient reports experiencing pressure in the pelvic area for approximately two months. She also mentions having bladder issues recently. The patient has recently resumed sexual activity and describes the initial experience as painful, followed by a burning sensation in her vagina. She attributes this to postmenopausal vaginal fragility. The patient has a history of stroke and expresses concern about using estrogen cream for her vaginal symptoms due to potential risks. She is open to trying alternative treatments before resorting to estrogen therapy. Visit Vitals LMP (LMP Unknown) OB Status Postmenopausal Smoking Status Former History of Present Illness, Associated Treatments and Results - OB History Para Term AB Living 2 0 0 0 1 1 SAB IAB Ectopic Multiple Live Births 1 0 0 0 0 # Outcome Date GA Lbr Zac/2nd Weight Sex Type Anes PTL Lv 2 5 lb 12 oz Vag-Spont 1 SAB Constitutional: Negative. HENT: Negative. Eyes: Negative. Respiratory: Negative. Cardiovascular: Negative. Gastrointestinal: Negative. Endocrine: Negative. Genitourinary: Negative. Musculoskeletal: Negative. Skin: Negative. Allergic/Immunologic: Negative. Neurological: Negative. Hematological: Negative. Psychiatric/Behavioral: Negative. Allergies Allergen Reactions Aspirin Shortness of breath Nsaids Shortness of breath Ibuprofen Hives Meperidine Hcl Unknown Meperidine Rash Sulfa Antibiotics Rash Current Outpatient Medications: albuterol HFA 90 mcg/act inhaler, Inhale 2 puffs every 4 (four) hours if needed for wheezing, Disp: 1 g, Rfl: 11 amLODIPine (Norvasc) 5 MG tablet, TAKE 1 TABLET BY MOUTH EVERY DAY, Disp: 90 tablet, Rfl: 1 atomoxetine (Strattera) 10 MG capsule, Take 1 capsule (10 mg) by mouth Daily Swallow capsule whole; do not open. If opened accidentally, do not touch eyes; wash hands immediately (product is an eye irritant)., Disp: 90 capsule, Rfl: 3 budesonide EC (Entocort EC) 3 MG 24 hr capsule, Take 9 mg by mouth in the morning., Disp: , Rfl: clopidogrel (Plavix) 75 MG tablet, TAKE 1 TABLET BY MOUTH EVERY DAY, Disp: 90 tablet, Rfl: 3 cyproheptadine (Periactin) 4 MG tablet, TAKE 1/2 TABLET BY MOUTH AT BEDTIME, Disp: 45 tablet, Rfl: 3 escitalopram (Lexapro) 20 MG tablet, TAKE 1 TABLET BY MOUTH EVERY DAY FOR 90 DAYS, Disp: 90 tablet, Rfl: 3 fluconazole (Diflucan) 100 MG tablet, Take 100 mg by mouth 1 (one) time, Disp: , Rfl: fluticasone (Flonase) 50 MCG/ACT nasal spray, SPRAY 1 SPRAY INTO EACH NOSTRIL EVERY DAY FOR 90 DAYS, Disp: 48 mL, Rfl: 3 hydroCHLOROthiazide (HYDRODiuril) 25 MG tablet, Take 1 tablet by mouth in the morning., Disp: , Rfl: metoprolol succinate XL (Toprol-XL) 50 MG 24 hr tablet, TAKE 1 TABLET BY MOUTH DAILY, DO NOT CRUSH OR CHEW, Disp: 90 tablet, Rfl: 1 omeprazole (PriLOSEC) [address] capsule, Take 40 mg by mouth in the morning. Take before meals., Disp: , Rfl: oxybutynin XL (Ditropan-XL) 10 MG 24 hr tablet, TAKE 1 TABLET BY MOUTH EVERY DAY FOR 90 DAYS, Disp: 90 tablet, Rfl: 2 pravastatin (Pravachol) 40 MG tablet, TAKE 1 TABLET BY MOUTH EVERY DAY IN THE EVENING FOR 90 DAYS, Disp: 90 tablet, Rfl: 3 Past Medical History: Diagnosis Date ADHD (attention deficit hyperactivity disorder) ([facility]) 2022 Alcohol abuse Anxiety Arthritis Asthma (CMS/[facility]) bleeding problems Colitis 09/09/2022 Depression (CMS/HCC) Elevated cholesterol (CMS/[facility]) Encounter for screening colonoscopy 2017 H/O colonoscopy 2005 H/O dilation of urethra H/O esophagogastroduodenoscopy 2005 H/O laparoscopy History of angina History of being hospitalized 11/06/2016 [facility] [place] Dis[place] 11/07/16 History of being hospitalized 01/22/2017 [facility] - Discharged 01/25/17 Small Bowel obstruction History of blood transfusion Hyperlipidemia (CMS/HCC) Hypertension (CMS/HCC) IBS (irritable bowel syndrome) 2011 Infertility, female MVP (mitral valve prolapse) Obesity S/P appy Stroke (CMS/HCC) 2014 TIA (transient ischemic attack) 2017 left Urinary tract infection Varicella Visual impairment Past Surgical History: Procedure Laterality Date ANKLE FRACTURE SURGERY Left 1991 Dr Farris APPENDECTOMY 1983 CHOLECYSTECTOMY 07/2020 COLONOSCOPY 2011, 2014 and 2017 2022 DENTAL SURGERY FRACTURE SURGERY 1993 OTHER SURGICAL HISTORY Procedure:tubal insuffulation & lysis;Disease:laparoacopy TONSILLECTOMY 1970 TUBAL LIGATION WRIST SURGERY Left 1995 Family History Problem Relation Name Age of Onset Lung cancer Mother Heart disease Father Manfred Arthritis Father Manfred Hypertension Sister Sandy Lantigua Asthma Sister Sandy Lantigua Miscarriages / Stillbirths Sister Sandy Lantigua Hypertension Brother [place] Diabetes Mother's Sister Aunt Hypertension Sister [place]abel [place] Social History Tobacco Use Smoking Status Former Current packs/day: 0.00 Average packs/day: 0.3 packs/day for 22.1 years (5.5 ttl pk-yrs) Types: Cigarettes Start date: 08/16/1999 Quit date: 09/18/2021 Years since quittin.5 Passive exposure: Never Smokeless Tobacco Never Physical Exam - General appearance, mentation, extraocular movements, facial strength and movement, hearing, upper and lower extremity strength and tone, sensation to gross testing, coordination, and gait are normal or at baseline unless noted below. Physical Exam Constitutional: Appearance: Normal appearance. Genitourinary: Right Labia: No rash or lesions. Left Labia: No lesions or rash. No vaginal discharge or erythema. No vaginal prolapse present. No vaginal atrophy present. Right Adnexa: not tender and no mass present. Left Adnexa: not tender and no mass present. No cervical lesion. Uterus is not tender. Uterus is anteverted. Breasts: Right: Normal. No mass or nipple discharge. Left: Normal. No mass or nipple discharge. HENT: Head: Normocephalic and atraumatic. Cardiovascular: Rate and Rhythm: Normal rate and regular rhythm. Pulmonary: Breath sounds: Normal breath sounds. Abdominal: General: There is no distension. Palpations: Abdomen is soft. There is no mass. Tenderness: There is no abdominal tenderness. Musculoskeletal: General: Normal range of motion. Cervical back: Neck supple. Lymphadenopathy: Cervical: No cervical adenopathy. Neurological: Mental Status: She is alert and oriented to person, place, and time. Skin: General: Skin is warm and dry. Psychiatric: Mood and Affect: Mood normal. Assessment/Plan ICD-10-CM 1. Vaginal pain R10.2 2. Pelvic pressure in female R10.2 Nuswab ordered Pt will be informed of results Prescriptions sent DEHA 2% vaginal cream sent to [facility] 1. Pelvic pressure and dyspareunia: - Patient reports pelvic pressure for approximately two months and painful intercourse. - Plan: a) Prescribe vaginal cream to help alleviate symptoms related to vaginal atrophy. b) Discuss alternative options if the patient is concerned about potential risks due to her history of stroke. 2. Urinary symptoms and possible urinary tract infection (UTI): - Patient reports bladder issues and burning sensation. - Urinalysis shows blood and white cells in the urine. - Plan: a) Prescribe a course of antibiotics to treat the possible UTI. b) Instruct the patient to follow up if symptoms do not improve or worsen. 3. Postmenopausal vaginal atrophy: - Patient reports painful intercourse and burning sensation. - Plan: a) Prescribe vaginal cream to help alleviate symptoms. b) Discuss alternative options if the patient is concerned about potential risks due to her history of stroke. 4. Referral to pharmacist: - Plan: a) Provide the patient with the contact information for Mike Juan for assistance with obtaining the prescribed medications. 5. Follow-up: - Plan: a) Schedule a follow-up appointment to assess the patient's response to treatment and address any ongoing concerns. documented in this encounter [facility] 04-19-2024 Telephone encounter Note Called and spoke with pt- scheduled 04/23 at 1230 [facility] 04-19-2024 Miscellaneous Notes Called and spoke with pt- scheduled 04/23 at 1230 She is not a new patient, last seen 09/2022- can be scheduled on Tuesday at 12:30, double with the injection Pt would be [employer], she last seen [facility] 2022. Is there anywhere you all can see her before May,. Patient called wanting to make an apt with . She has had pain that has been going on for 4 days now. The pain is near the bladder. The patient states she has two different types of pain one being a pressure pain and the other a dull pain that comes and goes. She has had discharge and smell that has been going on for a month. She did state she has a little burning while she wipes now. She would like the soonest apt. documented in this encounter [facility] 04-19-2024 Telephone encounter Note She is not a new patient, last seen 09/2022- can be scheduled on Tuesday at 12:30, double with the injection [facility] 04-18-2024 Telephone encounter Note Pt would be [employer], she last seen 2022. Is there anywhere you all can see her before May,. [facility] 04-18-2024 Telephone encounter Note Patient called wanting to make an apt with . She has had pain that has been going on for 4 days now. The pain is near the bladder. The patient states she has two different types of pain one being a pressure pain and the other a dull pain that comes and goes. She has had discharge and smell that has been going on for a month. She did state she has a little burning while she wipes now. She would like the soonest apt. [facility] 02-24-2024 History of Present illness Narrative Formatting of this note is different fro m the original. Images from the original note were not included. [facility] ERENDIRA Le SUBJECTIVE: HPI: Rosalba River is a 63 y.o. female who presents with chief complaint of Hospital Follow-up Pt presents today for hospital follow up. Pt states she has fallen and hit her head. Pt is feeling better since going to the ER but is very sore near the ribs along with some headaches. Pt is going to see a Intensive Care Specialist. Pt states she refused getting any pain medications. Pt was [place] [facility] Note is not in chart. I have reviewed and reconciled the history and medication list with the patient today. History of Present Illness The patient presents for evaluation following a fall. She recounts a recent trip to [place] during which she tripped over a sidewalk due to a stroke-affected leg that occasionally fails to lift properly. This resulted in a fall where she hit her head, causing a brief period of darkness but maintaining auditory awareness. She experienced shortness of breath, which resolved after a few minutes. Despite feeling okay initially, she later developed widespread pain and a sensation of chest constriction. She sought emergency care where she was found to have high blood pressure and was kept overnight. A CT scan was performed, which showed no abnormalities. Her medication regimen remained unchanged. She attributes her elevated blood pressure to anxiety related to the fall. She has been diligent in taking her medications and reports no presence of lumps or bumps under her chin. She also reports no abdominal pain. She mentions bruising on her ribs and was informed that her kidney function was normal. She was referred to a instructional systems specialist in [place] for further evaluation. She continues to experience headaches and soreness and was told she may have a concussion. The bruising on her eyelid has started to fade. She monitors her blood pressure at home, which has been generally stable, although it was slightly elevated yesterday morning. Depression: Not at risk (07/21/2023) PHQ-2 PHQ-2 Score: 0 reports that she quit smoking about 2 years ago. Her smoking use included cigarettes. She started smoking about 24 years ago. She has a 5.5 pack-year smoking history. She has never been exposed to tobacco smoke. She has never used smokeless tobacco. She reports that she does not currently use alcohol. She reports that she does not use drugs. OBJECTIVE: 12/23/2022 8:50 AM 03/12/2023 1:00 PM 03/17/2023 3:22 PM 07/21/2023 3:57 PM 07/21/2023 4:07 PM 08/18/2023 8:57 AM 02/24/2024 11:45 AM Vitals BMI 40.03 kg/m2 40.74 kg/m2 40.39 kg/m2 40.92 kg/m2 40.92 kg/m2 41.1 kg/m2 40.78 kg/m2 BSA (m2) 2.14 m2 2.15 m2 2.14 m2 2.16 m2 2.16 m2 2.16 m2 2.15 m2 Systolic 158 160 134 124 124 144 158 Diastolic 98 110 86 72 72 86 96 Heart Rate 71 81 74 76 76 84 SpO2 96 % 95 % 98 % Temp 97.6 F 98.1 F 98.1 F 96.9 F Height (in) 5' 3 5' 3 5' 3 5' 3 5' 3 Weight (lb) 226 230 228 231 231 232 230.2 Visit Report Report Report Report Report Report Report Report Report Physical Exam Constitutional: General: She is not in acute distress. Appearance: She is not ill-appearing. HENT: Head: Normocephalic. Comments: Ecchymosis noted on R upper eyelid Cardiovascular: Rate and Rhythm: Normal rate and regular rhythm. Heart sounds: No murmur heard. Pulmonary: Effort: Pulmonary effort is normal. Breath sounds: Normal breath sounds. No wheezing. Chest: Chest wall: Tenderness present. Abdominal: General: Abdomen is flat. There is no distension. Tenderness: There is no abdominal tenderness. Musculoskeletal: General: No deformity. Normal range of motion. Cervical back: Normal range of motion. Skin: General: Skin is warm and dry. Neurological: General: No focal deficit present. Mental Status: She is alert and oriented to person, place, and time. Psychiatric: Mood and Affect: Mood normal. Behavior: Behavior normal. Thought Content: Thought content normal. Judgment: Judgment normal. Physical Exam Results Imaging CT scan of the head was normal. No results found for this or any previous visit (from the past 4 weeks). ASSESSMENT AND PLAN: Assessment/Plan Diagnoses and all orders for this visit: Hospital discharge follow-up Traumatic injury of head, subsequent encounter Hypertensive urgency ([facility]) Assessment & Plan 1. Fall. She experienced a fall during a trip to [place], resulting in bruising and soreness, particularly in the ribs. A CT scan was performed in the emergency room, which was normal. She reports ongoing headaches and soreness, suggesting a possible concussion. The discharge summary from [facility] is pending for further review. No changes to her current treatment plan are being made at this time. 2. Elevated blood pressure. Hypertensive urgency. Per patient, cardiac enzymes and cardiac workup were normal, but she was referred to cardiology as an outpatient for follow up. Elevated again here in the office, but she states she has checked reatedly at home and systolic BP is not above 130. Her blood pressure remains elevated, likely due to anxiety related to the fall. She has been taking her medications without missing any doses. Blood pressure readings at home have been generally stable. No changes to her current treatment plan are being made at this time. The instructional systems specialist in [place] will further evaluate her condition. Jermaine Peace DO Patient Active Problem List Diagnosis Morbid obesity ([facility]) Degenerative disc disease, lumbar Lumbosacral spondylosis without myelopathy Osteopenia Memory loss ADD (attention deficit disorder) without hyperactivity Stroke ([facility]/HCC) Transient ischemic attack Radiculopathy Spasm of bladder Diplopia Atrial fibrillation ([facility]CC) Anxiety Asthma ([facility]/HCC) Essential hypertension ([facility]/HCC) Gastroesophageal reflux disease without esophagitis Hearing loss Hyperlipidemia ([facility]/HCC) Major depression, single episode ([facility]/HCC) Mitral valve prolapse Mixed stress and urge incontinence Diarrhea Lumbosacral radiculopathy at L5 Past Medical History: Diagnosis Date ADHD (attention deficit hyperactivity disorder) ([facility]/HCC) 2022 Alcohol abuse Anxiety Arthritis Asthma ([facility]/HCC) bleeding problems Colitis 09/09/2022 Depression ([facility]/HCC) Elevated cholesterol ([facility]) Encounter for screening colonoscopy 2017 H/O colonoscopy 2005 H/O dilation of urethra H/O esophagogastroduodenoscopy 2005 H/O laparoscopy History of angina History of being hospitalized [place] [facility] [place] 11/07/16 History of being hospitalized 01/22/2017 [facility] - Discharged 01/25/17 Small Bowel obstruction History of blood transfusion Hyperlipidemia ([facility]/HCC) Hypertension (CMS/HCC) IBS (irritable bowel syndrome) 2011 Infertility, female MVP (mitral valve prolapse) Obesity S/P appy Stroke ([facility]/HCC) 2014 TIA (transient ischemic attack) 2017 left Urinary tract infection Varicella Visual impairment documented in this encounter [facility] 02-20-2024 Evaluation + Plan note Extrac jefferson from: Title:Discharge Note Author:Armani Ayon DO Date:02/20/24 stable Discharged to - Home with family care Discharge Diet(s): Fat Modified- Low cholesterol (02/20/24 10:45:00) Prescriptions No active prescription medications Home amlodipine, 5 mg, Oral, Daily atomoxetine, 10 mg, Oral, Daily budesonide, 3 mg, Oral, Daily clopidogrel, 75 mg, Oral, Daily cyproheptadine, 2 mg, Oral, Bedtime escitalopram, 20 mg, Oral, Daily metoprolol, 50 mg, Oral, Daily oxybutynin, 10 mg, Oral, Daily pravastatin, 40 mg, Oral, Bedtime With When Contact Information [facility] - new patient visit Additional Instructions: CONNER ROSALES [address] [place] [address] Rd, [facility] [address] [place] [address]- [facility] (1) Additional Instructions: Call for followup appointment Addendum by Susan Ayon DO on February 20, 2024 11:04:15 EST Patient has mobility limitation that impairs her ability to complete 1 or more mobility related activities in the home. She can safely use a cane and mobility deficit can be resolved with the use of the cane. Extracted from: Title:Admission H & P Author:Ruben TANG DO Date:02/19/24 1. Acute chest pain (R07.9: Chest pain, unspecified) Cycle cardiac enzymes. Will check TSH, hemoglobin A1c and fasting lipid panel with morning labs. Please note patient had an incomplete stress test the beginning of summer 2023. Patient was unable to walk on the treadmill for more than 1 minute. Patient would like referral to [facility] for medication based stress test. 2. Abrasion of knee, right (S80.211A: Abrasion, right knee, initial encounter) Supportive care. Tylenol as needed. Trauma evaluation performed emergency department shows no acute fracture. 3. Traumatic ecchymosis of right hand (S60.221A: Contusion of right hand, initial encounter) No acute fracture noted. Pain control as needed. 4. Traumatic periorbital ecchymosis of right eye (S05.11XA: Contusion of eyeball and orbital tissues, right eye, initial encounter) Supportive care 5. HTN (hypertension) (I10: Essential (primary) hypertension) Resume home medications once reconciled. Hydralazine iv prn. see orders. 6. Hx of completed stroke (Z86.73: Personal history of transient ischemic attack (TIA), and cerebral infarction without residual deficits) Continue Plavix. Will ask physical therapy to evaluate patient to ensure her deficits have not worsened. 7. HLD (hyperlipidemia) (E78.5: Hyperlipidemia, unspecified) Continue statin 8. Depression (F32.A: Depression, unspecified) Resume home medications once reconciled. 9. ADD (attention deficit disorder) (F98.8: Other specified behavioral and emotional disorders with onset usually occurring in childhood and adolescence) Resume home medications once reconciled. 10. On deep vein thrombosis (DVT) prophylaxis (Z79.899: Other terminologist (current) drug therapy) SCD, enoxaparin Orders: acetaminophen, 650 mg = 2 tab(s), Tab, Oral, q6hr PRN Pain, Routine, Start date 02/19/24 23:06:00 EST, 02/19/24 23:06:00 EST diphenhydrAMINE, 25 mg = 1 cap(s), Cap, Oral, q6hr PRN Itching, Routine, Start date 02/19/24 23:06:00 EST, 02/19/24 23:06:00 EST enoxaparin, 40 mg = 0.4 mL, Injection, SubCutaneous, Daily for 30 day(s), Stop date 03/21/24 8:59:00 EST, Routine, Start date 02/20/24 9:00:00 EST, 02/19/24 23:06:00 EST hydrALAZINE, 10 mg = 0.5 mL, Injection, IV Push, q6hr PRN Other (see comment), Routine, Start date 02/19/24 23:06:00 EST, 02/19/24 23:06:00 EST ondansetron, 4 mg = 2 mL, Injection, IV Push, q6hr PRN Nausea, Routine, Start date 02/19/24 23:06:00 EST, 02/19/24 23:06:00 EST Activity As Tolerated Below the Knee Intermittent Pneumatic Compression Device Cardiac Diet Cardiac Monitoring Cardiac Monitoring Chest Pain, AMI Quality Measures HgbA1c Lipid Panel Notify Provider Vital Signs Notify Provider Vital Signs Oxygen Protocol Physical Therapy Evaluate Patient, Develop a Plan of Care and Implement Plan Precautions Resuscitation Status - Full Saline Lock Convert From IV RAJESH Risk Score Troponin TSH With T4fr Reflex Vital Signs Weight Anticipated stay less than 2 midnights. Patient will be observation status. Future Appointments Appointment Date:03/01/2024 11:00:00 AM Scheduled Provider:Charles Townsend MD Location:.Cardiology Clinic Appointment Type:Cardiology New Patient (FT) [facility] 11-11-2024 Hospital Discharge instructions Patient Education 02/20/2024 10:59:08 Chest Wall Pain Chest Wall Pain Chest wall pain is pain in or around the bones and muscles of your chest. Sometimes, an injury causes this pain. Excessive coughing or overuse of arm and chest muscles may also cause chest wall pain.Sometimes, the cause may not be known. This pain may take several weeks or longer to get better. Follow these instructions at home: Managing pain, stiffness, and swelling If directed, put ice on the painful area: ?Put ice in a plastic bag. ?Place a towel between your skin and the bag. ?Leave the ice on for 20 minutes, 2 3 times per day. Activity Rest as told by your health care provider. Avoid activities that cause pain. These include any activities that use your chest muscles or your abdominal and side muscles to lift heavy items. Ask your health care provider what activities are safe for you. General instructions Take [id number] and prescription medicines only as told by your health care provider. Do not use any products that contain nicotine or tobacco, such as cigarettes, e- cigarettes, and chewing tobacco. These can delay healing after injury. If you need help quitting, ask your health care provider. Keep all follow-up visits as told by your health care provider. This is important. Contact a health care provider if: You have a fever. Your chest pain becomes worse. You have new symptoms. Get help right away if: You have nausea or vomiting. You feel sweaty or light-headed. You have a cough with mucus from your lungs (sputum) or you cough up blood. You develop shortness of breath. These symptoms may represent a serious problem that is an emergency. Do not wait to see if the symptoms will go away. Get medical help right away. Call your local emergency services (758 in the [place] Do not drive yourself to the hospital. Summary Chest wall pain is pain in or around the bones and muscles of your chest. Depending on the cause, it may be treated with ice, rest, medicines, and avoiding activities that cause pain. Contact a health care provider if you have a fever, worsening chest pain, or new symptoms. Get help right away if you feel light-headed or you develop shortness of breath. These symptoms maybe an emergency. This information is not intended to replace advice given to you by your health care provider. Make sure you discuss any questions you have with your health care provider. Document Revised: 03/21/2023 Document Reviewed: 03/21/2023 Oration Patient Education [address] Follow Up Care 02/19/2024 17:48:46 With:CONNER ROSALES Address: [address] [place] [address], [address] [address]- [facility] (1) When: Unknown Comments:Patient is to call Doctor's office to make hospital follow up appoinment. With:[facility] - new patient visit Address:Unknown When:03/01/2024 11:00:00 Comments:Will be seeing Dr. Townsend at this appointment. [facility] [id number] NoteChristie Understands Education Yes GetWell Education Video After a Hospital Stay: Managing Appointments Christie Learning Participants [facility]11-11-2024 NoteGetWell Learning Participants [facility] Yes GetWell Education Video [facility]: [facility]24 NoteGetWell Learning Participants Patient GetWell Understands Education Yes GetWell Education Video What Is High Blood Pressure?[facility]11-11-2024 NoteGetWell Learning Participants Patient GetWell Understands Education Yes GetWell Education Video Speak Up: To Prevent FallsAvita Health System [facility]11-11-2024 NoteGetWell Understands Education Yes GetWell Education Video Preventing Falls: The Four Fall Stoppers [employer]ario Learning Participants [facility]11-11-2024 NoteGetWell Education Video High Blood Pressure: Make the Most of Home Monitoring GetWell Learning Participants Patient GetWell Understands Education [facility]11-11-2024 NoteGetWell Learning Participants Patient GetWell Understands Education Yes GetWell Education Video 4 Heart-Healthy Changes to Lower Blood PressureAvita [facility] 02-20-2024 NoteGetWell Learning Participants Patient GetWell Understands Education Yes GetWell Education Video The Effects of High Blood PressureAvita Health System [facility]11-11-2024 Note GetWell Learning Participants Patient GetWell Understands Education Yes GetWell Education Video Preventing Falls: Make Your Home SafeAvita [facility]11-11-2024 Note GetWell Understands Education Yes GetWell Education Video Getting Help When You Leave the Hospital GetWell Learning Participants [facility]11-11-2024 NoteGetWell Understands Education Yes GetWell Education Video Medicine for High Blood Pressure [facility] Learning Participants [facility]11-11-2024 NoteDischarge Summary Admission and Discharge Information Admitting Physician - Ruben TANG DO Admitting Diagnoses: Discharge Order Date Discharge Patient - Ordered -- 02/20/24 10:46:00 EST, to home Discharge Diagnoses 1. Acute chest pain, 02/19/2024 2. Abrasion of knee, right, 02/19/2024 3. Traumatic ecchymosis of right hand, 02/19/2024 4. Traumatic periorbital ecchymosis of right eye, 02/19/2024 5. HTN (hypertension), 02/19/2024 6. Hx of completed stroke, 02/19/2024 7. HLD (hyperlipidemia), 02/19/2024 8. Depression, 02/19/2024 9. ADD (attention deficit disorder), 02/19/2024 10. On deep vein thrombosis (DVT) prophylaxis, 02/19/2024 Anterior chest wall pain, 02/19/2024 Chest pain, 02/19/2024 Facial pain, 02/19/2024 Fall, 02/19/2024 Hand pain-swelling, 02/19/2024 Knee pain-swelling, 02/19/2024 Hospital Course Significant Findings Please refer to history and physical for details of admission. Patient presented to the emergency room yesterday February 18 after having a mechanical fall February 18, 2024. She was in [place] and she was going to the [employer] when she slipped and felllanding on her right side. There is no chest pain, shortness of breath or dizziness prior to the fall. Since her stroke her right leg has been weak. On February 18 yesterday around noontime he started having right-sided chest pain. He thought that this was because of her mechanical fall however thepain persisted and started moving to her left side so she came to the ER to be evaluated. She did have 1 episode of dyspnea with the chest pain. The pain is worse when she takes a deep breath. No other complaints. She was admitted to the medical service after an unremarkable workup in the ED including trauma workup. Troponins are all unremarkable. Patient was placed on the medical service acute chest pain most likely atypical stemming from her fall 2 days ago. Cardiac enzymes are all negative. She is feeling better this morning and again, she can feel the pain when she takes a deep breath. She will be discharged home today as she is anxious for discharge. She would like a referral to [facility] cardiology as she had an incomplete stress test at the beginning of the summer 2023. Made no changes in her meds. NOTE - it took 25 minutes to evaluate and coordinate patient for discharge Procedures and Treatment Provided 1. CT of the head without contrast 02/19/[address] maxillofacial without contrast 02/19/[address] cervical spine without contrast 02/19/[address] of the chest with contrast and abdomen pelvis with contrast 02/19/2024 Services Consulted Consult to Visitor Services Associate - Ordered -- 02/20/24 0:38:51 EST Physical Exam Vitals & Measurements T: 36.7 ???C(Oral) TMIN: 36.5 ???C(Oral) TMAX: 36.8 ???C(Oral) HR: 78(Apical) RR: 16 BP: 149/86 SpO2: 97% HT: 162 cm WT: 105 kg Constitutional: Awake and alert; oriented x 3 with no apparent distress or respiratory distress Head/neck: Neck supple with no palpable lymphadenopathy, bruits or masses; trachea midline; ecchymosis noted right upper eyelid Chest/lungs: Clear to auscultation bilaterally no wheezes or rhonchi noted bilaterally Cardiovascular: Regular rate and rhythm; normal S1-S2 with no murmur; no pitting edema and 2+ pulses bilaterally Gastrointestinal: Soft, nontender, nondistended, positive bowel sounds; obese Neurological: Nonfocal; cranial nerves II through XII appear intact Psychological: Pleasant affect Tests Performed ABO/Rh History Check -- Results Pending -- Hemoglobin A1c -- Results Pending -- CT Abdomen/Pelvis w/ Contrast CT C-Spine w/o Contrast CT Chest w/ Contrast CT Head or Brain w/o Contrast CT Maxillofacial w/o Contrast XR Hand 3+ Views Right XR Knee Complete 4+ Views Right Please visit your patient portal for your results or contact your primary care physician. Discharge Plan Patient Discharge Condition stable Discharge Disposition Discharged to - Home with family care Discharge Diet Discharge Diet(s): Fat Modified- Low cholesterol (02/20/24 10:45:00) Discharge Medication List Prescriptions No active prescription medications Home amlodipine, 5 mg, Oral, Daily atomoxetine, 10 mg, Oral, Daily budesonide, 3 mg, Oral, Daily clopidogrel, 75 mg, Oral, Daily cyproheptadine, 2 mg, Oral, Bedtime escitalopram, 20 mg, Oral, Daily metoprolol, 50 mg, Oral, Daily oxybutynin, 10 mg, Oral, Daily pravastatin, 40 mg, Oral, Bedtime Follow-up With When Contact Information [facility] - new patient visit Additional Instructions: CONNER ROSAL[facility] [address] [place] [address], [place] [address]- [facility] (1) Additional Instructions: Call for followup appointment Patient has mobility limitation that impairs her ability to complete 1 or more mobility related activities in the home. She can safely use a cane and mobility deficit can be resolved with the use of the cane.[facility] Comment on above:Result Comment: Electronically Signed By: Armani Ayon DO\Date and Time Signed: 02/20/24 11:06 [id number] NoteGetWell Understands Education Yes [employer] Education Video Preventing Falls in the Hospital [facility] Learning Participants [facility]11-11-2024 NoteGetWell Education Video Avoiding Infections in the Hospital [facility] Learning Participants Patient [facility] Understands Education [facility]11-11-2024 NoteGetWell Education Video Preventing Falls: Medicine Safety [facility] Learning Participants Patient [facility] Understands Education [facility]11-11-2024 NoteInterdisciplinary Note - PT PT Evaluation done this date. Pt. with on AM-PAC this date. She is safe and steady with functional activities, recommend she uses her cane at home. No further PT needs.[facility]11-10-[facility] NoteHistory and Physical Chief Complaint c/o right knee, right hand pain, constant midsternal chest pain that radiates across chest. on plavix for hx of stroke 4 years ago. pt states fell yesterday. took tylenol History of Present Illness Patient is a 63-year-old female with past medical history as noted below comes in with above-statedchief complaint. Patient had a mechanical fall on 02/18/2024. Patient has mild right-sided deficit of her lower extremity after a stroke. Patient was walking up a ramp and caught her right foot and fell to the ground. Patient denies any chest pain, shortness of breath, dizziness prior to the fall. She states that it was because she was not paying close enough attention to raise her foot. The next day on 02/19/2024 around 12 noon patient began to have right-sided chest pain. Patient felt that this was most likely due to her mechanical fall but as the pain persisted throughout the course of the day and began to moved to her left side she came to the ED for evaluation. Patient arrived to the EDat approximately 1800. Patient states that she did have 1 bout of dyspnea with the chest pain. Patient states that the pain has been on and off for most of the day. Patient denies any associated diaphoresis or nausea. Patient denies any recent fevers, chills, diarrhea, constipation, headache, vision changes. Review of Systems 14 Systems reviewed and negative except as noted in HPI. Scoring Francois Fall Risk Score: 55 High (02/19/24) Physical Exam Vitals & Measurements T: 36.5 ???C(Oral) TMIN: 36.5 ???C(Oral) TMAX: 36.8 ???C(Oral) HR: 81(Monitored) RR: 24 BP: 154/89 SpO2: 94% HT: 162 cm WT: 105.1 kg General: alert, no acute distress Skin: warm, dry Head: no trauma, normocephalic Neck: Trachea midline, no adenopathy, no tenderness Eye: normal conjunctiva, sclera clear, ecchymosis under right eye, no gross visual field deficit. ENMT: oral mucosa moist, no pharyngeal erythema or exudate. hearing grossly intact Cardiovascular: regular rate and rhythm, no murmur/gallop/rub Respiratory: Lungs CTA, respirations non labored , no w/r/r Gastrointestinal: Positive bowel sound, soft, non distended, no tenderness, no guarding. Extremities: no deformity, no trauma Osteopathic: Deferred due to being noncontributory to current case. Neurological: oriented x 4, LOC appropriate for age, CN II-XII intact, motor strength equal & normal bilaterally, sensation equal & normal bilaterally, speech normal Psychiatric: cooperative, affect appropriate for age, normal judgement, normal psychiatric thoughts. Lab Results WBC: 10.2 E9/L (02/19/24 18:26:00) RBC: 4.8 E12/L (02/19/24 18:26:00) HGB: 14.2 gm/dL (02/19/24 18:26:00) Hct: 40.8 % (02/19/24 18:26:00) MCV: 85.1 fL (02/19/24 18:26:00) MCH: 29.7 pg (02/19/24 18:26:00) MCHC: 34.9 gm/dL (02/19/24 18:26:00) RDW: 13.7 % (02/19/24 18:26:00) Platelet: 366 E9/L (02/19/24 18:26:00) MPV: 7.6 fL (02/19/24 18:26:00) Neutro Auto: 60.4 % (02/19/24 18:26:00) Lymph Auto: 27.9 % (02/19/24 18:26:00) [place] Auto: 9.8 % (02/19/24 18:26:00) Eos Auto: 0.5 % (02/19/24 18:26:00) Basophil Auto: 1.4 % (02/19/24 18:26:00) Neutro Absolute: 6.2 E9/L (02/19/24 18:26:00) Lymph Absolute: 2.8 E9/L (02/19/24 18:26:00) [place] Absolute: 1 E9/L (02/19/24 18:26:00) Eos Absolute: 0.1 E9/L (02/19/24 18:26:00) Basophil Absolute: 0.1 E9/L (02/19/24 18::00) PT: 10.8 second(s) (02/19/24 18:26:00) INR: 0.96 (02/19/24::00) PTT: 34.3 second(s) (02/19/24::00) Glucose Lvl: 97 mg/dL (02/19/24::00) BUN: 10 mg/dL (02/19/24::00) Creatinine: 0.6 mg/dL (02/19/24::00) eGFR: 101 mL/min/1.73 m2 (02/19/24:) BUN/Creat Ratio: 17 (02/19/24::00) Sodium Lvl: 139 mmol/L (02/19/24::00) Potassium Lvl: 3.2 mmol/L Low (02/19/24::00) Chloride: 104 mmol/L (02/19/24::00) CO2: 27 mmol/L (02/19/24::00) AGAP: 11 mEq/L (02/19/24::00) Calcium Lvl: 9.1 mg/dL (02/19/24::00) Alk Phos: 91 Int._Unit/L (02/19/24::00) ALT: 32 Int._Unit/L (02/19/24::00) AST: 33 Int._Unit/L (02/19/24::00) Total Protein: 7.2 gm/dL (02/19/24::00) Albumin Lvl: 4.2 gm/dL (02/19/24 18::00) Globulin: 3 gm/dL (02/19/24::00) A/G Ratio: 1.4 (02/19/24 18:26:00) Bili Total: 0.5 mg/dL (02/19/24 18:26:00) Bili Direct: 0 mg/dL (11/10/24 18:26:00) Bili Indirect: 0.5 mg/dL (02/19/24 18:26:00) Lipase Lvl: 33 unit/L (02/19/24 18:26:00) Troponin HS: 6.8 pg/mL Low (02/19/24 19:44:00) U Amph Scr: NEGATIVE (02/19/24 19:57:00) U Camille Scr: NEGATIVE (02/19/24 19:57:00) U Benzodia Scr: NEGATIVE (02/19/24 19:57:00) U Cannab Scr: NEGATIVE (02/19/24 19:57:00) U Cocaine Scr: NEGATIVE (02/19/24 19:57:00) U Opiate Scr: NEGATIVE (02/19/24 19:57:00) U PCP Scr: NEGATIVE (02/19/24 19:57:00) U Fentanyl: NEGATIVE (02/19/24 19:57:00) Ethanol Lvl: <10 (02/19/24 18:26:00) ABO/Rh: O POS (02/19/24 18:26:00) ABSC Gel Interp: Negative (02/19/24 18:26:00) Assessme (more content not included)...[facility] HospitalComment on above:Result Comment: Electronically Signed By: Ruben TANG DO.oscar\Date and Time Signed: 02/19/24 23:14 [id number] History of Present illness Narrative* Bree Figueroa, JERRY - 12/13/2023 4:00 PM EDT Images from the original note were not included. CHIEF COMPLAINT REASON FOR VISIT : inattention, back pain HPI: Rosalba River is a 63 y.o. female who presents for distant health visit. She is at home. She consents to visit. She reports her back pain is less. She has been easing into walking for exercise. She needs refill of Strattera which helped her focus and inattention. She has depression and is treated with Lexapro which helps. CURRENT MEDICATIONS: ALLERGIES/DISCONTINUE MEDICATIONS Current Outpatient Medications Medication Instructions albuterol HFA 90 mcg/act inhaler 2 puffs, Inhalation, Every 4 hours PRN amLODIPine (NORVASC) 5 mg, Oral, Daily atomoxetine (STRATTERA) 10 mg, Oral, Daily, Swallow capsule whole; do not open. If opened accidentally, do not touch eyes; wash hands immediately (product is an eye irritant). budesonide EC (ENTOCORT EC) 9 mg, Oral, Daily clopidogrel (PLAVIX) 75 mg, Oral, Daily cyproheptadine (PERIACTIN) 4 mg, Oral, Nightly escitalopram (Lexapro) 20 MG tablet TAKE 1 TABLET BY MOUTH EVERY DAY FOR 90 DAYS fluticasone (Flonase) 50 MCG/ACT nasal spray SPRAY 1 SPRAY INTO EACH NOSTRIL EVERY DAY FOR 90 DAYS metoprolol succinate XL (TOPROL-XL) 50 mg, Oral, Daily, Do not crush or chew. omeprazole (PRILOSEC) 40 mg, Oral, Daily before breakfast oxybutynin XL (Ditropan-XL) 10 MG 24 hr tablet TAKE 1 TABLET BY MOUTH EVERY DAY FOR 90 DAYS pravastatin (Pravachol) 40 MG tablet TAKE 1 TABLET BY MOUTH EVERY DAY IN THE EVENING FOR 90 DAYS Allergies Allergen Reactions Aspirin Shortness of breath Nsaids Shortness of breath Ibuprofen Hives Meperidine Hcl Unknown Meperidine Rash Sulfa Antibiotics Rash Medications Discontinued During This Encounter Medication Reason permethrin (Elimite) 5 % cream estradiol (Estrace) 0.1 MG/GM vaginal cream ciprofloxacin (Cipro) 250 MG tablet albuterol (2.5 MG/3ML) 0.083% nebulizer solution PAST MEDICAL HISTORY: SURGICAL/SOCIAL/FAMILY HISTORY DEPRESSION SCREEN: Past Medical History: Diagnosis Date ADHD (attention deficit hyperactivity disorder) ([facility]) 2022 Alcohol abuse Anxiety Arthritis Asthma ([facility]) bleeding problems Colitis 09/09/2022 Depression ([facility]) Elevated cholesterol ([facility]) Encounter for screening colonoscopy 2017 H/O colonoscopy 2005 H/O dilation of urethra H/O esophagogastroduodenoscopy 2005 H/O laparoscopy History of angina History of being [place]06[place] [facility] 11/07/16 History of being hospitalized 01/22/2017 [facility] - Discharged 01/25/17 Small Bowel obstruction History of blood transfusion Hyperlipidemia ([facility]) Hypertension ([facility]) IBS (irritable bowel syndrome) 2011 Infertility, female MVP (mitral valve prolapse) Obesity S/P appy Stroke ([facility]) 2015 TIA (transient ischemic attack) 2017 left Urinary tract infection Varicella Visual impairment Past Surgical History: Procedure Laterality Date ANKLE FRACTURE SURGERY Left 1991 Dr Farris APPENDECTOMY 1983 CHOLECYSTECTOMY 07/2020 COLONOSCOPY 2011, 2014 and 2017 2022 DENTAL SURGERY FRACTURE SURGERY 1994 OTHER SURGICAL HISTORY Procedure:tubal insuffulation & lysis;Disease:laparoacopy TONSILLECTOMY 1970 TUBAL LIGATION WRIST SURGERY Left 1995 Social History Tobacco Use Smoking status: Former Current packs/day: 0.00 Average packs/day: 0.3 packs/day for 22.1 years (5.5 ttl pk-yrs) Types: Cigarettes Start date: 08/16/1999 Quit date: 09/18/2021 Years since quittin.2 Passive exposure: Never Smokeless tobacco: Never Vaping Use Vaping status: Never Used Substance Use Topics Alcohol use: Not Currently Comment: Caffeine intake: 1-2 cups per day Drug use: Never Family History Problem Relation Name Age of Onset Lung cancer Mother Heart disease Father Manfred Arthritis Father Manfred Hypertension Sister Sandy Lantigua Asthma Sister Sandy Lantigua Miscarriages / Stillbirths Sister Sandy Lantigua Hypertension Brother [place] Diabetes Mother's Sister Aunt Hypertension Sister Mabel River Depression: Not at risk (07/21/2023) PHQ-2 PHQ-2 Score: 0 REVIEW OF SYMPTOMS: Review of Systems Constitutional: Negative for chills, fatigue and fever. HENT: Negative for tinnitus. Eyes: Negative for photophobia. Respiratory: Negative for shortness of breath. Cardiovascular: Negative for chest pain. Gastrointestinal: Negative for nausea and vomiting. Genitourinary: Negative for frequency. Musculoskeletal: Positive for back pain. Negative for gait problem and neck pain. Neurological: Negative for dizziness, tremors, weakness, light-headedness, numbness and headaches. Psychiatric/Behavioral: Positive for decreased concentration. OBJECTIVE: 08/18/2023 8:57 AM 07/21/2023 4:07 PM 07/21/2023 3:57 PM Vitals BMI 41.1 kg/m2 40.92 kg/m2 40.92 kg/m2 BSA (m2) 2.16 m2 2.16 m2 2.16 m2 Systolic 144 124 124 Diastolic 86 72 72 Heart Rate 76 76 Temp 98.1 F 98.1 F Height (in) 5' 3 5' 3 5' 3 Weight (lb) 232 231 231 Visit Report Report Report Report Report Report EXAM: Neurological Exam Mental Status Awake, alert and oriented to person, place and time. Oriented to person, place and time. Speech is normal. Language is fluent with no aphasia. Unable to perform serial calculations. Difficulty spelling words backwards. PROCEDURE: ASSESSMENT AND PLAN: Diagnoses and all orders for this visit: ADD (attention deficit disorder) without hyperactivity - atomoxetine (Strattera) 10 MG capsule; Take 1 capsule (10 mg) by mouth Daily Swallow capsule whole; do not open. If opened accidentally, do not touch eyes; wash hands immediately (product is an eyeirritant). Lumbosacral radiculopathy at L5 Degenerative disc disease, lumbar 63 year old female with inattention/lack of focus and managed with Strattera. She has back pain kristina bilateral L5 radiculopathy due to underlying degenerative changes and scoliosis. She is currentlystable with current treatment. This was discussed with patient, all questions answered. Total time 20 minutes spent reviewing records, performing medically appropriate exam, counseling , education, ordering medication, tests, and/or procedures, documenting health information into the health record, communicating results to the patient, and coordinating care. documented in this encounterSaint [facility] [id number] Evaluation note* Encounter Date Diagnosis Assessment Notes Treatment Notes Treatment Clinical Notes Feb, Microscopic colitis (ICD-10 - K52.89) PATIENT DOING WELL ON THE BUDESONIDE. WILL HAVE PATIENT STOP THE MEDICATION AFTER SHE HAS BEEN ON IT FOR ONE YEAR AND SEE HOW SHE DOES. [employer] Other 05-30-2023 Evaluation note* Encounter Date Diagnosis Assessment Notes Treatment Notes Treatment Clinical Notes August, Diarrhea (ICD-10 - R19.7) August, Microscopic colitis (ICD-10 - K52.89) PATIENT IS IMPROVING ON PREDNISONE. SHE SHOULD ALSO CONTINUE ON HER PANTOPRAZOLE TO HELP KEEP INFLAMMATION UNDER CONTROL. START BUDESONIDE 3 MG 3 PO QAM FOR MAINTENANCE THERAPY. RETURN VISIT HERE IN SIX MONTHS [employer] Other 08-02-2022 NoteHNO ID: [id number] Author: Brandi Allen DO Service: ? Author Type: Physician Type: [...] agree with all of its relevant components. Brandi Allen DO November 10, 2021 3:25 [facility] 11-10-2021 History of Present illness Narrative* Brandi Allen DO - 11/10/2021 3:25 PM EDT Visual field defect (primary encounter diagnosis) I [...] and plan as stated above and agree withall of its relevant components. Brandi Allen DO November 10, 2021 3:25 PM [facility] + Plan note Future Appointments Appointment Date:04/25/2024 07:00:00 AM Scheduled Provider: Location:FT.CARDIO Appointment Type:CV Echo (FT) Appointment Date:05/09/2024 09:15:00 AM Scheduled Provider:Luis Martinez PA-C Location:[facility]Cardiology Clinic Appointment Type:Cardiology Follow Up (FT) Future Scheduled Tests Radiology* Echo Transthoracic Complete 04/25/24 [facility] 01-01-2015 History general Narrative - Reported* Type Description Date Medical History Anxiety Medical History severe depression Medical History mild stroke in april 2014 Medical History high blood pressure Medical History Colonoscopy 02-03-15 Medical History Hypertension, essential, benign Medical History Osmotic diarrhea Medical History Pancolitis Medical History BMI 36.0-36.9,adult Medical History Body mass index (BMI) of 35.0-35 .9 in adult Medical History Dietary counseling and surveilla nce Surgical History appendix 1982 Surgical History tonsils AGE 12 Surgical History left ankle 1991 Hospitalization History stroke 04/2014 Hospitalization History see above [employer] Other 01-01-2015 History general Narrative - Reported* Type Description Date Medical History Anxiety Medical History severe depression Medical History mild stroke in april 2014 Medical History high blood pressure Medical History Colonoscopy 02-03-15 Medical History Hypertension, essential, benign Medical History Osmotic diarrhea Medical History Pancolitis Medical History BMI 36.0-36.9,adult Medical History Body mass index (BMI) of 35.0-35 .9 in adult Medical History Dietary counseling and surveilla nce Surgical History appendix 1982 Surgical History tonsils AGE 12 Surgical History left ankle 1991 Surgical History TOP TEETH EXTRACTED Hospitalization History stroke 04/2014 Hospitalization History see above [employer] Other Evaluation + Plan note Future Appointments Appointment Date:04/16/2024 02:30:00 PM Scheduled Provider:Luis Martinez PA-C Location:[facility]Cardiology Clinic Appointment Type:Cardiology Follow Up (FT) Future Scheduled Tests Radiology* NM Myocardial Spect Rest/Stress 1 Day 03/01/24 * Echo Transthoracic Complete 03/01/24 [facility] Evaluation note* Diagnosis Visual field defect- Primary Visual field defect, unspecified [facility] Hospital discharge follow-up- Primary Other follow-up examination Traumatic injury of head, subsequent encounter Hypertensive urgency (CMS/HCC) documented in this encounter [facility]* Diagnosis ADD (attention deficit disorder) without hyperactivity- Primary Attention deficit disorder without mention of hyperactivity Lumbosacral radiculopathy at L5 Degenerative disc disease, lumbar documented in this encounter [facility] HealthcareEvaluation note* Diagnosis Acute vaginitis- Primary Unspecified vaginitis and vulvovaginitis Vaginal pain Unspecified symptom associated with female genital organs Pelvic pressure in female Leukocytes in urine Other nonspecific finding on examination of urine Hematuria, unspecified type documented in this encounter [facility] Narrative No data available for this section [facility] Hospital Discharge instructions No data available for this section [facility] Progress note No data available for this section [facility] Summary Purpose Family History No Family [...] History Records FoundNo Family History Records Found No data available for this section No Family History Records FoundNo Family History Records Found No data available for this section No data available for this section No Family History Records FoundNo Family History [...] section and content) DATE CREATED AUTHOR 10/19/2018 [facility] DATE CREATED AUTHOR AUTHOR'S ORGANIZ ATION 11/12/2021 [facility] DATE CREATED AUTHOR AUTHOR'S ORGANIZ ATION 08/23/2022 [facility] DATE CREATED AUTHOR AUTHOR'S ORGANIZ ATION 12/11/2022 [facility] DATE CREATED AUTHOR AUTHOR'S ORGANIZ ATION 02/20/2024 [facility] DATE CREATED AUTHOR AUTHOR'S ORGANIZ ATION 02/22/2024 [facility] DATE CREATED AUTHOR AUTHOR'S ORGANIZ ATION 04/26/2024 [facility] DATE CREATED AUTHOR AUTHOR'S ORGANIZ ATION 04/26/2024 [facility] EPIC Source Comments (unrecognize d section and content) In the event this informatio n is protected by the Federal Confidentiality of Alcohol and Drug Abuse Patient Records regulations: The Federal rules restrict any use of the information to criminally investigate or prosecute any alcohol or drug abuse patient.[facility] Reason for Visit (unrecogniz ed section and content) Reason Comments Diplopia x the past year Blurred Vision OD Glare Driving in the dark Reason Comments Hospital Follow-up Reason Comments sick visit Care Teams (unrecognized sec tion and content) Wiper Blender Relationship Specialty Start Date End Date Larry Granado PCP - General 05/17/06 Wiper Blender Relationship Specialty Start Date End Date Conner Rosales DO [address] [place] [address] PCP - General Family Medicine 09/09/22 Conner Rosales DO [address] [place] [address] [address] - [facility] 04/11/23 04/10/82 Sujata Felix MD [address] [place] [address] Referring Physician Neurology 07/21/23 Wiper Blender Relationship Specialty Start Date End Date Conner Rosales, DO [address] [place] [address] PCP - General Family Medicine 09/09/22 Conner Rosales, DO [address] [place] [address] [facility] 04/11/23 04/10/82 Sujata Felix MD [address] [place] [address] Referring Physician Neurology 07/21/23 Wiper Blender Relationship Specialty Start Date End Date Conner Rosales, [address] [place] [address] PCP - General Family Medicine 09/09/22 Conner Rosales, DO [address] [place] [address] [facility] 12/10/22 04/10/82 Sujata Felix MD [address] [place] [address] Referring Physician Neurology 07/21/23 Wiper Blender Relationship Specialty Start Date End Date Conner Rosales, DO [address] [place] [address] PCP [facility] Family [facility] 09/09/22 Conner Rosales, [address] [place] [address] [facility] 12/10/22 04/10/82 Sujata Felix MD [address] [place] [address] Referring Physician Neurology 07/21/23 Wiper Blender Relationship Specialty Start Date End Date Conner Rosales, DO [address] [place] [address] PCP - [facility] Family [facility] 09/09/22 Conner Rosales, DO [address] [place] [address] [facility] 04/11/23 04/10/82 Sujata Felix MD [address] [place] [address] Referring Physician Neurology 07/21/23 Wiper Blender Relationship Specialty Start Date End Date Conner Rosales, [address] [place] [address] [facility] 09/09/22 Conner Rosales, DO [address] [place] [address] [facility] 04/11/23 04/10/82 Sujata Felix MD [address] [place] [address] Referring Physician Neurology 07/21/23 FOR RECORDS PERTAINING TO PATIENTS WHO ARE [...] BE BASED ON THE PRIMARY CLINICAL RECORDS. [facility] [employer] [facility]. provides no warranty or guarantee of the accuracy or completeness of information in this document.
--- NOTE | 2024-04-29 09:56 | ECG_ITS ---
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
--- NOTE | 2024-04-29 09:57 | XR_ITS ---
[address] [address] Patient Name: PRASANNA RIVER MRN: [id number] date: 1960 Sex: F Assigned Patient Location: ER Current Patient Location: ER Accession/Order Number: [id number] Exam Date: 04/29/2024 10:20 Report Date: 04/29/2024 11:05 At the request of: CINDY ANNA Procedure: XR chest 1V EXAM: XR chest 1V INDICATION: cough. COMPARISON: Chest x-ray 03/16/2021 TECHNIQUE: Single frontal view of the chest FINDINGS: Normal cardiomediastinal contours. Normal pulmonary vasculature. No acute infiltrative process. No pleural effusion or pneumothorax. No acute osseous abnormality. XR/XR chest 1V IMPRESSION: No acute cardiopulmonary process. Electronically authenticated by: FIDEL RODRIGUEZ Date: 04/29/2024 11:05
[2024-04-29 10:27] LABS: Basophils Percent Auto 0.2 % (0.2-2.0); Eosinophils Percent Auto 0.2 % (0.9-7.0); Hematocrit 43.2 % (36.0-48.0); Hemoglobin 14.9 g/dL (12.0-16.0); Immature Granulocytes Abs Auto 0.02 10^3/uL (0.00-0.03); Immature Granulocytes Pct Auto 0.4 % (0.0-0.5); Lymphocytes Absolute Auto 1.4 10^3/uL (1.2-3.8); Lymphocytes Percent Auto 28.3 % (20.5-60.0); Mean Corpuscular HGB Conc 34.5 g/dL (29.9-35.2); Mean Corpuscular Hemoglobin 29.6 pg (26.7-34.0); Mean Corpuscular Volume 85.7 fL (81.0-99.0); Mean Platelet Volume 9.5 fL (9.5-13.5); Monocytes Absolute Auto 0.6 10^3/uL (0.3-0.8); Monocytes Percent Auto 13.3 % (1.7-12.0); Neutrophils Absolute Auto 2.8 10^3/uL (1.4-6.5); Neutrophils Percent Auto 57.6 % (43.0-75.0); Platelet Count 245 10^3/uL (150-450); Red Blood Count 5.04 10^6/uL (4.20-5.40); Red Cell Distribution Width 12.5 % (11.0-15.0); White Blood Count 4.8 10^3/uL (4.0-11.0)
[2024-04-29 10:47] LABS: Magnesium 1.9 mg/dL (1.8-2.4)
[2024-04-29 10:49] LABS: Influenza Virus A Antigen Negative; Influenza Virus B Antigen Negative; Internal Control Within Normal Limits; Respiratory Syncytial Virus Not Detected (NOT DETECTE); SARS-CoV-2 Ag NEGATIVE (NEGATIVE)
[2024-04-29 10:57] LABS: Alanine Aminotransferase 30 U/L (14-59); Albumin Globulin Ratio 0.9; Albumin Level 3.4 g/dL (3.4-5.0); Alkaline Phosphatase 91 U/L (46-116); Anion Gap 14.6; Aspartate Amino Transferase 47 U/L (15-37); BUN Creatinine Ratio 9.7; Bilirubin Total 0.3 mg/dL (0.2-1.0); Calcium 8.7 mg/dL (8.5-10.1); Carbon Dioxide 26.3 mmol/L (21.0-32.0); Chloride 98 mmol/L (98-107); Estimated GFR (African America >60 (>=60 mL/min/1.73m^2); Estimated GFR (Non-African Ame >60 (>=60 mL/min/1.73m^2); Globulin 3.8 g/dL; Glucose 111 mg/dL (74-106); Lactate/Lactic Acid 1.3 mmol/L (0.4-2.0); Sodium 136 mmol/L (136-145); Total Protein 7.2 g/dL (6.4-8.2); Troponin I High Sensitivity 19.9 pg/mL (4.0-51.3)
[2024-04-29 11:09] LABS: Potassium 2.9 mmol/L (3.5-5.1)
[2024-04-29 11:14] LABS: Prothrombin Time 10.6 sec (9.0-11.6)
--- NOTE | 2024-04-29 11:30 | ED_ITS ---
HPI HPI - General Adult General Chief complaint: Weakness Stated complaint: GENERAL WEAKNESS Time Seen by Provider: 04/29/24 09:46 Source: patient Mode of arrival: ambulance Limitations: no limitations History of Present Illness HPI narrative: The patient have a history of asthma and history of smoking cigarettes a long time ago is coming to the ER with almost 1 week to 10 days history of cough associated with generalized weakness, no nausea no vomiting no specific abdominal pain and no diarrhea or constipation The patient had no exposure to anybody with similar symptoms She also had no difficulty breathing but she have increase in the phlegm production when coughing Related Data Home Medications ?Medication ?Instructions ?Recorded ?Confirmed albuterol sulfate 90 mcg/actuation 2 inh inhalation Q4H PRN shortness 11/16/23 11/16/23 aerosol inhaler of breath or wheezing amlodipine 5 mg tablet 5 mg PO DAILY 11/16/23 11/16/23 budesonide 3 mg 9 mg PO DAILY 11/16/23 11/16/23 capsule,delayed,extended release clopidogrel 75 mg tablet 75 mg PO DAILY 11/16/23 11/16/23 cyproheptadine 4 mg tablet mg 11/16/23 escitalopram oxalate 20 mg tablet 20 mg PO DAILY 11/16/23 11/16/23 hydrochlorothiazide 25 mg tablet 25 mg PO DAILY 11/16/23 11/16/23 metoprolol succinate 25 mg 25 mg PO DAILY 11/16/23 11/16/23 tablet,extended release 24 hr oxybutynin chloride 10 mg 10 mg PO DAILY 11/16/23 11/16/23 tablet,extended release 24 hr pravastatin 40 mg tablet 40 mg PO DAILY 11/16/23 11/16/23 Previous Rx's ?Medication ?Instructions ?Recorded doxycycline hyclate 100 mg tablet 100 mg PO BID 7 days #14 tabs 04/29/24 prednisone 20 mg tablet 40 mg (2 x 20 mg) PO DAILY 3 days 04/29/24 #6 tabs Allergies Allergy/AdvReac Type Severity Reaction Status Date / Time aspirin Allergy Severe Anaphylaxis Verified 11/16/23 19:22 NSAIDS (Non-Steroidal AdvReac Severe Vomiting Verified 11/16/23 19:22 Anti-Inflamma Opioid HPI Opioid Management Most Recent Opioid Data: Last Pain Scale 4 04/29/24 10:19 04/29/24 Last ED Pain Assessment 04/29/24 10:19 Review of Systems ROS Status of ROS 10 or more systems reviewed and unremark able except as noted in history and below PFSH PFS Social History Little interest or pleasure in doing things: not at all Feeling down, depressed, or hopeless: not at all Exam Narrative Exam Narrative: Nurses notes and vital signs reviewed and patient is not hypoxic. General: Well-appearing and in no apparent distress. Skin: Warm, dry, no pallor noted. No rash. Head: Normocephalic, atraumatic. Neck: Supple, non-tender. Eye: Pupils are equal, round and EOMI. No scleral icterus. Ears, Nose, Mouth, and Throat: TM are clear, no nasal mucosal hypertrophy. Oral mucosa is moist, no posterior oropharynx erythema, uvula is mid-line Cardiovascular: Regular Rate and Rhythm without murmur, gallop or rub. Respiratory: No accessory muscle use or respiratory distress. Lungs are clear to auscultation, no wheezing, rales or rhonchi Chest Wall: no tenderness Back: No midline thoracic or lumbar vertebral tenderness. No CVA tenderness Musculoskeletal: normal ROM, no calf or popliteal tenderness, no lower extremity edema/swelling GI: Abdomen is soft, non-distended. Normal bowel sounds. No masses appreciated. No tenderness to palpation. No rebound, guarding, or rigidity noted. Neurological: A&O x4. No cranial nerve dysfunction observed. No truncal ataxia. Moves all extremities. Sensation intact. Psychiatric: Cooperative and interactive. Normal mood and affect. Constitutional Vital Signs, click to edit/add: Last Vital Signs Temp 98.1 F 04/29/24 09:51 Pulse 85 04/29/24 11:30 Resp 12 04/29/24 11:30 BP 136/89 04/29/24 11:31 Pulse Ox 96 04/29/24 11:30 O2 Del Method Room Air 04/29/24 10:19 Course Vital Signs Vital signs: Vital Signs Pulse Oximetry 94 L 04/29/24 09:47 Temperature 98.1 F 04/29/24 09:51 Pulse Rate 85 04/29/24 11:30 Respiratory Rate 12 04/29/24 11:30 Blood Pressure 136/89 04/29/24 11:31 Pulse Oximetry 96 04/29/24 11:30 Oxygen Delivery Method Room Air 04/29/24 10:19 Medical Decision Making MDM Narrative Medical decision making narrative: The patient potassium was 2.9 she was provided with p.o. potassium in the ER in addition to instructed about the diet that is high in potassium EKG showing sinus rhythm with a heart rate of [address] elevation or depression Otherwise the CBC showed no acute pathology and chest x-ray was within normal The patient was treated for possible COPD exacerbation with repletion of potassium The patient is to follow up with primary care physician in next 2-3 days or to return to the emergency department should any of the signs or symptoms worsen or new symptoms develop. The patient agrees with the following Diagnosis and Treatment plan and the patient will be discharged home. Lab Data Labs: Lab Results 04/29/24 Range/Units 10:15 WBC 4.8 (4.0-11.0) 10^3/uL RBC 5.04 (4.20-5.40) 10^6/uL Hgb 14.9 (12.0-16.0) g/dL Hct 43.2 (36.0-48.0) % MCV 85.7 (81.0-99.0) fL MCH 29.6 (26.7-34.0) pg MCHC 34.5 (29.9-35.2) g/dL RDW 12.5 (11.0-15.0) % Plt Count 245 (150-450) 10^3/uL MPV 9.5 (9.5-13.5) fL Neut % (Auto) 57.6 (43.0-75.0) % Lymph % (Auto) 28.3 (20.5-60.0) % [place] % (Auto) 13.3 H (1.7-12.0) % Eos % (Auto) 0.2 L (0.9-7.0) % Baso % (Auto) 0.2 (0.2-2.0) % Neut # (Auto) 2.8 (1.4-6.5) 10^3/uL Lymph # (Auto) 1.4 (1.2-3.8) 10^3/uL [place] # (Auto) 0.6 (0.3-0.8) 10^3/uL Eos # (Auto) 0.0 (0.0-0.7) 10^3/uL Baso # (Auto) 0.0 (0.0-0.1) 10^3/uL Abs Immat Gran (auto) 0.02 (0.00-0.03) 10^3/uL Imm/Tot Granulo (auto) 0.4 (0.0-0.5) % PT 10.6 (9.0-11.6) sec INR 1.00 Sodium 136 (136-145) mmol/L Potassium 2.9 L* (3.5-5.1) mmol/L Chloride 98 (98-107) mmol/L Carbon Dioxide 26.3 (21.0-32.0) mmol/L Anion Gap 14.6 BUN 9.0 (7.0-18.0) mg/dL Creatinine 0.93 (0.55-1.02) mg/dL Est GFR ( Amer) >60 (>=60 mL/min/1.73m^2) Est GFR (Non-Af Amer) >60 (>=60 mL/min/1.73m^2) BUN/Creatinine Ratio 9.7 Glucose 111 H (74-106) mg/dL Lactate 1.3 (0.4-2.0) mmol/L Calcium 8.7 (8.5-10.1) mg/dL Magnesium 1.9 (1.8-2.4) mg/dL Total Bilirubin 0.3 (0.2-1.0) mg/dL AST 47 H (15-37) U/L ALT 30 (14-59) U/L Alkaline Phosphatase 91 (46-116) U/L Troponin I High Sens 19.9 (4.0-51.3) pg/mL Total Protein 7.2 (6.4-8.2) g/dL Albumin 3.4 (3.4-5.0) g/dL Globulin 3.8 g/dL Albumin/Globulin Ratio 0.9 Influenza Type A Ag Negative Influenza Type B Ag Negative RSV Antigen Not detected (NOT DETECTE) SARS-CoV-2 Ag (CV2AG) Negative (NEGATIVE) Discharge Plan Discharge Chief Complaint: Weakness Clinical Impression: Hypokalemia, COPD exacerbation Patient Disposition: Home, Self-Care Time of Disposition Decision: 11:27 Condition: Good Prescriptions / Home Meds: New prednisone 20 mg tablet 40 mg PO DAILY 3 Days Qty: 6 0RF doxycycline hyclate 100 mg tablet 100 mg PO BID 7 Days Qty: 14 0RF No Action albuterol sulfate 90 mcg/actuation HFA aerosol inhaler 2 inh inhalation Q4H PRN (Reason: shortness of breath or wheezing) amlodipine 5 mg tablet 5 mg PO DAILY budesonide 3 mg capsule,delayed,extend.release 9 mg PO DAILY clopidogrel 75 mg tablet 75 mg PO DAILY cyproheptadine 4 mg tablet escitalopram oxalate 20 mg tablet 20 mg PO DAILY hydrochlorothiazide 25 mg tablet 25 mg PO DAILY metoprolol succinate 25 mg tablet extended release 24 hr 25 mg PO DAILY oxybutynin chloride 10 mg tablet extended release 24hr 10 mg PO DAILY pravastatin 40 mg tablet 40 mg PO DAILY Print Language: French Instructions: Potassium Content of Foods List (ED), Hypokalemia (ED), COPD (Chronic Obstructive Pulmonary Disease) (DC) Referrals: GRACE SIGALA [Primary Care Provider] - 1 week Discharge Date/Time: 04/29/24 11:56
[2024-04-29] MEDS: POTASSIUM BICARBONATE/CIT 25 MEQ TABLET EFF 50 MEQ PO (11:39)
[2024-04-29] MEDS: METHYLPREDNISOLONE SOD SUCC PF 40 MG/ML VIAL IVP (11:39)
== END 2024-04-29 11:56 | disposition home or self-care (01) ==
PROVIDERS: Emergency Provider Emergency Medicine; PCP Family Medicine
DX: J44.1 Chronic obstructive pulmonary disease with (acute) exacerbation (principal); E87.6 Hypokalemia; F17.210 Nicotine dependence, cigarettes, uncomplicated; R53.1 Weakness
CPT/HCPCS: 36415; 71045; 80053; 83605; 83735; 84484; 85025; 85610; 87420; 87804; 87811; 93005; 96374; 99285; J2919